=== PATIENT | male | born 1970 | race Caucasian/White ===

== ENCOUNTER → 2017-08-09 | Outpatient (CLI) | payer BC ==
[2017-08-09 07:35] LABS: Basophils # (A) 0.1 k/uL (0-0.2); Basophils % (A) 2 %; CH 30.5; CHCM 34.2; Eosinophils # (A) 0.2 k/uL (0-0.7); Eosinophils % (A) 4 %; HDW 2.52; HGB 16.2 gm/dL (13.0-17.5); Luc # (Auto) 0.24; Luc % (Auto) 3; Lymphocytes # (A) 2.5 k/uL (1.0-4.8); Lymphocytes % (A) 35 %; MCH 28.4 pg (25.0-35.0); MCHC 31.7 g/dL (31.0-37.0); MCV 89.8 fL (80.0-100.0); Mean Platelet Volume 7.8; Monocytes # (A) 0.6 k/uL (0-1.0); Monocytes % (A) 9 %; Neutrophils # (A) 3.3 k/uL (1.3-7.7); Neutrophils % (A) 47 %; RBC 5.68 m/uL (4.30-5.90); RDW 13.6 % (11.5-15.5); WBC (Perox) 6.94
[2017-08-09 07:59] LABS: ALT 66 U/L (21-72); AST 43 U/L (17-59); Alkaline Phosphatase 64 U/L (38-126); Anion Gap 9 mmol/L; Blood Urea Nitrogen 19 mg/dL (9-20); Calcium 9.3 mg/dL (8.4-10.2); Carbon Dioxide 31 mmol/L (22-30); Chloride 107 mmol/L (98-107); Cholesterol 162 mg/dL (<200); Glucose 98 mg/dL (74-99); HDL Cholesterol 41 mg/dL (40-60); Non-African American GFR(MDRD) >60 (>60 ml/min/1.73 sqM); Sodium 147 mmol/L (137-145); Total Bilirubin 0.7 mg/dL (0.2-1.3)
== END | disposition home or self-care (01) ==
LOC: LABWHC1 07:07
PROVIDERS: ATTEND Internal Medicine
DX: Z00.00 Encounter for general adult medical examination without abnormal findings (principal)
CPT/HCPCS: 36415; 80053; 80061; 85025

== ENCOUNTER 2018-09-18 11:09 | Observation (INO) | payer BC ==
[2018-09-18] MEDS ORDERED: ASPIRIN 81 MG PO STA (11:48)
[2018-09-18] MEDS ORDERED: NITROGLYCERIN OINT 1 INCH/GM PACKET TOPICAL STA (11:48)
--- NOTE | 2018-09-18 11:51 | ED ---
General Adult HPI - General Chief complaint: Chest Pain Stated complaint: Chest pain/sob Time Seen by Provider: 09/18/18 11:25 Source: patient, RN notes reviewed Mode of arrival: ambulatory Limitations: no limitations - History of Present Illness Initial comments: This is a 48-year-old male who presents emergency Department with a past history for smoking which he quit in December. Patient states he has high blood pressure high cholesterol. Patient also states he has a family history of heart disease with his dad having had a stent in the past per patient states she's been having intermittent chest pain but today it started when he woke up and he continues to be there now. Patient states the pain radiates to his left shoulder. Patient states she's also short of breath. Patient denies any diaphoresis but he does state he was nauseated with the pain. Patient states he was not exerting himself when the pain occurred. Patient denies any lightheadedness dizziness or near syncopal episode. Patient denies any abdominal pain patient denies any recent fever chills or cough. Patient denies any leg swelling or calf tenderness. - Related Data Home Medications Medication Instructions Recorded Confirmed Aspirin EC [Ecotrin] 325 mg PO DAILY 09/18/18 09/18/18 Escitalopram [Lexapro] 20 mg PO DAILY 09/18/18 09/18/18 Olmesartan Medoxomil [Benicar] 40 mg PO DAILY 09/18/18 09/18/18 Omeprazole 20 mg PO DAILY 09/18/18 09/18/18 Simvastatin [Zocor] 20 mg PO DAILY 09/18/18 09/18/18 Allergies Allergy/AdvReac Type Severity Reaction Status Date / Time Iodinated Contrast- Oral and AdvReac Unknown Verified 09/18/18 11:41 IV Dye Review of Systems ROS Statement: Those systems with pertinent positive or pertinent negative responses have been documented in the HPI. ROS Other: All systems not noted in ROS Statement are negative. Past Medical History Past Medical History: GERD/Reflux, Hyperlipidemia, Hypertension History of Any Multi-Drug Resistant Organisms: None Reported Past Surgical History: Cholecystectomy Past Psychological History: Depression Smoking Status: Former smoker Past Alcohol Use History: Rare Past Drug Use History: None Reported General Exam - General Exam Comments Initial Comments: GENERAL: Patient is well-developed and well-nourished. Patient is nontoxic and well- hydrated and is in mild distress. ENT: Neck is soft and supple. No significant lymphadenopathy is noted. Oropharynx is clear. Moist mucous membranes. Neck has full range of motion without eliciting any pain. EYES: The sclera were anicteric and conjunctiva were pink and moist. Extraocular movements were intact and pupils were equal round and reactive to light. Eyelids were unremarkable. PULMONARY: Unlabored respirations. Good breath sounds bilaterally. No audible rales rhonchi or wheezing was noted. CARDIOVASCULAR: There is a regular rate and rhythm without any murmurs gallops or rubs. ABDOMEN: Soft and nontender with normal bowel sounds. No palpable organomegaly was noted. There is no palpable pulsatile mass. SKIN: Skin is clear with no lesions or rashes and otherwise unremarkable. NEUROLOGIC: Patient is alert and oriented x3. Cranial nerves II through XII are grossly intact. Motor and sensory are also intact. Normal speech, volume and content. Symmetrical smile. MUSCULOSKELETAL: Normal extremities with adequate strength and full range of motion. No lower extremity swelling or edema. No calf tenderness. LYMPHATICS: No significant lymphadenopathy is noted PSYCHIATRIC: Normal psychiatric evaluation. Limitations: no limitations Course Vital Signs 09/18/18 11:29 Temperature 98.5 F Pulse Rate 80 Respiratory 18 Rate Blood Pressure 162/109 O2 Sat by Pulse 98 Oximetry Medical Decision Making - Medical Decision Making EKG shows normal sinus rhythm at 70 bpm [place] interval is 152 QRS is 14 QT interval 392 QTC is 423. Patient's EKG shows no ST segment elevation or depression or T wave abnormalities are noted. Chest x-ray shows no acute normalities. Patient got aspirin and Nitropaste emergency department Patient was started on heparin because the unstable angina. I admitted the patient I spoke with some physicians agreed to admit the patient admitted the patient I consult cardiology continued Nitropaste and aspirin and heparin on the floor. - Lab Data Result diagrams: 09/18/18 12:12 09/18/18 12:12 Lab Results 09/18/18 09/18/18 09/18/18 Range/Units 12:12 12:12 12:12 WBC 6.3 (3.8-10.6) k/uL RBC 4.93 (4.30-5.90) m/uL Hgb 14.4 (13.0-17.5) gm/dL Hct 42.3 (39.0-53.0) % MCV 85.9 (80.0-100.0) fL MCH 29.2 (25.0-35.0) pg MCHC 34.0 (31.0-37.0) g/dL RDW 12.5 (11.5-15.5) % Plt Count 234 (150-450) k/uL Neutrophils % 59 % Lymphocytes % 28 % Monocytes % 7 % Eosinophils % 2 % Basophils % 1 % Neutrophils # 3.7 (1.3-7.7) k/uL Lymphocytes # 1.7 (1.0-4.8) k/uL Monocytes # 0.4 (0-1.0) k/uL Eosinophils # 0.2 (0-0.7) k/uL Basophils # 0.0 (0-0.2) k/uL PT (9.0-12.0) sec INR (<1.2) APTT (22.0-30.0) sec Sodium 139 (137-145) mmol/L Potassium 4.5 (3.5-5.1) mmol/L Chloride 106 (98-107) mmol/L Carbon Dioxide 26 (22-30) mmol/L Anion Gap 7 mmol/L BUN 20 (9-20) mg/dL Creatinine 0.89 (0.66-1.25) mg/dL Est GFR (CKD-EPI)AfAm >90 (>60 ml/min/1.73 sqM) Est GFR (CKD-EPI)NonAf >90 (>60 ml/min/1.73 sqM) Glucose 91 (74-99) mg/dL Calcium 9.2 (8.4-10.2) mg/dL Magnesium 1.7 (1.6-2.3) mg/dL Total Bilirubin 1.3 (0.2-1.3) mg/dL AST 37 (17-59) U/L ALT 50 (21-72) U/L Alkaline Phosphatase 45 (38-126) U/L Total Creatine Kinase 190 H (55-170) U/L CK-MB (CK-2) 2.3 (0.0-2.4) ng/mL CK-MB (CK-2) Rel Index 1.2 Troponin I <0.012 (0.000-0.034) ng/mL Total Protein 6.4 (6.3-8.2) g/dL Albumin 3.6 (3.5-5.0) g/dL 09/18/18 Range/Units 12:12 WBC (3.8-10.6) k/uL RBC (4.30-5.90) m/uL Hgb (13.0-17.5) gm/dL Hct (39.0-53.0) % MCV (80.0-100.0) fL MCH (25.0-35.0) pg MCHC (31.0-37.0) g/dL RDW (11.5-15.5) % Plt Count (150-450) k/uL Neutrophils % % Lymphocytes % % Monocytes % % Eosinophils % % Basophils % % Neutrophils # (1.3-7.7) k/uL Lymphocytes # (1.0-4.8) k/uL Monocytes # (0-1.0) k/uL Eosinophils # (0-0.7) k/uL Basophils # (0-0.2) k/uL PT 10.8 (9.0-12.0) sec INR 1.1 (<1.2) APTT 23.4 (22.0-30.0) sec Sodium (137-145) mmol/L Potassium (3.5-5.1) mmol/L Chloride (98-107) mmol/L Carbon Dioxide (22-30) mmol/L Anion Gap mmol/L BUN (9-20) mg/dL Creatinine (0.66-1.25) mg/dL Est GFR (CKD-EPI)AfAm (>60 ml/min/1.73 sqM) Est GFR (CKD-EPI)NonAf (>60 ml/min/1.73 sqM) Glucose (74-99) mg/dL Calcium (8.4-10.2) mg/dL Magnesium (1.6-2.3) mg/dL Total Bilirubin (0.2-1.3) mg/dL AST (17-59) U/L ALT (21-72) U/L Alkaline Phosphatase (38-126) U/L Total Creatine Kinase (55-170) U/L CK-MB (CK-2) (0.0-2.4) ng/mL CK-MB (CK-2) Rel Index Troponin I (0.000-0.034) ng/mL Total Protein (6.3-8.2) g/dL Albumin (3.5-5.0) g/dL Critical Care Time Critical Care Time: Yes Total Critical Care Time: 35 Disposition Clinical Impression: Unstable angina pectoris Disposition: ADMITTED IP TO THIS HOSP Referrals: Ayan Wynn MD [Primary Care Provider] - 1-2 days Time of Disposition: 13:55
--- NOTE | 2018-09-18 12:28 | XR ---
EXAMINATION TYPE: XR chest 2V DATE OF EXAM: 09/18/2018 COMPARISON: June 07, 2010 HISTORY: Chest pain TECHNIQUE: Frontal and lateral views of the chest are obtained. FINDINGS: There is no focal air space opacity. No evidence for pneumothorax. No pleural effusion. The cardiac silhouette size is within normal limits. The osseous structures are grossly intact. IMPRESSION: 1. No acute cardiopulmonary process.
[2018-09-18 12:37] LABS: RBC 4.93 m/uL (4.30-5.90); WBC 6.3 k/uL (3.8-10.6)
[2018-09-18 12:38] LABS: Basophils % (A) 1 %; Eosinophils # (A) 0.2 k/uL (0-0.7); Eosinophils % (A) 2 %; HCT 42.3 % (39.0-53.0); HGB 14.4 gm/dL (13.0-17.5); Lymphocytes # (A) 1.7 k/uL (1.0-4.8); Lymphocytes % (A) 28 %; MCH 29.2 pg (25.0-35.0); MCV 85.9 fL (80.0-100.0); Mean Platelet Volume 7.5; Monocytes # (A) 0.4 k/uL (0-1.0); Monocytes % (A) 7 %; Neutrophils # (A) 3.7 k/uL (1.3-7.7); Neutrophils % (A) 59 %; Platelet Count 234 k/uL (150-450); RDW 12.5 % (11.5-15.5)
[2018-09-18 12:51] LABS: ALT 50 U/L (21-72); AST 37 U/L (17-59); Albumin 3.6 g/dL (3.5-5.0); Alkaline Phosphatase 45 U/L (38-126); Anion Gap 7 mmol/L; Blood Urea Nitrogen 20 mg/dL (9-20); Calcium 9.2 mg/dL (8.4-10.2); Carbon Dioxide 26 mmol/L (22-30); Chloride 106 mmol/L (98-107); Glucose 91 mg/dL (74-99); Magnesium 1.7 mg/dL (1.6-2.3); Potassium 4.5 mmol/L (3.5-5.1); Sodium 139 mmol/L (137-145); Total Bilirubin 1.3 mg/dL (0.2-1.3); Total Protein 6.4 g/dL (6.3-8.2)
[2018-09-18 13:01] LABS: Creatine Kinase 190 U/L (55-170)
[2018-09-18 13:13] LABS: Creatine Kinase MB 2.3 ng/mL (0.0-2.4); Troponin I <0.012 ng/mL (0.000-0.034)
[2018-09-18 13:28] LABS: INR 1.1 (<1.2); Partial Thromboplastin Time 23.4 sec (22.0-30.0); Prothrombin Time 10.8 sec (9.0-12.0)
[2018-09-18] MEDS ORDERED: HEPARIN SODIUM,PORCINE 5,000 UNIT/ML 1 ML VIAL IV ONE (13:54)
[2018-09-18] MEDS ORDERED: NITROGLYCERIN SL TABS 0.4 MG TAB SUBLINGUAL PRN (13:57)
[2018-09-18] MEDS ORDERED: HEPARIN SOD,PORK IN 0.45% NACL 25,000 UNIT in 0.45% NACL 1 500ML.BAG IV SCH (14:00)
--- NOTE | 2018-09-18 17:04 | P.HPIM ---
History of Present Illness H&P Date: 09/18/18 Chief Complaint: Chest pain The patient is a 48-year-old male with a past with a history of essential hypertension, hyperlipidemia and a former smoker who quit in December of this year who presented to the ER with chief complaint of chest pain. Apparently the patient has been having intermittent episodes of left-sided chest pain over the last several weeks with a been associated with exertion, the patient has also had difficulty controlling his blood pressure. Today in particular the patient while at work began having left-sided chest pressure rated as a 7 out of 10 with radiation into his left upper extremity radiation to his back with associated lightheadedness, nausea and diaphoresis. The patient reported taking his daily aspirin earlier today, the patient denied any palpitations lower extremity swelling but did report some shortness of breath with exertion, he denied any cough subjective fevers chills or night sweats. On arrival the patient was noted to be hypertensive with a blood pressure 162/ 109, is placed on heparin drip, and given nitroglycerin ointment and aspirin. EKG showed normal sinus rhythm without any suggestion of any acute ischemia, plan was negative at less than 0.012. Patient was recommended for admission for chest pain with need to rule out ACS Review of Systems Pertinent positives per HPI , All other review of systems are negative except per HPI Past Medical History Past Medical History: GERD/Reflux, Hyperlipidemia, Hypertension History of Any Multi-Drug Resistant Organisms: None Reported Past Surgical History: Cholecystectomy Past Psychological History: Depression Smoking Status: Former smoker Past Alcohol Use History: Rare Past Drug Use History: None Reported Medications and Allergies Home Medications Medication Instructions Recorded Confirmed Type Aspirin EC [Ecotrin] 325 mg PO DAILY 09/18/18 09/18/18 History Escitalopram [Lexapro] 20 mg PO DAILY 09/18/18 09/18/18 History Olmesartan Medoxomil [Benicar] 40 mg PO DAILY 09/18/18 09/18/18 History Omeprazole 20 mg PO DAILY 09/18/18 09/18/18 History Simvastatin [Zocor] 20 mg PO DAILY 09/18/18 09/18/18 History Allergies Allergy/AdvReac Type Severity Reaction Status Date / Time Iodinated Contrast- Oral and AdvReac Unknown Verified 09/18/18 11:41 IV Dye Physical Exam Vitals: Vital Signs Temp Pulse Resp BP Pulse Ox 09/18/18 15:47 62 18 133/75 98 09/18/18 11:29 98.5 F 80 18 162/109 98 Intake and Output 09/18/18 09/18/18 09/18/18 06:59 14:59 22:59 Other: Weight 145.15 kg Constitutional: No acute distress, conversant, pleasant Eyes: Anicteric sclerae, moist conjunctiva, no lid-lag, PERRLA ENMT: NC/AT,Oropharynx clear, no erythema, exudates Neck:Supple, FROM, no masses, or JVD, No carotid bruits; No thyromegaly Lungs: Clear to auscultation, Clear to percussion, Normal respiratory effort, no accessory muscle use Cardiovascular: Heart regular in rate and rhythm, No murmurs, gallops, or rubs no peripheral edema Abdominal: Soft Nontender, nom distended, no guarding, no rebound or rigidity, Normoactive bowel sounds No hepatomegaly, No splenomegaly, No palpable mass No abdominal wall hernia noted Skin: Normal temperature, tone, texture, turgor, No induration No subcutaneous nodules, No rash, lesions, No ulcers Extremities:No digital cyanosis No clubbing, Pedal pulses intact and symmetrical Radial pulses intact and symmetrical Normal gait and station, No calf tenderness Psychiatric: Alert and oriented to person, place and time, Appropriate affect Intact judgement Neuro: Muscles Strength 5/5 in all 4 extremities, Sensation to light touch grossly present throughout, Cranial nerves II-XII grossly intact. No focal sensory deficits Results CBC & Chem 7: 09/18/18 12:12 09/18/18 12:12 Labs: Abnormal Lab Results - Last 24 Hours (Table) 09/18/18 Range/Units 12:12 Total Creatine Kinase 190 H (55-170) U/L Assessment and Plan (1) Chest pain Current Visit: Yes Status: Acute Code(s): R07.9 - CHEST PAIN, UNSPECIFIED SNOMED Code(s): 00573667 (2) Hypertensive urgency Current Visit: Yes Status: Acute Code(s): I16.0 - HYPERTENSIVE URGENCY SNOMED Code(s): 077692762 (3) Hyperlipidemia Current Visit: Yes Status: Acute Code(s): E78.5 - HYPERLIPIDEMIA, UNSPECIFIED SNOMED Code(s): 08095283 (4) GERD (gastroesophageal reflux disease) Current Visit: Yes Status: Acute Code(s): K21.9 - GASTRO-ESOPHAGEAL REFLUX DISEASE WITHOUT ESOPHAGITIS SNOMED Code(s): 486282753 (5) Morbid obesity Current Visit: Yes Status: Acute Code(s): E66.01 - MORBID (SEVERE) OBESITY DUE TO EXCESS CALORIES SNOMED Code(s): 370782625 Plan: Patient is placed on observation anticipate a less than 2 midnight stay with chest pain concerning for unstable angina with ongoing cardiac risk factors including uncontrolled hypertension, dyslipidemia former smoker and pain with typical features that were relieved by nitroglycerin. Initial EKG and cardiac enzymes are negative for any session acute ischemia, we'll continue sequentially trend cardiac troponins and continue daily aspirin, initiate beta ventura therapy with metoprolol, continue ARB and IV heparin per protocol. We' ll consult cardiology for further recommendations patient was likely need a stress echo, review of his records indicate previous stress echocardiogram in April 2015 was negative for any suggestion of coronary artery. We'll continue to monitor patient's clinical course CODE STATUS full code Discussed plan of care with patient/ Anticipated discharge 1-2 days
[2018-09-18 18:14] LABS: Creatine Kinase 173 U/L (55-170)
[2018-09-18 18:26] LABS: Creatine Kinase MB 1.5 ng/mL (0.0-2.4); Troponin I <0.012 ng/mL (0.000-0.034)
[2018-09-18 18:53] VITALS: BMI 39.9
[2018-09-18] MEDS: NITROGLYCERIN OINT 1 INCH/GM PACKET TOPICAL SCH ×2 (19:36→23:15)
[2018-09-18] MEDS ORDERED: ACETAMINOPHEN TAB 325 MG TAB PO PRN (19:51)
[2018-09-19 00:46] LABS: Creatine Kinase 137 U/L (55-170)
[2018-09-19 00:59] LABS: Creatine Kinase MB 1.3 ng/mL (0.0-2.4); Troponin I <0.012 ng/mL (0.000-0.034)
[2018-09-19] MEDS: NITROGLYCERIN OINT 1 INCH/GM PACKET TOPICAL SCH (03:44)
[2018-09-19 06:01] LABS: Cholesterol 149 mg/dL (<200); HDL Cholesterol 38 mg/dL (40-60); LDL Cholesterol,Calculated 84 mg/dL (0-99); Triglycerides 133 mg/dL (<150)
[2018-09-19] MEDS ORDERED: ASPIRIN 325 MG TAB PO SCH ×2 (09:00)
[2018-09-19] MEDS: PANTOPRAZOLE 40 MG TABLET PO SCH (09:30)
[2018-09-19] MEDS: METOPROLOL TARTRATE 12.5 MG TAB PO SCH (09:31)
[2018-09-19] MEDS: ATORVASTATIN 10 MG TAB PO SCH (09:31)
[2018-09-19] MEDS: LOSARTAN 50 MG TAB PO SCH (09:31)
[2018-09-19] MEDS: ESCITALOPRAM 20 MG TAB PO SCH (09:33)
--- NOTE | 2018-09-19 14:28 | P.PN ---
Subjective Progress Note Date: 09/19/18 Principal diagnosis: Chest pain Patient is doing well this morning. He denies any chest pain or discomfort. He was seen and evaluated by the nurse practitioner working with the cardiology team awaiting the verification manager evaluation. No acute events reported to me by nursing staff. Blood pressure remains not well controlled overnight. Objective - Vital Signs Vital signs: Vital Signs Temp 98.3 F 09/19/18 12:00 Pulse 58 L 09/19/18 12:00 Resp 18 09/19/18 12:00 BP 128/86 09/19/18 12:00 Pulse Ox 98 09/19/18 14:22 Intake & Output 09/18/18 09/19/18 09/19/18 18:59 06:59 18:59 Intake Total 378.932 Balance 378.932 Weight 145.15 kg Intake: Intake, IV Titration 378.932 Amount Heparin Sod,Pork in 0.45% 378.932 NaCl 25,000 unit In 0.45 % NaCl 1 500ml.bag @ 7 UNITS/KG/HR 20.32 mls/hr IV .Q24H [facility] Rx#: [id number] Other: # Voids 1 - Exam General: The patient is awake and alert, in no distress Eye: there is normal conjunctiva bilaterally. Neck: The neck is supple, there is no JVD. Cardiovascular: Normal S1-S2, no S3-S4, no murmurs. Respiratory: Lungs clear to auscultation bilaterally Gastrointestinal: Abdomen is soft, nontender Musculoskeletal: There is no pedal edema. Neurological:. Speech is normal. Skin: Skin is warm and dry - Labs CBC & Chem 7: 09/18/18 12:12 09/18/18 12:12 Labs: Abnormal Lab Results - Last 24 Hours (Table) 09/18/18 09/18/18 09/19/18 Range/Units 17:37 20:41 04:38 APTT 30.3 H (22.0-30.0) sec Total Creatine Kinase 173 H (55-170) U/L HDL Cholesterol 38 L (40-60) mg/dL 09/19/18 Range/Units 04:38 APTT 37.2 H (22.0-30.0) sec Total Creatine Kinase (55-170) U/L HDL Cholesterol (40-60) mg/dL Assessment and Plan Assessment: 1. Hypertensive urgency 2. Chest pain 3. Hyperlipidemia 4. GERD 5. Morbid obesity 48-year-old male who presented to the hospital with chest pain and uncontrolled blood pressure. 12-lead EKG showed no acute ischemic changes. Serial troponin were unremarkable. Patient was seen and evaluated by cardiology. ENT and d- dimer within normal range. Chest x-ray was unremarkable. Awaiting cardiology clearance for discharge or possibly doing a cardiac stress test. We will continue telemetry monitoring.
--- NOTE | 2018-09-19 15:41 | P.CRDCN ---
History of Present Illness History of present illness: This is a pleasant 48-year-old male past medical history significant for hypertension, dyslipidemia, former nicotine dependence quit December 2017 after 20 years, premature coronary artery disease in his father and gastroesophageal reflux disease. We have been asked to see him in consultation for symptoms of chest discomfort. He states he has felt the discomfort in the left thoracic axillary region intermittently for the previous week. Pain is described as a dull pressure sensation. There is no radiation to the arm, back , neck or jaw. He is mildly short of breath with exertion as well as intermittent dizziness and nausea. He states he has been checking his blood pressure at home and his blood pressures and elevated 150s and 60s systolic. Upon arrival to the emergency department blood pressure was 162/109. He states he is compliant with his medications. He denies PND, orthopnea, cough, fever or chills. Discomfort in the left axillary region is ongoing with no specific aggravating or alleviating factor. EKG reveals sinus mechanism with no acute ST or T wave abnormalities noted. Chest x-ray is negative for an acute cardiopulmonary process. Laboratory data reviewed, hemoglobin 14.4, platelets 234, d-dimer 0.48, sodium 139, potassium 4.5, creatinine 0.9, magnesium 1.3, cardiac enzymes negative 3, NT proBNP 44, LDL 84, HDL 38. Current cardiac medications include aspirin 325 mg daily, Benicar 40 mg daily and Zocor 20 mg daily. He also takes omeprazole moexipril. At the time of my exam: CONSTITUTIONAL: Denies fever. Denies chills. EYES: Denies blurred vision. Denies vision changes. Denies eye pain. EARS, NOSE, MOUTH & THROAT: Denies headache. Denies sore throat. Denies ear pain. CARDIOVASCULAR: complains of chest pain. Denies shortness of breath. Denies orthopnea. Denies PND. Denies palpitations. RESPIRATORY: Denies cough. GASTROINTESTINAL: Denies abdominal pain. Denies diarrhea. Denies constipation. Denies nausea. Denies vomiting. MUSCULOSKELETAL: Denies myalgias. INTEGUMENTARY: Denies pruitis. Denies rash. NEUROLOGIC: Denies numbness. Denies tingling. Denies weakness. PSYCHIATRIC: Denies anxiety. Denies depression. ENDOCRINE: Denies fatigue. Denies weight change. Denies polydipsia. Denies polyurina. GENITOURINARY: Denies burning, hematuria or urgency with micturation. HEMATOLOGIC: Denies history of anemia. Denies bleeding. Blood pressure 129/86 heart rate 60 afebrile maintaining oxygen saturation on room air GENERAL: This is a 48-year-old male in no apparent distress at the time of my examination. Obese. HEENT: Head is atraumatic, normocephalic. Pupils are equal, round. Sclerae anicteric. Conjunctivae are clear. Mucous membranes of the mouth are moist. Neck is supple. There is no jugular venous distention. No carotid bruit is heard. LUNGS: Clear to auscultation no wheezes, rales or rhonchi. No chest wall tenderness is noted on palpation or with deep breathing. HEART: Regular rate and rhythm without murmurs, rubs or gallops. S1 and S2 heard. ABDOMEN: Soft, nontender. Bowel sounds are heard. No organomegaly noted. EXTREMITIES: No evidence of peripheral edema and no calf tenderness noted. VASCULAR: Radial and dorsalis pedis pulses palpated, no evidence of clubbing. NEUROLOGIC: Patient is awake, alert and oriented x3. ASSESSMENT Chest pain, atypical. An acute coronary event has been ruled out with no EKG evidence of ischemia and negative cardiac enzymes. Hypertension, uncontrolled Dyslipidemia GERD Former nicotine dependence, quit 12/2017 Obesity, BMI 40 PLAN An acute coronary event has been ruled out with no EKG evidence of ischemia and negative cardiac enzymes. Obtain 2D echocardiogram and doppler study to assess cardiac structure and function. Benicar has been changed to losartan 150 mg daily and lopressor 12.5 mg daily has been added per primary care services. Continue to monitor his blood pressures and increase activity. Assess for ongoing symptoms of chest discomfort. Will continue to monitor for another 24 hours. If stable tomorrow he can go home and follow up in the office for outpatient stress test once his blood pressure is controlled. Thank you kindly for this consultation. Nurse Practitioner note has been reviewed, I agree with a documented findings and plan of care. Patient was seen and examined. Past Medical History Past Medical History: GERD/Reflux, Hyperlipidemia, Hypertension History of Any Multi-Drug Resistant Organisms: None Reported Past Surgical History: Cholecystectomy Past Psychological History: Depression Smoking Status: Former smoker Past Alcohol Use History: Rare Past Drug Use History: None Reported - Past Family History Mother Family Medical History: Cancer Father Family Medical History: Chest Pain / Angina Additional Family Medical History / Comment(s): pt. states that father had stent put in Medications and Allergies Home Medications Medication Instructions Recorded Confirmed Type Aspirin EC [Ecotrin] 325 mg PO DAILY 09/18/18 09/18/18 History Escitalopram [Lexapro] 20 mg PO DAILY 09/18/18 09/18/18 History Olmesartan Medoxomil [Benicar] 40 mg PO DAILY 09/18/18 09/18/18 History Omeprazole 20 mg PO DAILY 09/18/18 09/18/18 History Simvastatin [Zocor] 20 mg PO DAILY 09/18/18 09/18/18 History Allergies Allergy/AdvReac Type Severity Reaction Status Date / Time Iodinated Contrast- Oral and AdvReac Unknown Verified 09/18/18 11:41 IV Dye Physical Exam Vitals: Vital Signs Temp Pulse Pulse Resp BP BP Pulse Ox 09/19/18 03:45 16 09/19/18 03:35 97.8 F 61 16 145/75 94 L 09/19/18 00:00 16 09/18/18 23:29 98.4 F 70 16 133/65 95 09/18/18 20:00 16 09/18/18 19:54 145/84 09/18/18 19:30 98.2 F 60 16 169/97 96 09/18/18 18:15 60 18 121/80 98 09/18/18 15:47 62 18 133/75 98 09/18/18 11:29 98.5 F 80 18 162/109 98 Intake and Output 09/18/18 09/19/18 09/19/18 22:59 06:59 14:59 Intake Total 134.112 244.82 Balance 134.112 244.82 Intake: Intake, IV Titration 134.112 244.82 Amount Heparin Sod,Pork in 0.45% 134.112 244.82 NaCl 25,000 unit In 0.45 % NaCl 1 500ml.bag @ 7 UNITS/KG/HR 20.32 mls/hr IV .Q24H [facility] Rx#: [id number] Other: # Voids 1 Weight 145.15 kg Results 09/18/18 12:12 09/18/18 12:12 Cardiac Enzymes 09/18/18 09/18/18 09/18/18 Range/Units 12:12 12:12 17:37 AST 37 (17-59) U/L CK-MB (CK-2) 2.3 1.5 (0.0-2.4) ng/mL Troponin I <0.012 <0.012 (0.000-0.034) ng/mL 09/18/18 Range/Units 23:49 AST (17-59) U/L CK-MB (CK-2) 1.3 (0.0-2.4) ng/mL Troponin I <0.012 (0.000-0.034) ng/mL Coagulation 09/18/18 09/18/18 09/19/18 Range/Units 12:12 20:41 04:38 PT 10.8 (9.0-12.0) sec APTT 23.4 30.3 H 37.2 H (22.0-30.0) sec Lipids 09/19/18 Range/Units 04:38 Triglycerides 133 (<150) mg/dL Cholesterol 149 (<200) mg/dL HDL Cholesterol 38 L (40-60) mg/dL CBC 09/18/18 Range/Units 12:12 WBC 6.3 (3.8-10.6) k/uL RBC 4.93 (4.30-5.90) m/uL Hgb 14.4 (13.0-17.5) gm/dL Hct 42.3 (39.0-53.0) % Plt Count 234 (150-450) k/uL Comprehensive Metabolic Panel 09/18/18 Range/Units 12:12 Sodium 139 (137-145) mmol/L Potassium 4.5 (3.5-5.1) mmol/L Chloride 106 (98-107) mmol/L Carbon Dioxide 26 (22-30) mmol/L BUN 20 (9-20) mg/dL Creatinine 0.89 (0.66-1.25) mg/dL Glucose 91 (74-99) mg/dL Calcium 9.2 (8.4-10.2) mg/dL AST 37 (17-59) U/L ALT 50 (21-72) U/L Alkaline Phosphatase 45 (38-126) U/L Total Protein 6.4 (6.3-8.2) g/dL Albumin 3.6 (3.5-5.0) g/dL Current Medications Generic Name Dose Route Start Last Admin Trade Name Freq PRN Reason Stop Dose Admin Acetaminophen 650 mg 09/18/18 19:51 Tylenol Tab PO Q4HR PRN Fever and/ or Pain Aspirin 325 mg 09/19/18 09:00 Aspirin PO DAILY [facility] Atorvastatin Calcium 10 mg 09/19/18 09:00 Lipitor PO DAILY [facility] Escitalopram Oxalate 20 mg 09/19/18 09:00 Lexapro PO DAILY [facility] Heparin Sodium/Sodium Chloride 500 mls @ 20.32 mls/hr 09/18/18 14:00 06:13 25,000 unit/ Sodium Chloride IV 13 units/kg/hr .Q24H [facility] 37.73 mls/hr Titration Protocol 7 UNITS/KG/HR Losartan Potassium 150 mg 09/19/18 09:00 Cozaar PO DAILY [facility] Metoprolol Tartrate 12.5 mg 09/19/18 09:00 Lopressor PO DAILY [facility] Nitroglycerin 1 inch 09/18/18 18:00 09/19/18 03:44 Nitro-Bid Oint TOPICAL Not Given Q6HR [facility] Nitroglycerin 0.4 mg 09/18/18 13:57 Nitrostat SUBLINGUAL Q5M PRN Chest Pain Pantoprazole Sodium 40 mg 09/19/18 07:30 Protonix PO AC-BRKFST [facility] Intake and Output 09/18/18 09/19/18 09/19/18 22:59 06:59 14:59 Intake Total 134.112 244.82 Balance 134.112 244.82 Intake: Intake, IV Titration 134.112 244.82 Amount Heparin Sod,Pork in 0.45% 134.112 244.82 NaCl 25,000 unit In 0.45 % NaCl 1 500ml.bag @ 7 UNITS/KG/HR 20.32 mls/hr IV .Q24H [facility] Rx#: [id number] Other: # Voids 1 Weight 145.15 kg 09/18/18 12:12 09/18/18 12:12
[2018-09-20 08:07] VITALS: RESP 18
--- NOTE | 2018-09-20 08:44 | P.PN ---
Subjective Progress Note Date: 09/20/18 This is a 48-year-old gentleman who was admitted with uncontrolled hypertension and chest pain which appeared to be typical. Cardiac enzymes have been negative. EKG did not reveal any acute changes. Echocardiogram showed normal LV function. Patient could be discharged home on current medical therapy. To be scheduled for stress echocardiogram as an outpatient. Follow-up in the office as an outpatient in a week Objective - Vital Signs Vital signs: Vital Signs Temp 98.0 F 09/20/18 08:00 Pulse 62 09/20/18 08:00 Resp 18 09/20/18 08:00 BP 122/86 09/20/18 08:00 Pulse Ox 95 09/20/18 08:00 Intake & Output 09/19/18 09/20/18 09/20/18 18:59 06:59 18:59 Other: # Voids 1 1 - Exam GENERAL EXAM: Patient is alert and oriented and doesn't appear to be in any acute distress HEENT: Normocephalic. Normal reaction of pupils, equal size, normal range of extraocular motion. No erythema or exudates in the throat. NECK: No masses, no nuchal rigidity. CHEST: No chest wall deformity. LUNGS: Equal air entry with no crackles or wheeze. HEART: S1 and S2 normal with no audible mumurs or gallops. Regular rhythm, femorals equal on both sides.. ABDOMEN: No hepatosplenomegaly, normal bowel sounds, no guarding or rigidity. SKIN: No rashes CENTRAL NERVOUS SYSTEM: No focal deficits. EXTREMITIES: No cyanosis, clubbing or edema. - Labs CBC & Chem 7: 09/18/18 12:12 09/18/18 12:12 Assessment and Plan (1) Chest pain Current Visit: Yes Status: Acute Code(s): R07.9 - CHEST PAIN, UNSPECIFIED SNOMED Code(s): 66847507 (2) Hyperlipidemia Current Visit: Yes Status: Acute Code(s): E78.5 - HYPERLIPIDEMIA, UNSPECIFIED SNOMED Code(s): 68712343 (3) Hypertensive urgency Current Visit: Yes Status: Acute Code(s): I16.0 - HYPERTENSIVE URGENCY SNOMED Code(s): 801912786 Plan: Patient is clinically stable. Echo showed normal findings. Patient could be discharged home to have stress echocardiogram as an outpatient. Follow-up in the office after the stress test.
[2018-09-20] MEDS ORDERED: ASPIRIN 81 MG PO SCH (09:00)
[2018-09-20] MEDS: PANTOPRAZOLE 40 MG TABLET PO SCH (09:31)
[2018-09-20] MEDS: LOSARTAN 50 MG TAB PO SCH (09:31)
[2018-09-20] MEDS: METOPROLOL TARTRATE 12.5 MG TAB PO SCH (09:31)
[2018-09-20] MEDS: ATORVASTATIN 10 MG TAB PO SCH (09:31)
[2018-09-20] MEDS: ESCITALOPRAM 20 MG TAB PO SCH (09:33)
--- NOTE | 2018-09-20 10:22 | ECHOF ---
Referral Reason:sob with exertion MEASUREMENTS -------- HEIGHT: 185.4 cm WEIGHT: 145.1 kg BP: RVIDd: 4.2 cm (< 3.3) IVSd: 1.5 cm (0.6 - 1.1) LVIDd: 4.7 cm (3.9 - 5.3) LVPWd: 1.6 cm (0.6 - 1.1) IVSs: 2.1 cm LVIDs: 2.3 cm LVPWs: 2.0 cm Ao Diam: 3.5 cm (2.0 - 3.7) AV Cusp: 2.2 cm (1.5 - 2.6) LA Diam: 3.6 cm (2.7 - 3.8) MV EXCURSION: 18.395 mm (> 18.000) MV EF SLOPE: 107 mm/s (70 - 150) EPSS: 0.5 cm MV E Home: 0.61 m/s MV DecT: 260 ms MV A Home: 0.56 m/s MV E/A Ratio: 1.09 RAP: 5.00 mmHg RVSP: 7.68 mmHg FINDINGS -------- Sinus rhythm. This was a technically difficult study with suboptimal views. The left ventricular size is normal. There is moderate concentric left ventricular hypertrophy. O verall left ventricular systolic function is normal with, an EF between 55 - 60 %. The right ventricle is severely enlarged. The left atrium is normal in size. The right atrium is normal in size. xx ml of Lumason was utilized for enhancement of images. The aortic valve is trileaflet, and appears structurally normal. No aortic stenosis or regurgitation. There is trace mitral regurgitation. Trace tricuspid regurgitation present. The right ventricular systolic pressure, as measured by Dopp ler, is 7.68mmHg. Pulmonic valve appears structurally normal. The aortic root size is normal. The pericardium is normal. CONCLUSIONS -------- 1. Sinus rhythm. 2. This was a technically difficult study with suboptimal views. 3. The left ventricular size is normal. 4. There is moderate concentric left ventricular hypertrophy. 5. Overall left ventricular systolic function is normal with, an EF between 55 - 60 %. 6. The right ventricle is severely enlarged. 7. The left atrium is normal in size. 8. The right atrium is normal in size. 9. xx ml of Lumason was utilized for enhancement of images. 10. The aortic valve is trileaflet, and appears structurally normal. No aortic stenosis or regurgitat ion. 11. There is trace mitral regurgitation. 12. Trace tricuspid regurgitation present. 13. The right ventricular systolic pressure, as measured by Doppler, is 7.68mmHg. 14. Pulmonic valve appears structurally normal. 15. The aortic root size is normal. 16. The pericardium is normal. BEHAVIORAL THERAPY COORDINATOR: Chapis Guerra RDCS
--- NOTE | 2018-09-20 12:02 | P.DS ---
Providers Date of admission: 09/18/18 14:05 Expected date of discharge: 09/20/18 Attending physician: Andrez Zelaya MD Consults: 09/18/18 13:57 Consult Physician Urgent Consulting Provider: [facility] Consult Reason/Comments: Unstable angina Do you want consulting provider notified?: Yes Primary care physician: Ayan Wynn [facility] Course: 1. Hypertensive urgency 2. Chest pain 3. Hyperlipidemia 4. GERD 5. Morbid obesity 48-year-old male who presented to the hospital with chest pain and uncontrolled blood pressure. 12-lead EKG showed no acute ischemic changes. Serial troponin were unremarkable. Patient was seen and evaluated by cardiology. BNP and d- dimer within normal range. Chest x-ray was unremarkable. Patient had an echocardiogram that was unremarkable. He was cleared by cardiology for discharge. Blood pressure well controlled with current regimen. Follow-up with cardiology and PCP as directed. Patient Condition at Discharge: Fair Plan - Discharge Summary Discharge Rx Participant: No New Discharge Prescriptions: New Hydrochlorothiazide [Hydrodiuril] 25 mg PO DAILY #30 tab Continue Omeprazole 20 mg PO DAILY Escitalopram [Lexapro] 20 mg PO DAILY Aspirin EC [Ecotrin] 325 mg PO DAILY Simvastatin [Zocor] 20 mg PO DAILY Olmesartan Medoxomil [Benicar] 40 mg PO DAILY Discharge Medication List Aspirin EC [Ecotrin] 325 mg PO DAILY 09/18/18 [History] Escitalopram [Lexapro] 20 mg PO DAILY 09/18/18 [History] Olmesartan Medoxomil [Benicar] 40 mg PO DAILY 09/18/18 [History] Omeprazole 20 mg PO DAILY 09/18/18 [History] Simvastatin [Zocor] 20 mg PO DAILY 09/18/18 [History] Hydrochlorothiazide [Hydrodiuril] 25 mg PO DAILY #30 tab 09/20/18 [Rx] Follow up Appointment(s)/Referral(s): Ayan Wynn MD [Primary Care Provider] - 3 Days Reji Greer MD [STAFF PHYSICIAN] - 1 Week Discharge Disposition: HOME SELF-CARE
[2018-09-20 12:47] VITALS: BP 130/89; PULSE 52; TEMP 97.6
== END 2018-09-20 13:37 | disposition home or self-care (01) ==
LOC: EC 11:09 → 1SOBS 14:05
PROVIDERS: ADMIT Family Medicine; ATTEND Family Medicine
DX: R07.89 Other chest pain (principal); E78.5 Hyperlipidemia, unspecified; I16.0 Hypertensive urgency; K21.9 Gastro-esophageal reflux disease without esophagitis; E78.00 Pure hypercholesterolemia, unspecified; F32.9 Major depressive disorder, single episode, unspecified; E66.01 Morbid (severe) obesity due to excess calories; Z68.41 Body mass index [BMI] 40.0-44.9, adult; Z90.49 Acquired absence of other specified parts of digestive tract; Z91.041 Radiographic dye allergy status; Z87.891 Personal history of nicotine dependence; Z79.899 Other long term (current) drug therapy; Z79.82 Long term (current) use of aspirin; Z82.49 Family history of ischemic heart disease and other diseases of the circulatory system
CPT/HCPCS: 96366 ×3; 96376; 96365; 99291; 36415; 94760; 93306; 85379; 83880; 80061; 80053; 82550; 82553; 83735; 84484; 85025; 85610; 85730 ×2; 71046; G0378 ×3; J1644 ×2; Q9950; 93005

== ENCOUNTER → 2018-10-02 | Outpatient (CLI) | payer BC ==
--- NOTE | 2018-10-02 20:17 | ECHOS ---
STRESS ECHOCARDIOGRAM INDICATIONS: Chest pain. MEDICATIONS: Benicar, simvastatin, Lexapro, aspirin, omeprazole, hydrochlorothiazide. BASELINE HEART RATE: 76 BASELINE BLOOD PRESSURE: 108/70 MAXIMUM HEART RATE: 150 MAXIMUM BLOOD PRESSURE: 151/65 85% MPHR: 148 100% MPHR: 174 METS: 11.6 MAXIMUM STAGE REACHED: 4 TOTAL EXERCISE TIME: 10:15 PROTOCOL: Stress echo CLINICAL INFORMATION: Baseline rhythm is a sinus mechanism, rate of 76, normal axis and intervals, poor R- wave progression. Baseline blood pressure 108/70 mmHg. Patient exercised on Omar protocol for 10 minutes 15 seconds, reaching peak rate of 150 beats per minute, which is equal to 86% maximum predicted heart rate. Peak blood pressure 151/65 mmHg. Test was terminated because of fatigue. There were no chest pain. Electrocardiograph monitoring revealed no evidence of diagnostic ischemic ST deviation. FINDINGS: Baseline echocardiogram revealed normal wall thickening and motion at peak exercise. There was normal wall motion augmentation with no hypokinesis or dyskinesis. CONCLUSION: 1. Good exercise tolerance with normal electrocardiographic response to exercise. 2. Normal stress echocardiogram with no evidence of stress-induced ischemia. MMODL / IJN: [id number] / MTDD
== END | disposition home or self-care (01) ==
LOC: RADNMMAIN 09:41
PROVIDERS: ATTEND Internal Medicine Cardiovascular Disease
DX: R07.9 Chest pain, unspecified (principal)
CPT/HCPCS: 93351; Q9950

== ENCOUNTER → 2019-08-04 | Outpatient (CLI) | payer BC ==
--- NOTE | 2019-08-04 11:45 | CT ---
EXAMINATION TYPE: CT sinus wo con DATE OF EXAM: 08/04/2019 COMPARISON: CT brain August 29, 2012 HISTORY: Facial pressure and pain per Patient. Chronic sinusitis per order CT DLP: 638 mGycm. Automated Exposure Control for Dose Reduction was Utilized. TECHNIQUE: CT scan of the sinuses is performed without contrast, axial images are obtained, coronal r eformatted images are also reviewed. FINDINGS: Mild mucosal thickening involving right maxillary sinus prominent anterior inferior aspect. Mild to moderate mucosal thickening involving the left maxillary sinus with suspected mucous retenti on cyst and/or polyps inferiorly anteriorly. Some curvilinear calcification or ossification noted denia r root of left second molar tooth seen best coronal image 22. Mild mucosal thickening anteriorly and bilateral ethmoid sinuses The ostiomeatal complex is narrowed but patent on the right due to antral m ucosal thickening coronal image 22 and is patent on the left. Visualized portion of mastoid air cells show no abnormal opacification. The globes are intact bilate rally. Visualized brain parenchyma is unremarkable. IMPRESSION: Chronic paranasal sinus disease as detailed above. No acute sinusitis.
== END | disposition home or self-care (01) ==
LOC: RADCTMAIN 11:16
PROVIDERS: ATTEND Nurse Practitioner Family
DX: J32.9 Chronic sinusitis, unspecified (principal)
CPT/HCPCS: 70486

== ENCOUNTER → 2021-01-26 | Outpatient (CLI) | payer BC ==
--- NOTE | 2021-01-27 09:21 | US ---
EXAMINATION TYPE: US abdomen complete DATE OF EXAM: 01/26/2021 COMPARISON: CT CLINICAL HISTORY: GERD K21.9, RUQ Abd pain R10.11. Gallbladder removed; prior renal stones EXAM MEASUREMENTS: Liver Length: 17.4 cm Gallbladder Wall: surgically removed CBD: 0.4 cm Spleen: 11.0 cm Right Kidney: 10.4 x 5.9 x 5.5 cm Left Kidney: 11.4 x 6.4 x 6.4 cm Pancreas: hyperechoic, limited views due to overlying bowel gas Liver: hyperechoic to right renal cortex and attenuated posteriorly suggests fatty liver Gallbladder: surgically removed Evidence for sonographic Engle's sign: no CBD: wnl Spleen: wnl Right Kidney: No hydronephrosis or masses seen Left Kidney: No hydronephrosis or masses seen Upper IVC: wnl Abd Aorta: wnl IMPRESSION: Fatty liver noted.
== END | disposition home or self-care (01) ==
LOC: RADUSWWP 15:47
PROVIDERS: ATTEND Internal Medicine
DX: K76.0 Fatty (change of) liver, not elsewhere classified (principal)
CPT/HCPCS: 76700

== ENCOUNTER 2021-02-25 16:57 | Emergency (ER) | payer BC ==
[2021-02-25] MEDS ORDERED: PANTOPRAZOLE 40 MG/10 ML VIAL IVP STA (17:23)
[2021-02-25] MEDS ORDERED: SODIUM CHLORIDE 0.9% 1,000 ML IV STA (17:23)
--- NOTE | 2021-02-25 17:31 | ED ---
GI Bleed HPI - General Source: patient Mode of arrival: ambulatory Limitations: no limitations <Reymundo Liu - Last Filed: 02/25/21 19:06> <Noy Dumont - Last Filed: 02/25/21 20:42> - General Chief complaint: GI Bleed Stated complaint: rectal bleeding Time Seen by Provider: 02/25/21 17:10 - History of Present Illness Initial comments: 50-year-old male presents to the emergency department with a chief complaint of rectal bleeding. Patient reports he's been having right flank pain for about 6 weeks that has been constant. States he has seen his primary care physician who obtained an ultrasound with no acute findings. Patient states that he also saw a GI doctor who has scheduled him for a CT. Patient reports over the last several days the pain has increased in severity. States the pain is usually postprandial but he does not have a gallbladder. Also reports having some diarrhea earlier today followed by several episodes of light red rectal bleeding. She denies any abdominal or back pain elsewhere. Denies any chest pain or shortness of breath. Denies any infectious or obstructive urinary symptoms. (Reymundo Liu) - Related Data Home Medications Medication Instructions Recorded Confirmed Aspirin EC [Ecotrin] 325 mg PO DAILY 09/18/18 02/25/21 Escitalopram [Lexapro] 20 mg PO DAILY 09/18/18 02/25/21 Omeprazole 20 mg PO DAILY 09/18/18 02/25/21 Simvastatin [Zocor] 20 mg PO DAILY 09/18/18 02/25/21 Cholecalciferol [Vitamin D3 (25 25 mcg PO DAILY 02/25/21 02/25/21 Mcg = 1000 Iu)] Losartan Potassium [Cozaar] 50 mg PO DAILY 02/25/21 02/25/21 Multivitamins, Thera [Multivitamin 1 tab PO DAILY 02/25/21 02/25/21 (formulary)] Previous Rx's Medication Instructions Recorded hydroCHLOROthiazide [Hydrodiuril] 25 mg PO DAILY #30 tab 09/20/18 Allergies Allergy/AdvReac Type Severity Reaction Status Date / Time Iodinated Contrast Media AdvReac Unknown Verified 02/25/21 17:51 [Iodinated Contrast- Oral and IV Dye] Review of Systems ROS Other: All systems not noted in ROS Statement are negative. <Reymundo Liu - Last Filed: 02/25/21 19:06> ROS Other: All systems not noted in ROS Statement are negative. <DumontNoy blanton Corin - Last Filed: 02/25/21 20:42> ROS Statement: Those systems with pertinent positive or pertinent negative responses have been documented in the HPI. Past Medical History Past Medical History: GERD/Reflux, Hyperlipidemia, Hypertension History of Any Multi-Drug Resistant Organisms: None Reported Past Surgical History: Cholecystectomy Past Psychological History: Depression Smoking Status: Never smoker Past Alcohol Use History: Occasional Past Drug Use History: None Reported - Past Family History Mother Family Medical History: Cancer Father Family Medical History: Chest Pain / Angina Additional Family Medical History / Comment(s): pt. states that father had stent put in <Reymundo Liu - Last Filed: 02/25/21 19:06> General Exam Limitations: no limitations General appearance: alert, in no apparent distress Head exam: Present: atraumatic, normocephalic, normal inspection Eye exam: Present: normal appearance, PERRL, EOMI Pupils: Present: normal accommodation ENT exam: Present: normal exam, normal oropharynx, mucous membranes moist, TM's normal bilaterally, normal external ear exam Neck exam: Present: normal inspection, full ROM. Absent: tenderness Respiratory exam: Present: normal lung sounds bilaterally. Absent: respiratory distress Cardiovascular Exam: Present: regular rate, normal rhythm, normal heart sounds. Absent: systolic murmur Extremities exam: Present: normal inspection, full ROM. Absent: tenderness Back exam: Present: normal inspection, full ROM. Absent: tenderness, CVA tenderness (R), CVA tenderness (L) Neurological exam: Present: alert, oriented X3 Psychiatric exam: Present: normal affect, normal mood Skin exam: Present: warm, dry, intact, normal color <Reymundo Liu - Last Filed: 02/25/21 19:06> Course Vital Signs 02/25/21 17:05 Temperature 98.0 F Pulse Rate 88 Respiratory 16 Rate Blood Pressure 120/81 O2 Sat by Pulse 97 Oximetry Medical Decision Making - Lab Data Result diagrams: 02/25/21 18:01 02/25/21 18:01 <Reymundo Liu - Last Filed: 02/25/21 19:06> - Lab Data Result diagrams: 02/25/21 18:01 02/25/21 18:01 <Noy Dumont - Last Filed: 02/25/21 20:42> - Medical Decision Making At this time, Patient care signed off to Dr. Dumont (Reymundo Liu) Patient care was signed out to me by NADIR Dwyer, patient had presented with complaint of weeks of right flank pain and GI bleeding today. Vitals stable, labs with Hgb 16, CT scan was pending at time of signout. CT scan negative for acute pathology Results were discussed with patient who will follow with GI Dr Fuller as planned. (Noy Dumont) - Lab Data Lab Results 02/25/21 02/25/21 02/25/21 Range/Units 17:50 17:55 18:01 WBC 11.2 H (3.8-10.6) k/uL RBC 5.75 (4.30-5.90) m/uL Hgb 16.3 (13.0-17.5) gm/dL Hct 49.3 (39.0-53.0) % MCV 85.8 (80.0-100.0) fL MCH 28.4 (25.0-35.0) pg MCHC 33.1 (31.0-37.0) g/dL RDW 12.6 (11.5-15.5) % Plt Count 263 (150-450) k/uL MPV 7.8 Neutrophils % 76 % Lymphocytes % 15 % Monocytes % 6 % Eosinophils % 1 % Basophils % 1 % Neutrophils # 8.5 H (1.3-7.7) k/uL Lymphocytes # 1.7 (1.0-4.8) k/uL Monocytes # 0.6 (0-1.0) k/uL Eosinophils # 0.1 (0-0.7) k/uL Basophils # 0.1 (0-0.2) k/uL PT (9.0-12.0) sec INR (<1.2) APTT (22.0-30.0) sec Sodium (137-145) mmol/L Potassium (3.5-5.1) mmol/L Chloride (98-107) mmol/L Carbon Dioxide (22-30) mmol/L Anion Gap mmol/L BUN (9-20) mg/dL Creatinine (0.66-1.25) mg/dL Est GFR (CKD-EPI)AfAm (>60 ml/min/1.73 sqM) Est GFR (CKD-EPI)NonAf (>60 ml/min/1.73 sqM) Glucose (74-99) mg/dL Plasma Lactic Acid Juan M (0.7-2.0) mmol/L Calcium (8.4-10.2) mg/dL Total Bilirubin (0.2-1.3) mg/dL AST (17-59) U/L ALT (4-49) U/L Alkaline Phosphatase (38-126) U/L Troponin I (0.000-0.034) ng/mL Total Protein (6.3-8.2) g/dL Albumin (3.5-5.0) g/dL Blood Type B Positive Blood Type Confirm B Positive Blood Type Recheck No Previous Record Bld Type Recheck Status CABO Indicated Antibody Screen NEGATIVE Spec Expiration Date 02/28/2021 - 235402/25/21 02/25/21 02/25/21 Range/Units 18:01 18:01 18:01 WBC (3.8-10.6) k/uL RBC (4.30-5.90) m/uL Hgb (13.0-17.5) gm/dL Hct (39.0-53.0) % MCV (80.0-100.0) fL MCH (25.0-35.0) pg MCHC (31.0-37.0) g/dL RDW (11.5-15.5) % Plt Count (150-450) k/uL MPV Neutrophils % % Lymphocytes % % Monocytes % % Eosinophils % % Basophils % % Neutrophils # (1.3-7.7) k/uL Lymphocytes # (1.0-4.8) k/uL Monocytes # (0-1.0) k/uL Eosinophils # (0-0.7) k/uL Basophils # (0-0.2) k/uL PT 10.3 (9.0-12.0) sec INR 1.0 (<1.2) APTT 22.7 (22.0-30.0) sec Sodium 140 (137-145) mmol/L Potassium 4.1 (3.5-5.1) mmol/L Chloride 102 (98-107) mmol/L Carbon Dioxide 29 (22-30) mmol/L Anion Gap 9 mmol/L BUN 15 (9-20) mg/dL Creatinine 0.90 (0.66-1.25) mg/dL Est GFR (CKD-EPI)AfAm >90 (>60 ml/min/1.73 sqM) Est GFR (CKD-EPI)NonAf >90 (>60 ml/min/1.73 sqM) Glucose 99 (74-99) mg/dL Plasma Lactic Acid Juan M (0.7-2.0) mmol/L Calcium 9.9 (8.4-10.2) mg/dL Total Bilirubin 0.7 (0.2-1.3) mg/dL AST 41 (17-59) U/L ALT 41 (4-49) U/L Alkaline Phosphatase 56 (38-126) U/L Troponin I <0.012 (0.000-0.034) ng/mL Total Protein 6.9 (6.3-8.2) g/dL Albumin 4.3 (3.5-5.0) g/dL Blood Type Blood Type Confirm Blood Type Recheck Bld Type Recheck Status Antibody Screen Spec Expiration Date 02/25/21 Range/Units 18:01 WBC (3.8-10.6) k/uL RBC (4.30-5.90) m/uL Hgb (13.0-17.5) gm/dL Hct (39.0-53.0) % MCV (80.0-100.0) fL MCH (25.0-35.0) pg MCHC (31.0-37.0) g/dL RDW (11.5-15.5) % Plt Count (150-450) k/uL MPV Neutrophils % % Lymphocytes % % Monocytes % % Eosinophils % % Basophils % % Neutrophils # (1.3-7.7) k/uL Lymphocytes # (1.0-4.8) k/uL Monocytes # (0-1.0) k/uL Eosinophils # (0-0.7) k/uL Basophils # (0-0.2) k/uL PT (9.0-12.0) sec INR (<1.2) APTT (22.0-30.0) sec Sodium (137-145) mmol/L Potassium (3.5-5.1) mmol/L Chloride (98-107) mmol/L Carbon Dioxide (22-30) mmol/L Anion Gap mmol/L BUN (9-20) mg/dL Creatinine (0.66-1.25) mg/dL Est GFR (CKD-EPI)AfAm (>60 ml/min/1.73 sqM) Est GFR (CKD-EPI)NonAf (>60 ml/min/1.73 sqM) Glucose (74-99) mg/dL Plasma Lactic Acid Juan M 0.7 (0.7-2.0) mmol/L Calcium (8.4-10.2) mg/dL Total Bilirubin (0.2-1.3) mg/dL AST (17-59) U/L ALT (4-49) U/L Alkaline Phosphatase (38-126) U/L Troponin I (0.000-0.034) ng/mL Total Protein (6.3-8.2) g/dL Albumin (3.5-5.0) g/dL Blood Type Blood Type Confirm Blood Type Recheck Bld Type Recheck Status Antibody Screen Spec Expiration Date Disposition <Reymundo Liu - Last Filed: 02/25/21 19:06> Is patient prescribed a controlled substance at d/c from ED?: No <Noy Dumont - Last Filed: 02/25/21 20:42> Clinical Impression: GI bleed, Flank pain Disposition: HOME SELF-CARE Condition: Stable Instructions (If sedation given, give patient instructions): Abdominal Pain (ED) Referrals: David Cortez MD [Primary Care Provider] - 1-2 days
[2021-02-25 18:15] LABS: Basophils # (A) 0.1 k/uL (0-0.2); Basophils % (A) 1 %; Eosinophils # (A) 0.1 k/uL (0-0.7); Eosinophils % (A) 1 %; HCT 49.3 % (39.0-53.0); HGB 16.3 gm/dL (13.0-17.5); Lymphocytes # (A) 1.7 k/uL (1.0-4.8); Lymphocytes % (A) 15 %; MCH 28.4 pg (25.0-35.0); MCHC 33.1 g/dL (31.0-37.0); MCV 85.8 fL (80.0-100.0); Mean Platelet Volume 7.8; Monocytes # (A) 0.6 k/uL (0-1.0); Monocytes % (A) 6 %; Neutrophils # (A) 8.5 k/uL (1.3-7.7); Neutrophils % (A) 76 %; Platelet Count 263 k/uL (150-450); RBC 5.75 m/uL (4.30-5.90); RDW 12.6 % (11.5-15.5); WBC 11.2 k/uL (3.8-10.6)
[2021-02-25 18:24] LABS: Partial Thromboplastin Time 22.7 sec (22.0-30.0); Prothrombin Time 10.3 sec (9.0-12.0)
[2021-02-25 18:28] LABS: ALT 41 U/L (4-49); AST 41 U/L (17-59); African American GFR (CKD) >90 (>60 ml/min/1.73 sqM); Albumin 4.3 g/dL (3.5-5.0); Alkaline Phosphatase 56 U/L (38-126); Anion Gap 9 mmol/L; Blood Urea Nitrogen 15 mg/dL (9-20); Calcium 9.9 mg/dL (8.4-10.2); Carbon Dioxide 29 mmol/L (22-30); Chloride 102 mmol/L (98-107); Glucose 99 mg/dL (74-99); Non-African American GFR(CKD) >90 (>60 ml/min/1.73 sqM); Sodium 140 mmol/L (137-145); Total Bilirubin 0.7 mg/dL (0.2-1.3); Total Protein 6.9 g/dL (6.3-8.2)
[2021-02-25 18:34] LABS: Potassium 4.1 mmol/L (3.5-5.1)
[2021-02-25] MEDS ORDERED: methylPREDNISolone SOD SUCCI 125 MG/2 ML VIAL IV STA (19:06)
[2021-02-25] MEDS ORDERED: diphenhydrAMINE 50 MG/ML 1 ML VIAL IVP STA (19:06)
[2021-02-25] MEDS ORDERED: FAMOTIDINE 20 MG/2 ML VIAL IV STA (19:06)
--- NOTE | 2021-02-25 20:27 | CT ---
EXAMINATION TYPE: CT abdomen pelvis w con DATE OF EXAM: 02/25/2021 COMPARISON: 12/28/2010 HISTORY: c/o right flank pain CT DLP: 2468.5 mGycm Automated exposure control for dose reduction was used. CONTRAST: Performed with IV Contrast, patient injected with 100 mL of Isovue 300. Images obtained from the diaphragm to the floor the pelvis with IV contrast. Lung bases are clear of consolidation. There is mild subsegmental atelectasis at the lung bases. Ther e is no pleural effusion. Heart size is normal. There is no pericardial effusion. Liver spleen stomac h pancreas appear intact. Bile ducts are not dilated. There are clips from cholecystectomy. There is no adrenal mass. Kidneys show satisfactory contrast opacification. There is no hydronephrosi s. Ureters are not dilated. There is no retroperitoneal adenopathy. Bladder distends smoothly. There is no inguinal hernia. There is no free fluid in the pelvis. Delayed images show normal renal excreti on. There is no mesenteric edema. There is no ascites or free air. There is no bowel obstruction. Appendi x is inferior and appears normal. Lumbar vertebra have normal alignment. Posterior elements are intact. There is no compression fractur e. Bony pelvis is intact. Hip joints are intact. IMPRESSION: No significant abnormality. Normal appendix. No renal stone or obstruction.
[2021-02-25 21:15] VITALS: BP 129/77; PULSE 62; RESP 18; TEMP 98.3
== END 2021-02-25 21:14 | disposition home or self-care (01) ==
LOC: EC 16:57
DX: K92.2 Gastrointestinal hemorrhage, unspecified (principal); E78.5 Hyperlipidemia, unspecified; F32.9 Major depressive disorder, single episode, unspecified; I10 Essential (primary) hypertension; K21.9 Gastro-esophageal reflux disease without esophagitis; Z79.82 Long term (current) use of aspirin; Z79.899 Other long term (current) drug therapy
CPT/HCPCS: 36415; 93005; 86900; 86901; 80053; 83605; 84484; 85025; 85610; 85730; 86850; 74177; 99285; 96374; 96375; J1200; J2930; C9113; Q9967

== ENCOUNTER 2021-03-12 10:23 | Day surgery (SDC) | payer BC ==
[2021-03-09 11:33] VITALS: BMI 36.6
[~2021-03-12 10:23] MED LIST: LACTATED RINGERS 1,000 ML IV SCH
[2021-03-12 10:51] VITALS: RESP 18; TEMP 97.8
[2021-03-12] MEDS ORDERED: LACTATED RINGERS 1,000 ML IV ONE (10:51)
[2021-03-12] MEDS ORDERED: fentaNYL (PF) 50 MCG/ML 2 ML AMP ONE (11:21)
[2021-03-12] MEDS ORDERED: PROPOFOL 10 MG/ML 20 ML VIAL IV ONE (11:21)
[2021-03-12] MEDS ORDERED: LIDOCAINE 1% INJ 10MG/ML (20 ML MDV) ONE (11:21)
[2021-03-12] MEDS ORDERED: MIDAZOLAM 2 MG/2 ML VIAL ONE (11:21)
[2021-03-12] MEDS ORDERED: KETAMINE 10 MG/ML 20 ML VIAL ONE (11:21)
--- NOTE | 2021-03-12 11:54 | P.PCN ---
Date of Procedure: 03/12/21 Description of Procedure: BRIEF HISTORY: Patient is a 50-year-old male presenting for evaluation of right upper quadrant abdominal pain with esophagogastroduodenoscopy. Symptoms of daily right upper quadrant abdominal pain which is present daily, sharp in quality and waxing and waning in intensity. He is status post cholecystectomy. He is on omeprazole for history of GERD PROCEDURE PERFORMED: Esophagogastroduodenoscopy with biopsy . PREOPERATIVE DIAGNOSIS: Right upper quadrant abdominal pain. ESTIMATED BLOOD LOSS: Minimal. IV sedation per anesthesia. PROCEDURE: After informed consent was obtained, the patient was brought into the endoscopy unit. IV sedation was administered by Anesthesia under continuous monitoring. Initially the Olympus GIF-190 video endoscope was inserted into the mouth. Esophagus intubated without any difficulty. It was gradually advanced into the stomach and duodenum and carefully examined. The bulb and the second part of the duodenum appeared normal, With biopsies taken . The scope at this time was withdrawn to the stomach, adequately insufflated with air, and upon careful examination, mucosa of the antrum, body, cardia and the fundus appeared normal, Except for some mild punctate erythema suggestive of mild gastritis with bi opsies taken . The scope was then withdrawn into the esophagus. The GE junction was located at 42 cm from the incisors. The esophagus appeared normal, Except for 5 cm of salmon-colored mucosa suggestive of Parada's esophagus in the distal esophagus which was biopsied . There were no erosions or ulcerations seen and the patient tolerated the procedure well. IMPRESSION: 1. Suspected Parada's esophagus. 2. Mild gastritis. 3. Biopsies of the duodenum, antrum and body and lower esophagus. RECOMMENDATIONS: The findings of this examination were discussed with the patient and his family. Okay to resume diet. Okay to resume medications. Would pathology from biopsies. Continue omeprazole therapy. Follow up in the GI clinic as scheduled. If Parada's esophagus is confirmed would recommend repeat EGD in 2 years.
[2021-03-12 12:04] VITALS: BP 106/69; PULSE 62
== END 2021-03-12 12:40 | disposition home or self-care (01) ==
LOC: ORWHC2ENDO 10:23
PROVIDERS: ATTEND Internal Medicine
DX: R10.11 Right upper quadrant pain (principal); K21.9 Gastro-esophageal reflux disease without esophagitis; K29.70 Gastritis, unspecified, without bleeding; I10 Essential (primary) hypertension; E78.5 Hyperlipidemia, unspecified; M19.90 Unspecified osteoarthritis, unspecified site; Z79.899 Other long term (current) drug therapy; Z87.891 Personal history of nicotine dependence; Z91.041 Radiographic dye allergy status; Z79.82 Long term (current) use of aspirin
CPT/HCPCS: 88305; 43239; J2250; J2001; J3010; J2704

== ENCOUNTER → 2021-12-06 | Outpatient (CLI) | payer BC ==
--- NOTE | 2021-12-06 16:28 | CONS ---
CONSULTATION DATE OF SERVICE: 12/06/2021 51-year-old gentleman has been evaluated in [facility] for possible obstructive sleep apnea-hypopnea syndrome. HISTORY OF PRESENT ILLNESS SLEEP-WAKE EVALUATION: SLEEP SCHEDULE: Patient's usual sleep schedule from 9:30 p.m. to 4:30 a.m. on weekdays and on weekends a.m. his sleep schedule is different depending from his family activities. DURING SLEEP: He has very loud snoring, grinding teeth and awakenings from sleep with a dry mouth. He usually wakes up from sleep once with nocturia. DURING THE DAY/SLEEP WAKE EVALUATION: During the day, he may feel episodes of depression, usually does not take naps. [place] Sleepiness Scale is 6. No history of hypnagogic hallucinations, sleep paralysis or cataplexy. PAST MEDICAL HISTORY: Positive for hypertension, acid reflux, hyperlipidemia, headaches, sinus problems, depression. PAST SURGICAL HISTORY: Cholecystectomy. MEDICATIONS: Escitalopram 20 mg once a day, losartan 50 mg once a day, hydrochlorothiazide 25 mg once a day, aspirin 81 mg once a day, omeprazole 20 mg once a day, simvastatin 20 mg once a day. SOCIAL HISTORY: Positive for smoking for 25 pack years, quit in 2016. Alcohol consumption occasional. FAMILY HISTORY: Positive for hypertension, heart problems, cancer, mental illness, acid reflux. REVIEW OF SYSTEMS: Awakenings from sleep with dry mouth and nocturia, very loud snoring. PHYSICAL EXAMINATION: GENERAL: gentleman without distress. BP 132/85, HR 72, RR 16, height 6 feet 2 inches, weight 303 pounds. Body mass index 38.9, temperature 98.0. Oxygen saturation at room air 96%. Oropharynx extremely low position of soft palate, Mallampati 4. Wide neck 18-1/4 inches in circumference. Neck: Supple, no JVD. Thyroid is not palpable. LUNGS: Clear to percussion and to auscultation. Good air exchange. No wheezing or rhonchi. HEART: S1, S2 regular. No murmurs, gallops, or rubs. ABDOMEN: Soft and nontender. Bowel sounds are present. No organomegaly appreciated. EXTREMITIES: No clubbing or cyanosis. FAILURE ANALYSIS ENGINEER: Awake, alert, and oriented X3. Cranial nerves 2 to 7 intact. There is no fasciculation or atrophy. noted. No focal deficits observed. IMPRESSION: 1. Loud snoring, awakenings from sleep with nocturia and dry mouth. Extremely low position of soft palate, Mallampati 4, wide neck 18-1/4 inches in circumference; obstructive sleep apnea-hypopnea syndrome. 2. Hypertension. 3. Acid reflux. 4. Hyperlipidemia. 5. Status post cholecystectomy. 6. Headaches. 7. Sinus problems. 8. Depression. PLAN: 1. Home sleep apnea test for evaluation of patient breathing during sleep. 2. CPAP/BiPAP titration if sleep study confirms obstructive sleep apnea-hypopnea syndrome. 3. Preferable position during sleep on the side. 4. No driving if patient feels any sleepiness. 5. I will see patient for follow up visit to explain results of testing and following plan. Thank you for referring this patient for consultation. Sincerely, Gerard Hinds MD, PhD, FAASM Diplomat of [employer] Sleep Medicine Board of [place] [employer] Roaster Helper of [facility] [place] MMODL / IJN: [id number] /
== END ==
LOC: SLEEP 14:15
PROVIDERS: ATTEND Internal Medicine
DX: G47.33 Obstructive sleep apnea (adult) (pediatric) (principal); I10 Essential (primary) hypertension; K21.9 Gastro-esophageal reflux disease without esophagitis; E78.5 Hyperlipidemia, unspecified; J34.9 Unspecified disorder of nose and nasal sinuses; F32.A Depression, unspecified; Z90.49 Acquired absence of other specified parts of digestive tract; Z87.891 Personal history of nicotine dependence; Z79.82 Long term (current) use of aspirin; Z79.899 Other long term (current) drug therapy; Z91.041 Radiographic dye allergy status
CPT/HCPCS: 99211

== ENCOUNTER 2022-01-03 11:50 | Emergency (ER) | payer BC ==
[2022-01-03 11:55] VITALS: RESP 18; TEMP 98.1
[2022-01-03] MEDS ORDERED: SODIUM CHLORIDE 0.9% 500 ML 500 ML IV STA (12:23)
[2022-01-03] MEDS ORDERED: MORPHINE SULFATE 4 MG/ML SYRINGE IV STA (12:23)
--- NOTE | 2022-01-03 12:28 | ED ---
General Adult HPI - General Chief complaint: Abdominal Pain Stated complaint: Poss Kidney Stones Time Seen by Provider: 01/03/22 12:02 Source: patient, RN notes reviewed, old records reviewed Mode of arrival: ambulatory Limitations: no limitations - History of Present Illness Initial comments: 51-year-old male presenting for evaluation of right flank pain and abdominal pain. Patient has remote history of renal colic and kidney stones. He states that he has developed pain over the past 2 days. He's had no vomiting. Normal bowel movement today. No hematuria. He denies fever. - Related Data Home Medications Medication Instructions Recorded Confirmed Escitalopram [Lexapro] 20 mg PO DAILY 09/18/18 01/03/22 Omeprazole 20 mg PO BID 09/18/18 01/03/22 Simvastatin [Zocor] 20 mg PO HS 09/18/18 01/03/22 Cholecalciferol [Vitamin D3 (25 25 mcg PO DAILY 02/25/21 01/03/22 Mcg = 1000 Iu)] Losartan Potassium [Cozaar] 50 mg PO DAILY 02/25/21 01/03/22 hydroCHLOROthiazide [Hydrodiuril] 25 mg PO DAILY 03/09/21 01/03/22 Aspirin EC [Ecotrin Low Dose] 81 mg PO DAILY 01/03/22 01/03/22 Pantoprazole Sodium 40 mg PO AC-BRKFST 01/03/22 01/03/22 Allergies Allergy/AdvReac Type Severity Reaction Status Date / Time Iodinated Contrast Media AdvReac Unknown Verified 03/09/21 11:34 [Iodinated Contrast- Oral and IV Dye] Review of Systems ROS Statement: Those systems with pertinent positive or pertinent negative responses have been documented in the HPI. ROS Other: All systems not noted in ROS Statement are negative. Past Medical History Past Medical History: GERD/Reflux, Hyperlipidemia, Hypertension History of Any Multi-Drug Resistant Organisms: None Reported Past Surgical History: Cholecystectomy Past Psychological History: Depression Smoking Status: Never smoker Past Alcohol Use History: None Reported Past Drug Use History: None Reported - Past Family History Mother Family Medical History: Cancer Father Family Medical History: Chest Pain / Angina Additional Family Medical History / Comment(s): Pt. states that father had stent put in. General Exam Limitations: no limitations General appearance: alert, in no apparent distress Head exam: Present: atraumatic, normocephalic Eye exam: Present: normal appearance, PERRL ENT exam: Present: normal exam Neck exam: Present: normal inspection. Absent: tenderness, meningismus Respiratory exam: Present: normal lung sounds bilaterally. Absent: respiratory distress, wheezes Cardiovascular Exam: Present: regular rate, normal rhythm GI/Abdominal exam: Present: soft. Absent: distended, tenderness, guarding, rebound Extremities exam: Present: normal inspection, normal capillary refill Back exam: Absent: CVA tenderness (R) Neurological exam: Present: alert, oriented X3, CN II-XII intact. Absent: motor sensory deficit Psychiatric exam: Present: normal affect, normal mood Skin exam: Present: warm, dry, intact. Absent: cyanosis, diaphoretic Course Vital Signs 01/03/22 01/03/22 11:53 16:04 Temperature 98.1 F Pulse Rate 76 64 Respiratory 18 18 Rate Blood Pressure 136/84 136/86 O2 Sat by Pulse 96 95 Oximetry EKG Findings - EKG Comments: EKG Findings:: EKG: Sinus rhythm moderate conduction delay rate is 64, AZ interval 167, QRS duration 111, QTC 396, no ST segment elevation. Medical Decision Making - Medical Decision Making 51-year-old male presenting for evaluation of right flank pain and abdominal pain. Patient was concerned that this may be related to renal colic previous history of kidney stones. I did perform CBC, CMP, urinalysis which is all unremarkable. CT shows question of also inflammation surrounding the kidney without hydronephrosis or hydroureter no obstructing stone seen. Patient has normal kidney function, negative urinalysis. Reevaluation is feeling better. He is given strict return parameters. He will follow-up with his primary care physician - Lab Data Result diagrams: 01/03/22 12:47 01/03/22 12:47 Lab Results 01/03/22 01/03/22 01/03/22 Range/Units 12:47 12:47 12:47 WBC 5.8 (3.8-10.6) k/uL RBC 4.94 (4.30-5.90) m/uL Hgb 15.2 (13.0-17.5) gm/dL Hct 43.2 (39.0-53.0) % MCV 87.3 (80.0-100.0) fL MCH 30.8 (25.0-35.0) pg MCHC 35.2 (31.0-37.0) g/dL RDW 12.9 (11.5-15.5) % Plt Count 228 (150-450) k/uL MPV 7.9 Neutrophils % 52 % Lymphocytes % 35 % Monocytes % 7 % Eosinophils % 3 % Basophils % 1 % Neutrophils # 3.0 (1.3-7.7) k/uL Lymphocytes # 2.0 (1.0-4.8) k/uL Monocytes # 0.4 (0-1.0) k/uL Eosinophils # 0.2 (0-0.7) k/uL Basophils # 0.0 (0-0.2) k/uL Sodium 137 (137-145) mmol/L Potassium 4.9 (3.5-5.1) mmol/L Chloride 104 (98-107) mmol/L Carbon Dioxide 27 (22-30) mmol/L Anion Gap 6 mmol/L BUN 20 (9-20) mg/dL Creatinine 0.83 (0.66-1.25) mg/dL Est GFR (CKD-EPI)AfAm >90 (>60 ml/min/1.73 sqM) Est GFR (CKD-EPI)NonAf >90 (>60 ml/min/1.73 sqM) Glucose 95 (74-99) mg/dL Calcium 8.7 (8.4-10.2) mg/dL Total Bilirubin 1.1 (0.2-1.3) mg/dL AST 43 (17-59) U/L ALT 34 (4-49) U/L Alkaline Phosphatase 47 (38-126) U/L Total Protein 7.1 (6.3-8.2) g/dL Albumin 4.0 (3.5-5.0) g/dL Lipase 166 (23-300) U/L Urine Color Yellow Urine Appearance Clear (Clear) Urine pH 7.0 (5.0-8.0) Ur Specific [place] 1.028 (1.001-1.035) Urine Protein Trace H (Negative) Urine Glucose (UA) Negative (Negative) Urine Ketones Negative (Negative) Urine Blood Negative (Negative) Urine Nitrite Negative (Negative) Urine Bilirubin Negative (Negative) Urine Urobilinogen 3.0 (<2.0) mg/dL Ur Leukocyte Esterase Negative (Negative) Disposition Clinical Impression: Abdominal pain Disposition: HOME SELF-CARE Condition: Good Instructions (If sedation given, give patient instructions): Abdominal Pain (ED) Is patient prescribed a controlled substance at d/c from ED?: No Referrals: David Cortez MD [Primary Care Provider] - 1-2 days Time of Disposition: 16:13
[2022-01-03 12:58] LABS: Basophils % (A) 1 %; Eosinophils # (A) 0.2 k/uL (0-0.7); Eosinophils % (A) 3 %; HCT 43.2 % (39.0-53.0); HGB 15.2 gm/dL (13.0-17.5); Lymphocytes % (A) 35 %; MCH 30.8 pg (25.0-35.0); MCHC 35.2 g/dL (31.0-37.0); MCV 87.3 fL (80.0-100.0); Mean Platelet Volume 7.9; Monocytes # (A) 0.4 k/uL (0-1.0); Monocytes % (A) 7 %; Neutrophils % (A) 52 %; Platelet Count 228 k/uL (150-450); RBC 4.94 m/uL (4.30-5.90); RDW 12.9 % (11.5-15.5); WBC 5.8 k/uL (3.8-10.6)
[2022-01-03 13:07] LABS: Appearance,Urine Clear (Clear); Bilirubin,Urine Negative (Negative); Blood,Urine Negative (Negative); Color,Urine Yellow; Glucose,Urine (UA) Negative (Negative); Ketones,Urine Negative (Negative); Leukocyte Esterase,Urine Negative (Negative); Nitrite,Urine Negative (Negative); Protein,Urine Trace (Negative); Specific Gravity,Urine 1.028 (1.001-1.035)
[2022-01-03 13:09] LABS: ALT 34 U/L (4-49); African American GFR (CKD) >90 (>60 ml/min/1.73 sqM); Anion Gap 6 mmol/L; Blood Urea Nitrogen 20 mg/dL (9-20); Calcium 8.7 mg/dL (8.4-10.2); Carbon Dioxide 27 mmol/L (22-30); Chloride 104 mmol/L (98-107); Glucose 95 mg/dL (74-99); Lipase 166 U/L (23-300); Non-African American GFR(CKD) >90 (>60 ml/min/1.73 sqM); Sodium 137 mmol/L (137-145); Total Bilirubin 1.1 mg/dL (0.2-1.3); Total Protein 7.1 g/dL (6.3-8.2)
[2022-01-03 13:10] LABS: AST 43 U/L (17-59); Alkaline Phosphatase 47 U/L (38-126); Potassium 4.9 mmol/L (3.5-5.1)
--- NOTE | 2022-01-03 13:20 | XR ---
KUB HISTORY: Abdominal pain Frontal KUB and [address] abdomen pelvis 02/25/2021 Surgical clips are present right upper quadrant. Lung bases are clear. There is no evident bowel obst ruction or pneumoperitoneum. No evident pathologic calcification. Bones show normal mineralization. IMPRESSION: No acute abnormality.
--- NOTE | 2022-01-03 14:16 | CT ---
EXAMINATION TYPE: CT abdomen pelvis wo con DATE OF EXAM: 01/03/2022 COMPARISON: CT dated 02/25/2021 HISTORY: Right sided flank pain CT DLP: 1793 mGycm Automated exposure control for dose reduction was used. TECHNIQUE: Helical acquisition of images was performed from the lung bases through the pelvis. No IV contrast administration. FINDINGS: LUNG BASES: Basal pulmonary dependent densities and peripheral reticulations. Questionable cardiomega ly. LIVER/GB: Bulky liver. No definite hepatic focal lesion. Previous cholecystectomy. PANCREAS: No significant abnormality is seen. SPLEEN: No significant abnormality is seen. ADRENALS: No significant abnormality is seen. KIDNEYS: Minimal bilateral perinephric fat stranding, slightly more on the left side. Unremarkable ki dneys otherwise. No hydroureter or hydronephrosis. No radiodense urinary calculi. FREE AIR: No free air is visualized RETROPERITONEAL ADENOPATHY: No pathologically enlarged REPRODUCTIVE ORGANS: Bulky prostate, please correlate with PSA level. Unremarkable seminal vesicles URINARY BLADDER: No significant abnormality is seen. PELVIC ADENOPATHY: None visualized. OSSEOUS STRUCTURES: Mild degenerative changes of the lower thoracic spine. BOWEL: Unremarkable nondistended stomach, duodenum and small bowel. Scattered uncomplicated colonic diverticulosis. Normal appendix. OTHER: No sizable ascites. Left fat-containing inguinal hernia with smaller right-sided inguinal chris ia. IMPRESSION: No definite radiodense urinary calculi. No hydroureter or hydronephrosis. Bilateral minimal perinephr ic fat stranding, slightly more on the left side, nonspecific. Underlying acute renal inflammatory/in fectious process cannot be excluded, please correlate clinically and with renal function tests/urinal ysis results. Other incidental findings as described above.
[2022-01-03] MEDS ORDERED: MORPHINE SULFATE 4 MG/ML SYRINGE IVP STA (14:19)
[2022-01-03 16:05] VITALS: BP 136/86; PULSE 64
== END 2022-01-03 17:22 | disposition home or self-care (01) ==
LOC: EC 11:50
DX: R10.9 Unspecified abdominal pain (principal); K21.9 Gastro-esophageal reflux disease without esophagitis; E78.5 Hyperlipidemia, unspecified; I10 Essential (primary) hypertension; F32.A Depression, unspecified; Z90.49 Acquired absence of other specified parts of digestive tract; Z87.442 Personal history of urinary calculi; Z79.82 Long term (current) use of aspirin
CPT/HCPCS: 99284; 96374; 96376; 96361; 36415; 93005; 80053; 83690; 85025; 81003; 74018; 74176; J2270

== ENCOUNTER → 2022-07-18 | Outpatient (CLI) | payer BC ==
--- NOTE | 2022-07-18 16:44 | P.PN ---
Subjective DATE: 07/18/2022 FOLLOW UP VISIT. Patient with obstructive sleep apnea hypopnea syndrome return to sleep center for follow-up visit. Recently patient had sleep study which documented obstructive sleep apnea hypopnea syndrome. Patient was initiated on PAP therapy and today is first visit after treatment was started. Patient was able to use PAP equipment most of the nights. Patient feels better on treatment with CPAP. The patient does not have significant problems with the mask, PAP pressure and humidification. [place] sleepiness scale is 6. I checked information from PAP unit. PAP unit pressure 5-18 cm H2O. Usage is using CPAP for 70 % of nights and 57% for more then 4 hours, average 6.5 hours per night. Leak is 14.7 l/m, which is in acceptable range. Apnea Hypopnea Index is 0.9, which is normal. MEDICATIONS:1. Losartan 50 mg once a day 2. Hydrochlorothiazide 25 mg once a day 3. Aspirin 81 mg once a day 4. Omeprazole 20 mg once a day 5. Simvastatin 20 mg once a day 6. Escitalopram 20 mg once a day During physical exam: GENERAL: A pleasant patient without any distress. VITAL SIGNS: BP 125/85, HR 78, RR 16, weight 287.2, temperature 97.1, oxygen s aturation at room air 95%. HEENT: PERRLA, EOMI.low position of soft palate, Mallapati 4 . NECK: Supple. No JVD. LUNGS: Clear to percussion and to auscultation. Good air exchange. No wheezing or rhonchi. HEART: S1, S2 regular. ABDOMEN: Soft and nontender.[] EXTREMITIES: No clubbing or cyanosis. STEWARDING SUPERVISOR: Awake, alert, and oriented x3. No focal deficit. Impressions: 1. Obstructive sleep apnea-hypopnea syndrome. Patient demonstrated borderline compliance with treatment, benefiting from treatment. 2. Hypertension. 3. Acid reflux. 4. Hyperlipidemia. 5. Headaches. 6. Depression. 7. Status post cholecystectomy. 8. Headaches. Plan: 1. Continue using PAP equipment every night for the whole night. 2. To change air filter at least 1-2 times per month. 3. PAP unit should stay lower then position of the head. 4. Advised patient to remove all remaining water from humidifier canister daily and make it dry after each usage. Refill canister with fresh distilled water before each usage. 5. Sleep hygiene with regular time in bed for at least 8 hours. 6. Precautions related to driving. No driving if feel any sleepiness. 7. I will maintain prescription for PAP supplies including mask, tube, filters. 8. Follow up visit in 6 months or earlier if patient has any problems. 9. Watching weight. Thank you very much for allowing me to participate in the management of your patient. Gerard Hinds MD, PhD, FAASM. Diplomat of [employer] [employer], Sleep Medicine Board by [employer] Waxing Machine Operator Helper of [facility] [place]
== END ==
LOC: SLEEP 16:01
PROVIDERS: ATTEND Internal Medicine
DX: G47.33 Obstructive sleep apnea (adult) (pediatric) (principal); I10 Essential (primary) hypertension; K21.9 Gastro-esophageal reflux disease without esophagitis; E78.5 Hyperlipidemia, unspecified; R51.9 Headache, unspecified; F32.A Depression, unspecified; Z90.49 Acquired absence of other specified parts of digestive tract; Z99.89 Dependence on other enabling machines and devices; Z91.041 Radiographic dye allergy status; Z87.891 Personal history of nicotine dependence

== ENCOUNTER → 2023-03-13 | Outpatient (CLI) | payer OTHER ==
--- NOTE | 2023-03-13 15:42 | XR ---
EXAM TYPE: LUMBAR SPINE X RAY SERIES COMPARISON: NONE HISTORY: Lower back pain TECHNIQUE: 3 views are submitted. FINDINGS: Alignment is anatomic. The pedicles are intact. The transverse processes are intact. There is surg ical clips in the gallbladder fossa and there is a grade 1 anterolisthesis of L3 on L4. There is mult ilevel facet arthropathy with degenerative disc disease at L5-S1. Slight curvature of the spine. SI j oints symmetric. Degenerative disc disease and hypertrophic changes thoracolumbar junction. IMPRESSION: 1. Multilevel degenerative change and facet arthropathy with grade 1 anterolisthesis of L3 on L4. Con clinical unit educator follow-up MRI.
== END | disposition home or self-care (01) ==
LOC: RADXRMAIN 15:23
PROVIDERS: ATTEND Emergency Medicine
DX: S39.012A Strain of muscle, fascia and tendon of lower back, initial encounter (principal); M43.16 Spondylolisthesis, lumbar region; M47.816 Spondylosis without myelopathy or radiculopathy, lumbar region; X58.XXXA Exposure to other specified factors, initial encounter
CPT/HCPCS: 72100

== ENCOUNTER → 2023-03-21 | Outpatient (CLI) | payer OTHER ==
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
== END | disposition home or self-care (01) ==
LOC: RADUSWWP 11:29
PROVIDERS: ATTEND Emergency Medicine
DX: N50.812 Left testicular pain (principal)
CPT/HCPCS: 76870; 93975

== ENCOUNTER → 2023-05-08 | Outpatient (CLI) | payer BC, OTHER ==
--- NOTE | 2023-05-08 14:10 | MR ---
EXAMINATION TYPE: MR lumbar spine wo con DATE OF EXAM: 05/08/2023 1:57 PM COMPARISON: CT 01/03/2022 and 02/25/2021. CLINICAL INDICATION: Male, 52 years old with history of S39.012D; PHH, Low back pain that radiates do wn left leg. TECHNIQUE: Multi planar, multi sequence imaging was performed utilizing: T1-weighted, T2-weighted, a nd turbo inversion recovery imaging of the lumbar spine. IV Contrast: None. FINDINGS: Alignment: The lumbar vertebral bodies have preserved heights and grade 1 anterolisthesis of L3 on L4 . Cord: The conus medullaris and the distal spinal cord appear unremarkable with regards to their sig nal intensity and morphology. Bones/Discs: Abnormal bone signal within the T11-T12 vertebrae corresponding with some sclerosis on p rior CT on 01/03/2022 and also seen dating back to 2020. No abnormal bony edema on inversion recovery s equences. Multilevel disc degenerative is noted and most pronounced at the L3-L4. Intervertebral disc signal is maintained. T12-L1: No evidence of significant spinal canal stenosis or neural foraminal stenosis. L1-L2: No evidence of significant spinal canal stenosis or neural foraminal stenosis. L2-L3: No evidence of significant spinal canal stenosis or neural foraminal stenosis. L3-L4: Disc bulge and facet joint arthropathy result in mild spinal canal and mild bilateral neural f oraminal stenosis. L4-L5: No evidence of significant spinal canal stenosis. Facet joint arthropathy mild bilateral neura l foraminal stenosis. L5-S1: No evidence of significant spinal canal stenosis. Facet joint arthropathy mild bilateral neura l foraminal stenosis. No significant spinal canal or neural foraminal stenosis in the remainder of the visualized levels. Other findings: None. IMPRESSION: 1. No evidence of disc herniation or significant spinal canal or neural foraminal stenosis. 2. Mild disc degeneration with associated osteoarthritic changes. 3. Grade 1 anterolisthesis of L3 on L4.
== END | disposition home or self-care (01) ==
LOC: RADMRIMAIN 12:54
PROVIDERS: ATTEND Emergency Medicine
DX: S39.012D Strain of muscle, fascia and tendon of lower back, subsequent encounter (principal); M43.16 Spondylolisthesis, lumbar region; M51.36 Other intervertebral disc degeneration, lumbar region; M47.816 Spondylosis without myelopathy or radiculopathy, lumbar region
CPT/HCPCS: 72148

== ENCOUNTER → 2023-07-17 | Outpatient (CLI) | payer BC ==
--- NOTE | 2023-07-17 16:19 | P.PN ---
Subjective DATE: 07/17/2023 FOLLOW UP VISIT. Patient with obstructive sleep apnea hypopnea syndrome return to sleep center for follow-up visit. Information from previous visit have been reviewed. Patient is using PAP equipment every night for the whole night, getting PAP supplies in time. The patient does not have significant problems with the mask, PAP unit and humidification. [place] sleepiness scale is 7, which is normal. I checked information from PAP unit. PAP unit pressure 5-18, average 7.7 cm H2O. Usage is 87% and 77 % for more then 4 hours, average 7.5 hours per night. Leak is 13.9 l/m, which is in acceptable range. Apnea Hypopnea Index is 0.5, which is normal. MEDICATIONS:1. Lexapro 2. Omeprazole 3. Losartan 50 mg once a day 4. Hydrochlorothiazide 25 mg once a day During physical exam: GENERAL: A pleasant patient without any distress. VITAL SIGNS: BP 113/71, HR 77, RR 18 , weight 283.8, temperature 98.3, oxygen saturation at room air 99 % . HEENT: PERRLA, EOMI.low position of soft palate, Mallapati 4 . NECK: Supple. No JVD. LUNGS: Clear to percussion and to auscultation. Good air exchange. No wheezing or rhonchi. HEART: S1, S2 regular. ABDOMEN: Soft and nontender.[] EXTREMITIES: No clubbing or cyanosis. MEDICAL RECORD LIBRARIANS TEACHER: Awake, alert, and oriented x3. No focal deficit. Impressions: 1. Obstructive sleep apnea-hypopnea syndrome. Patient demonstrated good compliance with treatment, benefiting from treatment. 2. Hypertension. 3. Acid reflux. 4. Hyperlipidemia. 5. History of depression. 6. Headaches. Plan: 1. Continue using PAP equipment every night for the whole night. 2. To change air filter at least 1-2 times per month. 3. PAP unit should stay lower then position of the head. 4. Advised patient to remove all remaining water from humidifier canister daily and make it dry after each usage. Refill canister with fresh distilled water before each usage. 5. Sleep hygiene with regular time in bed for at least 8 hours. 6. Precautions related to driving. No driving if feel any sleepiness. 7. I will maintain prescription for PAP supplies including mask, tube, filters. 8. Watching and losing weight. 9. Follow up visit in 6 months or earlier if patient has any problems. Thank you very much for allowing me to participate in the management of your patient. Gerard Hinds MD, PhD, FAASM. Diplomat of [place] [employer], Sleep Medicine Board by [place] [employer] Mold Maker Helper of [facility] [place]
== END ==
LOC: 3 N SLEEP 15:34
PROVIDERS: ATTEND Internal Medicine
DX: G47.33 Obstructive sleep apnea (adult) (pediatric) (principal); E78.5 Hyperlipidemia, unspecified; F32.A Depression, unspecified; R51.9 Headache, unspecified; I10 Essential (primary) hypertension; K21.9 Gastro-esophageal reflux disease without esophagitis; Z79.899 Other long term (current) drug therapy; Z99.89 Dependence on other enabling machines and devices; Z91.041 Radiographic dye allergy status; Z79.82 Long term (current) use of aspirin; Z87.891 Personal history of nicotine dependence
CPT/HCPCS: 99212

== ENCOUNTER → 2023-08-12 | Outpatient (CLI) | payer BC ==
--- NOTE | 2023-08-12 17:22 | CA ---
Stress Echo Report Ambrosio Flowers Age: 52 Gender: M : 1970 Exam Date: 08/12/2023 10:16 Exam Location: [facility] Ht (in): 75 Wt (lb): 284 Ordering Physician: David Cortez MD Referring Physician: CHRISTY,, Fret Saw Operator: Kenisha Calderon RDCS Technologist Procedure CPT: Indication: R07.9 CHEST PAIN ICD-9 Codes: Rhythm: Patient History: CP, HEAVENLY, PALPATATIONS, HTN, ELEVATED CHOLESTEROL LEVELS, FAMILY HX OF HEART DISEASE, CHEWING TOBACCO X 34 YEARS Cardiac Medications: LEXAPRO,,,,,, SIMVASTATIN,,,,,, OMEPRAZOLE,,,,,, LOSARTAN,,,,,, HZTZ,,,,,, ASA 81 mg,,,,, Medications in past 24 hours: Contrast: Stress Results Protocol: Omar Total dose(mL): Exercise Duration (min:sec): 11:[address] Depression (mm): Angina Score: Mtz Score: METS: 12.1 Resting HR: 78 Resting BP: 118 / 85 Peak HR: 148 Peak BP: 151 / 63 Max Predicted HR: 170 87 % Max Predicted HR Target HR: 145 Double Product: [id number] Stress Summary: BP Response: Reason for Termination: MAX EXERTION/TARGET HR Cardiac Symptoms: NO SYMPTOMS ECG Analysis Resting ECG: Stress ECG: Arrhythmia: Echo Analysis Resting Echo: Peak Echo Analysis: MEASUREMENTS (Male/Female) Normal Values CONCLUSIONS Normal dobutamine stress echo Exercise capacity on a Omar protocol of 11 minutes 42 seconds No arrhythmias Normal heart rate and blood pressure response Dr. Luke Batista MD (Electronically Signed) Final Date: 12 August 2023 17:21
== END | disposition home or self-care (01) ==
LOC: RADNMMAIN 09:49
PROVIDERS: ATTEND Internal Medicine
DX: R07.9 Chest pain, unspecified (principal); I10 Essential (primary) hypertension; E78.00 Pure hypercholesterolemia, unspecified; Z82.49 Family history of ischemic heart disease and other diseases of the circulatory system
CPT/HCPCS: 93351

== ENCOUNTER 2023-11-05 22:58 | Emergency (ER) | payer BC ==
[2023-11-05 23:13] VITALS: RESP 18
--- NOTE | 2023-11-05 23:53 | ED ---
Chest Pain HPI - General Source: patient, RN notes reviewed Mode of arrival: ambulatory Limitations: no limitations <Mali Brandon - Last Filed: 11/05/23 23:52> - General Source: patient, RN notes reviewed Mode of arrival: ambulatory Limitations: no limitations <Robert Raygoza - Last Filed: 11/06/23 09:21> - General Chief Complaint: Arrhythmia/Palpitations Stated Complaint: Chest Flutter, Shortness of breath, Headache Time Seen by Provider: 11/05/23 23:52 - History of Present Illness Initial Comments: Patient is a 53-year-old male presented ER with chief complaint of palpitations. Patient states this started about 4 hours ago. Patient also endorses shortness of breath and headache which is worse with breathing. Patient denies any known cardiac history. Patient denies any fevers but endorses chills. (Mali Brandon) Patient is a pleasant 33-year-old male presenting to the emergency department feeling well. Onset of symptoms was last night. Patient does have palp itations. Patient does have chills. Patient has mild headache. Patient feels achy and does have mild discomfort in his chest. (Robert Raygoza) - Related Data Home Medications Medication Instructions Recorded Confirmed Escitalopram [Lexapro] 20 mg PO DAILY 09/18/18 01/03/22 Omeprazole 20 mg PO BID 09/18/18 01/03/22 Simvastatin [Zocor] 20 mg PO HS 09/18/18 01/03/22 Cholecalciferol [Vitamin D3 (25 25 mcg PO DAILY 02/25/21 01/03/22 Mcg = 1000 Iu)] Losartan Potassium [Cozaar] 50 mg PO DAILY 02/25/21 01/03/22 hydroCHLOROthiazide [Hydrodiuril] 25 mg PO DAILY 03/09/21 01/03/22 Aspirin EC [Ecotrin Low Dose] 81 mg PO DAILY 01/03/22 01/03/22 Pantoprazole Sodium 40 mg PO AC-BRKFST 01/03/22 01/03/22 Allergies Allergy/AdvReac Type Severity Reaction Status Date / Time Iodinated Contrast Media AdvReac Unknown Verified 11/05/23 23:10 [Iodinated Contrast- Oral and IV Dye] Review of Systems ROS Other: All systems not noted in ROS Statement are negative. <Mali Brandon - Last Filed: 11/05/23 23:52> ROS Other: All systems not noted in ROS Statement are negative. Constitutional: Reports: chills. Denies: fever Eyes: Denies: eye pain ENT: Denies: ear pain Respiratory: Reports: as per HPI Cardiovascular: Reports: as per HPI, palpitations Endocrine: Denies: fatigue Gastrointestinal: Denies: abdominal pain Genitourinary: Denies: urgency <Robert Raygoza Last Filed: 11/06/23 09:21> ROS Statement: Those systems with pertinent positive or pertinent negative responses have been documented in the HPI. EKG Findings - EKG Results: EKG: interpreted by ERMD, sinus rhythm, normal axis, normal QRS, normal ST/T <Robert Raygoza Last Filed: 11/06/23 09:21> Past Medical History Past Medical History: GERD/Reflux, Hyperlipidemia, Hypertension History of Any Multi-Drug Resistant Organisms: None Reported Past Surgical History: Cholecystectomy Past Psychological History: Depression Smoking Status: Never smoker Past Alcohol Use History: Occasional Past Drug Use History: None Reported - Past Family History Mother Family Medical History: Cancer Father Family Medical History: Chest Pain / Angina Additional Family Medical History / Comment(s): Pt. states that father had stent put in. <Mali Brandon - Last Filed: 11/05/23 23:52> General Exam Limitations: no limitations <Mali Brandon - Last Filed: 11/05/23 23:52> Limitations: no limitations General appearance: alert, in no apparent distress Head exam: Present: normocephalic Eye exam: Present: normal appearance Neck exam: Present: normal inspection Respiratory exam: Present: normal lung sounds bilaterally Cardiovascular Exam: Present: regular rate, normal rhythm Expanded Peripheral pulses: 2+: Radial (R), Radial (L), Posterior Tibialis (R), Posterior Tibialis (L) GI/Abdominal exam: Present: soft. Absent: tenderness Extremities exam: Present: normal inspection. Absent: pedal edema, calf tenderness Neurological exam: Present: alert Psychiatric exam: Present: normal affect, normal mood Skin exam: Present: normal color <Robert Raygoza Last Filed: 11/06/23 09:21> - General Exam Comments Initial Comments: Visual Physical Exam Vital signs reviewed General: Well-appearing, nontoxic, no acute distress. Head: Normocephalic, atraumatic Eyes: PERRLA, EOMI ENT: Airway patent Chest: Nonlabored breathing Skin: No visual rash, normal skin tone Neuro: Alert and oriented 3 Musculoskeletal: No gross abnormalities (Mali Brandon) Course Vital Signs 11/05/23 23:11 Temperature 97.6 F Pulse Rate 67 Respiratory 18 Rate Blood Pressure 161/95 O2 Sat by Pulse 95 Oximetry Chest Pain MDM <Mali Brandon - Last Filed: 11/05/23 23:52> <Robert Raygoza - Last Filed: 11/06/23 09:21> - DADA I performed the quick note portion of the exam. Electronically signed by Mali Brandon PA-C (Mali Brandon) Was pt. sent in by a medical professional or institution ([facility] Pope, WEATHER TEACHER, urgent care, hospital, or fpc...) When possible be specific @ -No Did you speak to anyone other than the patient for history (EMS, parent, family, police, friend...)? What history was obtained from this source @ -No Did you review nursing and triage notes (agree or disagree)? Why? @ -I reviewed and agree with nursing and triage notes Were old charts reviewed (outside hosp., previous admission, EMS record, old EKG, old radiological studies, urgent care reports/EKG's, fpc records)? Report findings @ -Previous chest x-ray reviewed Differential Diagnosis (chest pain, altered mental status, abdominal pain women, abdominal pain men, vaginal bleeding, weakness, fever, dyspnea, syncope, headache, dizziness, GI bleed, back pain, seizure, CVA, palpatations, mental health, musculoskeletal)? @ -Differential Dyspnea: Coronary syndrome, arrhythmia, tamponade, asthma, COPD, pulmonary embolism, pneumonia, pneumothorax, pulmonary effusion, anaphylaxis, diabetic ketoacidosis, flailed chest, pulmonary contusion, diaphragmatic rupture, anemia, neuromuscular, this is not meant to be an all-inclusive list. EKG interpreted by me (3pts min.). @ -As above X-rays interpreted by me (1pt min.). @ -Chest x-ray shows no acute process CT interpreted by me (1pt min.). @ -Computed tomography scan with right-sided pulmonary emboli U/S interpreted by me (1pt. min.). @ -None done What testing was considered but not performed or refused? (CT, X-rays, U/S, labs)? Why? @ -None What meds were considered but not given or refused? Why? @ -None Did you discuss the management of the patient with other professionals (professionals i.e. , PA, WEATHER TEACHER, lab, RT, psych nurse, social media specialist, dehydration unit operator, teacher, consumer loan officer, manager case management)? Give summary @ -Case discussed with Dr. Staton, who will admit covering Dr. Joe Was smoking cessation discussed for >3mins.? @ -No Was critical care preformed (if so, how long)? @ -32 minutes critical care time provided Were there social determinants of health that impacted care today? How? (Homelessness, low income, unemployed, alcoholism, drug addiction, transportation, low edu. Level, literacy, decrease access to med. care, custodial, rehab)? @ -No Was there de-escalation of care discussed even if they declined (Discuss DNR or withdrawal of care, Hospice)? DNR status @ -No What co-morbidities impacted this encounter? (DM, HTN, Smoking, COPD, CAD, Cancer, CVA, ARF, Chemo, Hep., AIDS, mental health diagnosis, sleep apnea, morbid obesity)? @ -None Was patient admitted / discharged? Hospital course, mention meds given and route, prescriptions, significant lab abnormalities, going to OR and other pertinent info. @ -Patient will be admitted with IV heparin and pulmonary consult. No evidence of heart strain therefore no need for ekos. Admission orders written. Consult placed. Undiagnosed new problem with uncertain prognosis? @ -No Drug Therapy requiring intensive monitoring for toxicity (Heparin, Nitro, Insulin, Cardizem)? @ -Patient will be monitoring with heparin drip. Were any procedures done? @ -No Diagnosis/symptom? @ -Embolism Acute, or Chronic, or Acute on Chronic? @ -Acute Uncomplicated (without systemic symptoms) or Complicated (systemic symptoms)? @ -default Side effects of treatment? @ -No Exacerbation, Progression, or Severe Exacerbation? @ -No Poses a threat to life or bodily function? How? (Chest pain, [place], GA, pneumonia, PE, COPD, DKA, ARF, appy, cholecystitis, CVA, Diverticulitis, Homicidal, Suicidal, threat to staff... and all critical care pts) @ -No (Robert Raygoza) Critical Care Time Critical Care Time: Yes Total Critical Care Time: 32 <Robert Raygoza - Last Filed: 11/06/23 09:21> Disposition <Mali Brandon - Last Filed: 11/05/23 23:52> Is patient prescribed a controlled substance at d/c from ED?: No Time of Disposition: 09:21 <Robert Raygoza - Last Filed: 11/06/23 09:21> Clinical Impression: Pulmonary embolism Disposition: ADMITTED IP TO THIS HOSP Referrals: David Cortez MD [Primary Care Provider] - 1-2 days
[2023-11-06 01:27] LABS: HCT 43.4 % (39.0-53.0); HGB 14.8 gm/dL (13.0-17.5); MCH 29.4 pg (25.0-35.0); MCHC 34.2 g/dL (31.0-37.0); Mean Platelet Volume 8.2; Platelet Count 245 k/uL (150-450); RBC 5.04 m/uL (4.30-5.90); RDW 12.7 % (11.5-15.5); WBC 9.2 k/uL (3.8-10.6)
[2023-11-06 01:40] LABS: ALT 34 U/L (4-49); AST 34 U/L (17-59); African American GFR (CKD) >90 (>60 ml/min/1.73 sqM); Albumin 4.1 g/dL (3.5-5.0); Alkaline Phosphatase 61 U/L (38-126); Anion Gap 9 mmol/L; Blood Urea Nitrogen 22 mg/dL (9-20); Calcium 9.3 mg/dL (8.4-10.2); Carbon Dioxide 28 mmol/L (22-30); Chloride 103 mmol/L (98-107); Glucose 93 mg/dL (74-99); Non-African American GFR(CKD) 90 (>60 ml/min/1.73 sqM); Potassium 4.2 mmol/L (3.5-5.1); Sodium 140 mmol/L (137-145); Total Bilirubin 0.7 mg/dL (0.2-1.3); Total Protein 6.8 g/dL (6.3-8.2)
--- NOTE | 2023-11-06 02:03 | XR ---
EXAM: XR Chest, 2 Views CLINICAL HISTORY: ITS.REASON XR Reason: angina TECHNIQUE: Frontal and lateral views of the chest. COMPARISON: No relevant prior studies available. FINDINGS: Lungs: No consolidation or mass. Pleural space: No effusion. Heart: cardiomegaly. Bones/joints: No acute findings. IMPRESSION: No acute cardiopulmonary process.
[2023-11-06] MEDS ORDERED: diphenhydrAMINE 50 MG/ML 1 ML VIAL IVP STA (06:22)
[2023-11-06] MEDS ORDERED: methylPREDNISolone SOD SUCCI 125 MG/2 ML VIAL IV STA (06:22)
[2023-11-06] MEDS ORDERED: FAMOTIDINE 20 MG/2 ML VIAL IV STA (06:22)
[2023-11-06] MEDS ORDERED: HEPARIN SODIUM 1,000 UN/ML (10ML VL) IV PRN (08:48)
[2023-11-06] MEDS ORDERED: HEPARIN SODIUM 1,000 UN/ML (10ML VL) IV ONE (08:48)
--- NOTE | 2023-11-06 08:51 | CT ---
EXAMINATION TYPE: CT chest angio for PE DATE OF EXAM: 11/06/2023 COMPARISON: NONE HISTORY: chest pain, SOB CT DLP: 1033.5 mGycm. Automated Exposure Control for Dose Reduction was Utilized. CONTRAST: CTA scan of the thorax is performed with IV Contrast, patient injected with 100 mL of Isovue 300, pul monary embolism protocol. MIP Images are created on CT scanner and reviewed. FINDINGS: LUNGS: Focal bibasilar linear scarring and/or atelectasis. Remainder of lungs are clear. There is no pleural effusion or pneumothorax seen. The tracheobronchial tree is patent. MEDIASTINUM: There is suboptimal bolus with most dense contrast in the SVC and poor overall opacifica tion of the pulmonary arteries. There is however a pulmonary embolism seen at the branch point of rig ht middle and lower lobe with segmental extension axial image 74. Low dense clot extends into segment al and subsegmental branches of the right lower lobe. No definitive left-sided central pulmonary embo li. No right ventricular dilatation. There are no greater than 1 cm hilar or mediastinal lymph nodes. No cardiomegaly or pericardial effusion is seen. OTHER: Cholecystectomy clips are present. IMPRESSION: Suboptimal study with at least small degree of pulmonary embolism in the right lower lung . No convincing CT evidence for right ventricular strain. Critical results communicated to ordering emergency room physician assistant wrestling coach via telephone at time of dictation.
[2023-11-06] MEDS ORDERED: HEPARIN SOD,PORK IN 0.45% NACL 25,000 UNIT in 0.45% NACL 1 250ML.BAG IV SCH (09:00)
[2023-11-06] MEDS ORDERED: NALOXONE 0.4 MG/ML 1 ML VIAL IV PRN (09:21)
[2023-11-06] MEDS ORDERED: SODIUM CHLORIDE 0.9% 1,000 ML IV SCH (09:30)
--- NOTE | 2023-11-06 12:30 | P.CONS ---
History of Present Illness - Reason for Consult Consult date: 11/06/23 Requesting physician: Robert Raygoza - Chief Complaint chest pain, - History of Present Illness 53-year-old man with medical history of hypertension, hyperlipidemia, GERD pres ented for evaluation of chest pain. Patient says that starting yesterday he had sudden onset chest pain, sharp in nature, worse with inspiration. He had some shortness of breath with ambulation. The pain was associated with a headache, which got worse on inspiration as well. Based on the symptoms, patient presents the hospital for further evaluation. Patient denies fevers, chills, nausea, vom iting. Patient reports palpitations. Patient denies cough, reports dyspnea. Patient denies abdominal pain, constipation, diarrhea, dysuria, dyschezia, numbness/weakness of extremities. Patient reports that he has been up-to-date with cancer screening, last colonoscopy was last year and was benign. He has a family history of lung cancer in an elderly age. He denies recent travel, prolonged immobilization, recent surgery. He denies family history of clotting disorders. In the emergency room, patient was afebrile, 161/95, heart rate 67, 95% on room air. CBC was unremarkable. Basic metabolic panel was unremarkable. Liver function tests are unremarkable. Troponins less than 0.012 than trended less than 0.012. Influenza A, B, RSV, Covid were negative. D-dimer was 0.88. EKG showed normal sinus rhythm with normal axis, no evidence of ischemia or right heart strain. CT angiography was a suboptimal study but showed at least a small degree of pulmonary embolism in the right lower lung without evidence of right ventricular strain. All Systems reviewed and pertinent positives and negatives noted in HPI, all other symptoms are negative Gen: in no apparent distress, resting comfortably in bed Eyes: PERRL, no scleral injection or icterus HENT: normocephalic, atraumatic, good hearing acuity, moist mucous membranes Neck: no tracheal deviation, full range of motion Resp: good air exchange, breathing comfortably with no accessory muscle use, no tactile fremitus CVS: good distal perfusion x 4, no pitting edema GI: soft, NTTP, ND, no hepatosplenomegaly : no suprapubic tenderness, no CVAT, bella catheter not present MSK: no clubbing, no cyanosis, no noted contractures of extremities Skin: no noted rashes, petechiae; temperature of skin is appropriate Neuro: moving all extremities without signs of weakness, CN II-XII intact Psych: cooperative, euthymic mood, insight and judgment intact Labs and imaging as above Assessment/plan: Acute pulmonary embolism, submassive, without evidence of right heart strain -Discussed with patient that no provoking factors could be identified at this time, however, as there is no evidence of right heart strain, oxygen requirement, and chest pain can be controlled with oral medications, there is no indication to admit him to the hospital at this time. 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 I requested he follow-up with h is primary care physician in approximately 1 week. I did day camp counselor him on alarm symptoms to return to the hospital including: Worsening chest pain, worsening headache, worsening shortness of breath, any evidence of bleeding. On patient's discharge medication list, I recommended he discontinue aspirin while he is on blood thinner unless there is another primary indication, however, patient denied any history of stroke or AL. Past Medical History Past Medical History: GERD/Reflux, Hyperlipidemia, Hypertension History of Any Multi-Drug Resistant Organisms: None Reported Past Surgical History: Cholecystectomy Past Psychological History: Depression Smoking Status: Never smoker Past Alcohol Use History: Occasional Past Drug Use History: None Reported - Past Family History Mother Family Medical History: Cancer Father Family Medical History: Chest Pain / Angina Additional Family Medical History / Comment(s): Pt. states that father had stent put in. Medications and Allergies Home Medications Medication Instructions Recorded Confirmed Type Escitalopram [Lexapro] 20 mg PO DAILY 09/18/18 01/03/22 History Omeprazole 20 mg PO BID 09/18/18 01/03/22 History Simvastatin [Zocor] 20 mg PO HS 09/18/18 01/03/22 History Cholecalciferol [Vitamin D3 (25 25 mcg PO DAILY 02/25/21 01/03/22 History Mcg = 1000 Iu)] Losartan Potassium [Cozaar] 50 mg PO DAILY 02/25/21 01/03/22 History hydroCHLOROthiazide [Hydrodiuril] 25 mg PO DAILY 03/09/21 01/03/22 History Apixaban [Eliquis Starter Pack 5 - 10 mg PO DIRECTED 30 Days 11/06/23 Rx (for VTE)] #1 each Allergies Allergy/AdvReac Type Severity Reaction Status Date / Time Iodinated Contrast Media AdvReac Unknown Verified 11/05/23 23:10 [Iodinated Contrast- Oral and IV Dye] Physical Exam Osteopathic Statement: *. No significant issues noted on an osteopathic structural exam other than those noted in the History and Physical/Consult. Vitals: Vital Signs Temp Pulse Resp BP Pulse Ox 11/05/23 23:11 97.6 F 67 18 161/95 95 Intake and Output 11/05/23 11/06/23 11/06/23 22:59 06:59 14:59 Other: Weight 127.006 kg Results CBC & Chem 7: 11/06/23 01:19 11/06/23 01:19 Labs: Abnormal Lab Results - Last 24 Hours (Table) 11/06/23 11/06/23 Range/Units 01:19 01:19 D-Dimer 0.88 H (<0.60) mg/L FEU BUN 22 H (9-20) mg/dL
[2023-11-06 12:38] VITALS: BP 130/87; PULSE 75; TEMP 98
[2023-11-06] MEDS ORDERED: FAMOTIDINE 20 MG TAB PO SCH (21:00)
== END 2023-11-06 10:16 | disposition home or self-care (01) ==
LOC: EC 22:58
DX: I26.99 Other pulmonary embolism without acute cor pulmonale (principal); I10 Essential (primary) hypertension; K21.9 Gastro-esophageal reflux disease without esophagitis; F32.A Depression, unspecified; E78.5 Hyperlipidemia, unspecified; Z79.82 Long term (current) use of aspirin; Z79.899 Other long term (current) drug therapy; Z91.041 Radiographic dye allergy status; Z90.49 Acquired absence of other specified parts of digestive tract; Z20.822 Contact with and (suspected) exposure to COVID-19
CPT/HCPCS: 99291 ×2; 96374 ×2; 96375 ×3; 36415; 93005; 85379; 80053; 84484; 85027; 87636; 71046; 71275; J1200; J2930; J3490; Q9967

== ENCOUNTER → 2023-11-25 | Outpatient (CLI) | payer BC ==
--- NOTE | 2023-11-25 13:31 | US ---
EXAMINATION TYPE: US venous doppler duplex LE DATE OF EXAM: 11/25/2023 1:20 PM COMPARISON: NONE CLINICAL INDICATION: Male, 53 years old with history of I26.99 OTHER PULMONARY EMBOLISM; HX of lung c lot. Patient is on blood thinners. No other pain or symptoms. SIDE PERFORMED: Bilateral TECHNIQUE: The lower extremity deep venous system is examined utilizing real time linear array sonog elsy with graded compression, doppler sonography and color-flow sonography. VESSELS IMAGED: Common Femoral Vein Deep Femoral Vein Greater Saphenous Vein * Femoral Vein Popliteal Vein Small Saphenous Vein * Proximal Calf Veins (* superficial vessels) Right Leg: Negative for DVT Left Leg: Negative for DVT IMPRESSION: Grayscale, color doppler, spectral doppler imaging performed of the deep veins of the lo wer extremities. There is normal flow, compressibility, vascular waveforms.
--- NOTE | 2023-11-25 17:55 | CA ---
Transthoracic Echo Report Name: Ambrosio Flowers Age: 53 Gender: M : 1970 Exam Date: 11/25/2023 14:04 Exam Location: [facility] Ht (in): 75 Wt (lb): 290 Ordering Physician: Tate Burns MD Attending/Referring Phys: [employer] Chief Scientist Dayna COELLO Procedure CPT: Indications: I26.99 Cardiac Hx: Technical Quality: Fair Contrast 1: Total Dose (mL): Contrast 2: Total Dose (mL): MEASUREMENTS (Male / Female) Normal Values 2D ECHO LV Diastolic Diameter PLAX 5.1 cm 4.2 - 5.9 / 3.9 - 5.3 cm LV Systolic Diameter PLAX 3.7 cm IVS Diastolic Thickness 1.1 cm 0.6 - 1.0 / 0.6 - 0.9 cm LVPW Diastolic Thickness 1.2 cm 0.6 - 1.0 / 0.6 - 0.9 cm LV Relative Wall Thickness 0.4 LVOT Diameter 2.0 cm LV Diastolic Volume MOD BP 139.5 cm??? 67 - 155 / 56 - 104 cm??? LV Systolic Volume MOD BP 66.4 cm??? 22 - 58 / 19 - 49 cm??? LV Ejection Fraction MOD BP 52.4 % >= 55 % LV Cardiac Index MOD BP 1719.3 cm???/min???m??? LV Diastolic Volume MOD 4C 123.8 cm??? LV Systolic Volume MOD 4C 69.8 cm??? LV Ejection Fraction MOD 4C 43.6 % LV Cardiac Index MOD 4C 1268.3 cm???/min???m??? LV Diastolic Length 4C 8.7 cm LV Systolic Length 4C 7.9 cm LV Diastolic Volume MOD 2C 150.6 cm??? LV Systolic Volume MOD 2C 59.6 cm??? LV Ejection Fraction MOD 2C 60.4 % LV Cardiac Index MOD 2C 2136.3 cm???/min???m??? LV Diastolic Length 2C 9.2 cm LV Systolic Length 2C 7.4 cm LA Volume 76.9 cm??? 18 - 58 / 22 - 52 cm??? LA Volume Index 28.7 cm???/m??? 16 - 28 cm???/m??? Ascending Aorta Diameter 3.5 cm M-MODE Aortic Root Diameter MM 2.9 cm LA Systolic Diameter MM 4.4 cm LA Ao Ratio MM 1.5 AV Cusp Separation MM 2.3 cm DOPPLER AV Peak Velocity 115.4 cm/s AV Peak Gradient 5.3 mmHg AV Mean Velocity 77.2 cm/s AV Mean Gradient 2.8 mmHg AV Velocity Time Integral 24.6 cm LVOT Peak Velocity 102.2 cm/s LVOT Peak Gradient 4.2 mmHg LVOT Velocity Time Integral 25.2 cm LVOT Stroke Volume 80.5 cm??? LVOT Stroke Volume Index 31.3 ml/m??? LVOT Cardiac Index 1891.7 cm???/min???m??? AV Area Cont Eq vti 3.3 cm??? AV Area Cont Eq pk 2.8 cm??? MV Area PHT 3.8 cm??? Mitral E Point Velocity 46.1 cm/s Mitral A Point Velocity 51.8 cm/s Mitral E to A Ratio 0.9 MV Deceleration Time 198.7 ms LV E' Lateral Velocity 9.3 cm/s Mitral E to LV E' Lateral Ratio 5.0 LV E' Septal Velocity 8.1 cm/s Mitral E to LV E' Septal Ratio 5.7 Right Atrial Pressure 3.0 mmHg FINDINGS Left Ventricle Mildly increased left ventricular wall thickness. Left ventricular cavity size normal. Low normal left ventricular systolic function with no obvious regional wall motion abnormalities. Left ventricular ejection fraction is estimated at 50-55%. Right Ventricle Severe right ventricular dilatation. Normal right ventricular global systolic function. Right Atrium Severe right atrial dilatation. Left Atrium Mild left atrial dilatation. Mitral Valve Structurally normal mitral valve. Trace mitral regurgitation. Aortic Valve Trileaflet aortic valve. No aortic valve stenosis or regurgitation. Tricuspid Valve Structurally normal tricuspid valve. No tricuspid regurgitation. Pulmonic Valve Pulmonic valve not well visualized. Pericardium Minimal pericardial effusion (normal variant). Aorta Normal size aortic root and proximal ascending aorta. CONCLUSIONS Normal LV systolic function Previewed by: Dr. Dejon Desai MD (Electronically Signed) Final Date: 25 November 2023 17:54
== END | disposition home or self-care (01) ==
LOC: RADUSWWP 12:48
PROVIDERS: ATTEND Internal Medicine Critical Care Medicine
DX: I26.99 Other pulmonary embolism without acute cor pulmonale (principal); Z79.01 Long term (current) use of anticoagulants
CPT/HCPCS: 93306; 93970

== ENCOUNTER → 2024-07-15 | Outpatient (CLI) | payer BC ==
[2024-07-15 11:35] VITALS: BP 134/75; PULSE 64; RESP 16; TEMP 97.8
--- NOTE | 2024-07-15 12:11 | P.PROGSL ---
Subjective DATE: 07/15/2024 FOLLOW UP VISIT. Patient with obstructive sleep apnea hypopnea syndrome return to sleep center for follow-up visit. Information from previous visit have been reviewed. Patient is using PAP equipment every night for the whole night, getting PAP supplies in time. The patient does not have significant problems with the mask, PAP unit and humidification. [place] sleepiness scale is 7. I checked information from PAP unit. PAP unit pressure 5-18, average 8.0 cm H2O. Usage is 80% and 70% for more then 4 hours, average 7 hours per night. Leak is 10.6 l/m, which is in acceptable range. Apnea Hypopnea Index is 0.9, which is normal. MEDICATIONS Lexapro 20 mg once a day, omeprazole 20 mg once a day, Singulair 20 mg once a day, hydrochlorothiazide 25 mg once a day, losartan 50 mg once a day, aspirin 81 mg once a day. During physical exam: GENERAL: A pleasant patient without any distress. VITAL SIGNS: Please see below, weight is 275.4 lbs. HEENT: PERRLA, EOMI.low position of soft palate, Mallapati 4 . NECK: Supple. No JVD. LUNGS: Clear to percussion and to auscultation. Good air exchange. No wheezing or rhonchi. HEART: S1, S2 regular. ABDOMEN: Soft and nontender.[] EXTREMITIES: No clubbing or cyanosis. SOLDERER ASSEMBLY REPAIR: Awake, alert, and oriented x3. No focal deficit. Impressions: 1. Obstructive sleep apnea-hypopnea syndrome. Patient demonstrated good compliance with treatment, benefiting from treatment. 2. Obesity, BMI 34.8, patient lost 8 pounds comparing with previous visit. 3. Hypertension. 4. Acid reflux. 5. History of headaches. 6. History of depression. 7. Hyperlipidemia. Plan: 1. Continue using PAP equipment every night for the whole night. 2. Sleep hygiene with regular time in bed for at least 7.5-8 hours 3. PAP unit should stay lower then position of the head. 4. Advised patient to remove all remaining water from humidifier canister daily and make it dry after each usage. Refill canister with fresh distilled water before each usage. 5. Watching and continue losing weight. 6. Precautions related to driving. No driving if feel any sleepiness. 7. I will maintain prescription for PAP supplies including mask, tube, filters. 8. Follow up visit in 6 months or earlier if patient has any problems. Thank you very much for allowing me to participate in the management of your pat ient. Gerard Hinds MD, PhD, FAASM. Diplomat of [place] [employer], Sleep Medicine Board by [place] [employer] [facility] [place] Objective - Vital Signs Vital Signs: Vital Signs Temp 97.8 F 07/15/24 11:32 Pulse 64 07/15/24 11:32 Resp 16 07/15/24 11:32 BP 134/75 07/15/24 11:32 Pulse Ox 95 07/15/24 11:32 FiO2 Intake & Output 07/14/24 07/15/24 07/15/24 18:59 06:59 18:59 Weight 124.851 kg Home Medications: Home Medications Medication Instructions Recorded Confirmed Type Escitalopram [Lexapro] 20 mg PO DAILY 09/18/18 01/03/22 History Omeprazole 20 mg PO BID 09/18/18 01/03/22 History Simvastatin [Zocor] 20 mg PO HS 09/18/18 01/03/22 History Cholecalciferol [Vitamin D3 (25 25 mcg PO DAILY 02/25/21 01/03/22 History Mcg = 1000 Iu)] Losartan Potassium [Cozaar] 50 mg PO DAILY 02/25/21 01/03/22 History hydroCHLOROthiazide [Hydrodiuril] 25 mg PO DAILY 03/09/21 01/03/22 History Apixaban [Eliquis Starter Pack 5 - 10 mg PO DIRECTED 30 Days 11/06/23 Rx (for VTE)] #1 each
== END ==
LOC: 3 N SLEEP 11:21
PROVIDERS: ATTEND Internal Medicine
CPT/HCPCS: 99212

== ENCOUNTER → 2025-02-15 | Outpatient (CLI) | payer BC ==
--- NOTE | 2025-02-15 15:58 | XR ---
EXAMINATION TYPE: XR chest 2V DATE OF EXAM: 02/15/2025 3:44 PM COMPARISON: 11/06/2023 CLINICAL INDICATION: Male, 54 years old with history of R06.89 OTHER ABNORMALITIES OF BREATHING R05.8 OTHE, shortness of breath, TECHNIQUE: Frontal and lateral views FINDINGS: Heart normal size. Aorta and pulmonary vasculature within normal limits. Hazy lung densities relating to large patient body habitus. No consolidation or pleural effusion seen. IMPRESSION: Limitations due to patient body habitus. No definite acute process. [facility], Workstation: [email or web address]-JOANN, 02/15/2025 3:56 PM
== END | disposition home or self-care (01) ==
LOC: RADXRMAIN 15:32
PROVIDERS: ATTEND Internal Medicine
DX: R06.89 Other abnormalities of breathing (principal); R05.8 Other specified cough
CPT/HCPCS: 71046

== ENCOUNTER 2025-02-21 15:34 | Inpatient (IN) | payer BC ==
[2025-02-21 16:00] LABS: Basophils # (A) 0.15 10*3/uL (0.00-0.10); Basophils % (A) 0.9 %; Eosinophils # (A) 0.26 10*3/uL (0.04-0.35); Eosinophils % (A) 1.6 %; HCT 44.6 % (39.6-50.0); HGB 15.5 g/dL (13.0-17.0); Lymphocytes % (A) 18.8 %; MCH 30.3 pg (27.0-32.0); MCHC 34.8 g/dL (32.0-37.0); MCV 87.1 fL (80.0-97.0); Mean Platelet Volume 10.1 fL (9.5-12.2); Monocytes # (A) 1.29 10*3/uL (0.20-1.00); Monocytes % (A) 8.1 %; Neutrophils # (A) 11.03 10*3/uL (1.80-7.70); Platelet Count 318 10*3/uL (140-440); RBC 5.12 10*6/uL (4.40-5.60); RDW 12.6 % (11.5-14.5); WBC 15.99 10*3/uL (4.50-10.00)
[2025-02-21 16:10] LABS: ALT 29 U/L (4-49); AST 26 U/L (17-59); African American GFR (CKD) >90 (>60 ml/min/1.73 sqM); Albumin 4.1 g/dL (3.5-5.0); Alkaline Phosphatase 69 U/L (38-126); Anion Gap 6 mmol/L; Blood Urea Nitrogen 22 mg/dL (9-20); Calcium 9.6 mg/dL (8.4-10.2); Carbon Dioxide 31 mmol/L (22-30); Chloride 102 mmol/L (98-107); Glucose 96 mg/dL (74-99); Magnesium 1.8 mg/dL (1.6-2.3); Non-African American GFR(CKD) >90 (>60 ml/min/1.73 sqM); Potassium 4.3 mmol/L (3.5-5.1); Sodium 139 mmol/L (137-145); Total Bilirubin 0.8 mg/dL (0.2-1.3); Total Protein 6.9 g/dL (6.3-8.2)
--- NOTE | 2025-02-21 16:13 | ED ---
General Adult HPI - General Source: patient, RN notes reviewed Mode of arrival: ambulatory Limitations: no limitations <Susan Tijerina - Last Filed: 02/21/25 18:59> <Francisco J Morris - Last Filed: 02/21/25 22:03> - General Chief complaint: Chest Pain Stated complaint: Chest Pain Time Seen by Provider: 02/21/25 15:54 - History of Present Illness Initial comments: 54-year-old male with history of hypertension, hyperlipidemia, and PE, presenting to emergency room with referral from primary care provider to rule out PE. Patient states that approximately a week ago he was experiencing bodyaches, congestion and mild chest pressure. Chest x-ray was completed at the time where he was diagnosed with pneumonia and started on antibiotics. states he was feeling well however yesterday began to experience left-sided pressure in his chest that mildly radiates into his back and felt like his symptoms worsened. endorses an aching sensation in his chest that feels similar as when he had a PE previously. He endorses mild difficulty of breathing. Denies radiation of pain, associated diaphoresis, nausea or vomiting. endorses pain to the left lower extremity earlier today that has resolved. Denies current blood thinner use. 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 (Susan Tijerina) - Related Data Home Medications Medication Instructions Recorded Confirmed Escitalopram [Lexapro] 20 mg PO DAILY 09/18/18 02/21/25 Omeprazole 20 mg PO DAILY 09/18/18 02/21/25 Simvastatin [Zocor] 20 mg PO DAILY 09/18/18 02/21/25 Losartan Potassium [Cozaar] 50 mg PO DAILY 02/25/21 02/21/25 hydroCHLOROthiazide [Hydrodiuril] 25 mg PO DAILY 03/09/21 02/21/25 Aspirin EC [Ecotrin] 325 mg PO DAILY 02/21/25 02/21/25 Fluticasone Nasal [place] [Flonase 1 spray EA NOSTRIL BID PRN 02/21/25 02/21/25 Nasal [place]] Allergies Allergy/AdvReac Type Severity Reaction Status Date / Time Iodinated Contrast Media AdvReac "sneezed" Verified 02/21/25 17:36 [Iodinated Contrast- Oral and IV Dye] Review of Systems ROS Other: All systems not noted in ROS Statement are negative. <Susan Tijerina - Last Filed: 02/21/25 18:59> ROS Other: All systems not noted in ROS Statement are negative. <Francisco J Morris - Last Filed: 02/21/25 22:03> ROS Statement: Those systems with pertinent positive or pertinent negative responses have been documented in the HPI. Past Medical History Past Medical History: GERD/Reflux, Hyperlipidemia, Hypertension History of Any Multi-Drug Resistant Organisms: None Reported Past Surgical History: Cholecystectomy Past Psychological History: Depression Smoking Status: Never smoker Past Alcohol Use History: Occasional Past Drug Use History: None Reported - Past Family History Mother Family Medical History: Cancer Father Family Medical History: Chest Pain / Angina Additional Family Medical History / Comment(s): Pt. states that father had stent put in. <Susan Tijerina - Last Filed: 02/21/25 18:59> General Exam Limitations: no limitations General appearance: alert, in no apparent distress ENT exam: Present: normal exam, mucous membranes moist Neck exam: Present: normal inspection. Absent: tenderness, meningismus, lymphadenopathy Respiratory exam: Present: decreased breath sounds. Absent: normal lung sounds bilaterally, respiratory distress, wheezes, rales, rhonchi, stridor Cardiovascular Exam: Present: regular rate, normal rhythm, normal heart sounds. Absent: systolic murmur, diastolic murmur, rubs, gallop, clicks GI/Abdominal exam: Present: soft, normal bowel sounds. Absent: distended, tenderness, guarding, rebound, rigid Extremities exam: Present: normal inspection, full ROM, normal capillary refill. Absent: tenderness, pedal edema, joint swelling, calf tenderness Back exam: Present: normal inspection <Susan Tijerina - Last Filed: 02/21/25 18:59> Course Vital Signs 02/21/25 02/21/25 02/21/25 15:36 15:52 17:20 Temperature 97.6 F Pulse Rate 69 64 Pulse Rate [ Bilateral Supine Computer Forensics Investigator] Respiratory 14 24 18 Rate Blood Pressure 131/92 131/93 O2 Sat by Pulse 96 97 Oximetry 02/21/25 02/21/25 17:25 20:01 Temperature Pulse Rate 74 Pulse Rate [ 64 Bilateral Supine Computer Forensics Investigator] Respiratory 18 Rate Blood Pressure 137/91 O2 Sat by Pulse 95 Oximetry Medical Decision Making - Lab Data Result diagrams: 02/21/25 15:51 02/21/25 15:51 <Susan Tijerina - Last Filed: 02/21/25 18:59> - Lab Data Result diagrams: 02/21/25 15:51 02/21/25 15:51 <Francisco J Morris - Last Filed: 02/21/25 22:03> - Medical Decision Making Was pt. sent in by a medical professional or institution (, PA, ADOPTION COUNSELOR, urgent care, hospital, or care home...) When possible be specific @ -Patient was advised by primary care provider to report Emergency Department for further evaluation of chest discomfort to rule out potential for PE. Did you speak to anyone other than the patient for history (EMS, parent, family, police, friend...)? What history was obtained from this source @ -No Did you review nursing and triage notes (agree or disagree)? Why? @ -I reviewed and agree with nursing and triage notes Were old charts reviewed (outside hosp., previous admission, EMS record, old EKG, old radiological studies, urgent care reports/EKG's, care home records)? Report findings @ -Reviewed patient's Emergency Department visit note from 11/05/2023 where he presented with complaint of heart palpitations in addition to shortness of br eath and headache that is worse with inspiration. CTA of the chest was completed revealing a right sided pulmonary emboli where he was admitted to the hospital. Chest x-ray completed on with a overall limited impression due to body habitus with no definitive acute process Differential Diagnosis (chest pain, altered mental status, abdominal pain women, abdominal pain men, vaginal bleeding, weakness, fever, dyspnea, syncope, headache, dizziness, GI bleed, back pain, seizure, CVA, palpatations, mental health, musculoskeletal)? @ -Differential Chest Pain: Stable Angina, Unstable Angina, STEMI, NSTEMI Aortic Dissection, Pneumothorax, Musculoskeletal, Esophageal Spasm GERD, Cholecystitis, Pancreatitis, Zoster, this is not meant to be an all-inclusive list. EKG interpreted by me (3pts min.). @ -Completed at 1544 sinus rhythm with a ventricular rate of 68, VT interval 15 7, QRS 106, QTc 379. X-rays interpreted by me (1pt min.). @ -Chest x-ray completed with no acute cardiopulmonary process or disease CT interpreted by me (1pt min.). @ -None done U/S interpreted by me (1pt. min.). @ -None done What testing was considered but not performed or refused? (CT, X-rays, U/S, labs)? Why? @ -None What meds were considered but not given or refused? Why? @ -None Did you discuss the management of the patient with other professionals (professionals i.e. DrJosé Luis, PA, ADOPTION COUNSELOR, lab, RT, psych nurse, social secretary, conference center manager, teacher, commissary officer, caser shoe parts)? Give summary @ -I spoke with radiologist, Dr. Jean, at 1752, who alerted me that the patient is found to have a right lower lobe PE on CTA with no evidence of right heart strain. spoke with unix consultant sound physician, Dr. Nino, who has agreed to admit the patient and he be started on high intensity heparin with CTA diagnosis of PE. Was smoking cessation discussed for >3mins.? @ -No Was critical care preformed (if so, how long)? @ -Yes, greater than 35 minutes due to evidence of PE on CTA and initiation of high intensity heparin. Were there social determinants of health that impacted care today? How? (Homelessness, low income, unemployed, alcoholism, drug addiction, transportation, low edu. Level, literacy, decrease access to med. care, [facility], rehab)? @ -No Was there de-escalation of care discussed even if they declined (Discuss DNR or withdrawal of care, Hospice)? DNR status @ -No What co-morbidities impacted this encounter? (DM, HTN, Smoking, COPD, CAD, Cancer, CVA, ARF, Chemo, Hep., AIDS, mental health diagnosis, sleep apnea, morbid obesity)? @ -None Was patient admitted / discharged? Hospital course, mention meds given and route, prescriptions, significant lab abnormalities, going to OR and other pertinent info. @ -admitted. 54-year-old male presents emergency department with chest pressure. Initial vitals are stable. Overall patient is well-appearing in no signs of respiratory or acute distress my evaluation. EKG pleated with sinus rhythm. He is provided with dose of aspirin for chest pressure. Laboratory testing shows leukocytosis 15.9, left shift neutrophils 11.03. Additionally, patient has elevated D-dimer at 3.05. Troponin not elevated. Patient is premedicated with Solu-Medrol, Pepcid, Benadryl and is evaluated via CTA of the chest to rule out potential PE. CT of the chest reveals a right lower lobe PE that was informed to me at 1752. Patient was started on high intensity heparin and admitted to internal medicine. Pulmonology consult placed. Case discussed with Dr. Morris Undiagnosed new problem with uncertain prognosis? @ -No Drug Therapy requiring intensive monitoring for toxicity (Heparin, Nitro, Insulin, Cardizem)? @ -Yes, heparin Were any procedures done? @ -No Diagnosis/symptom? @ -Right lower lobe pulmonary embolism Acute, or Chronic, or Acute on Chronic? @ -Acute Uncomplicated (without systemic symptoms) or Complicated (systemic symptoms)? @ -Complicated Side effects of treatment? @ -No Exacerbation, Progression, or Severe Exacerbation? @ -No Poses a threat to life or bodily function? How? (Chest pain, [place], [place], pneumonia, PE, COPD, DKA, ARF, appy, cholecystitis, CVA, Diverticulitis, Homicidal, Suicidal, threat to staff... and all critical care pts) @ -Yes, can cause an organ system damage (Susan Tijerina) - Lab Data Lab Results 02/21/25 02/21/25 02/21/25 Range/Units 15:51 15:51 15:51 WBC 15.99 H (4.50-10.00) 10*3/uL RBC 5.12 (4.40-5.60) 10*6/uL Hgb 15.5 (13.0-17.0) g/dL Hct 44.6 (39.6-50.0) % MCV 87.1 (80.0-97.0) fL MCH 30.3 (27.0-32.0) pg MCHC 34.8 (32.0-37.0) g/dL Plt Count 318 (140-440) 10*3/uL MPV 10.1 (9.5-12.2) fL Immature Gran % (Auto) 1.6 % Neutrophils % 69.0 % Lymphocytes % 18.8 % Monocytes % 8.1 % Eosinophils % 1.6 % Basophils % 0.9 % Immature Gran # 0.26 H (0.00-0.04) 10*3/uL Neutrophils # 11.03 H (1.80-7.70) 10*3/uL Lymphocytes # 3.00 (0.90-5.00) 10*3/uL Monocytes # 1.29 H (0.20-1.00) 10*3/uL Eosinophils # 0.26 (0.04-0.35) 10*3/uL Basophils # 0.15 H (0.00-0.10) 10*3/uL PT 10.7 (10.0-12.5) sec INR 1.0 (<1.2) APTT 22.3 (22.0-30.0) sec D-Dimer 3.05 H (<0.60) mg/L FEU Sodium 139 (137-145) mmol/L Potassium 4.3 (3.5-5.1) mmol/L Chloride 102 (98-107) mmol/L Carbon Dioxide 31 H (22-30) mmol/L Anion Gap 6 mmol/L BUN 22 H (9-20) mg/dL Creatinine 0.80 (0.66-1.25) mg/dL Est GFR (CKD-EPI)AfAm >90 (>60 ml/min/1.73 sqM) Est GFR (CKD-EPI)NonAf >90 (>60 ml/min/1.73 sqM) Glucose 96 (74-99) mg/dL Calcium 9.6 (8.4-10.2) mg/dL Magnesium 1.8 (1.6-2.3) mg/dL Total Bilirubin 0.8 (0.2-1.3) mg/dL AST 26 (17-59) U/L ALT 29 (4-49) U/L Alkaline Phosphatase 69 (38-126) U/L Troponin I (0.000-0.034) ng/mL Total Protein 6.9 (6.3-8.2) g/dL Albumin 4.1 (3.5-5.0) g/dL 02/21/25 Range/Units 15:51 WBC (4.50-10.00) 10*3/uL RBC (4.40-5.60) 10*6/uL Hgb (13.0-17.0) g/dL Hct (39.6-50.0) % MCV (80.0-97.0) fL MCH (27.0-32.0) pg MCHC (32.0-37.0) g/dL Plt Count (140-440) 10*3/uL MPV (9.5-12.2) fL Immature Gran % (Auto) % Neutrophils % % Lymphocytes % % Monocytes % % Eosinophils % % Basophils % % Immature Gran # (0.00-0.04) 10*3/uL Neutrophils # (1.80-7.70) 10*3/uL Lymphocytes # (0.90-5.00) 10*3/uL Monocytes # (0.20-1.00) 10*3/uL Eosinophils # (0.04-0.35) 10*3/uL Basophils # (0.00-0.10) 10*3/uL PT (10.0-12.5) sec INR (<1.2) APTT (22.0-30.0) sec D-Dimer (<0.60) mg/L FEU Sodium (137-145) mmol/L Potassium (3.5-5.1) mmol/L Chloride (98-107) mmol/L Carbon Dioxide (22-30) mmol/L Anion Gap mmol/L BUN (9-20) mg/dL Creatinine (0.66-1.25) mg/dL Est GFR (CKD-EPI)AfAm (>60 ml/min/1.73 sqM) Est GFR (CKD-EPI)NonAf (>60 ml/min/1.73 sqM) Glucose (74-99) mg/dL Calcium (8.4-10.2) mg/dL Magnesium (1.6-2.3) mg/dL Total Bilirubin (0.2-1.3) mg/dL AST (17-59) U/L ALT (4-49) U/L Alkaline Phosphatase (38-126) U/L Troponin I <0.012 (0.000-0.034) ng/mL Total Protein (6.3-8.2) g/dL Albumin (3.5-5.0) g/dL Disposition Decision to Admit Reason: Admit from EC Decision Date: 02/21/25 Decision Time: 18:40 <Susan Tijerina - Last Filed: 02/21/25 18:59> <Francisco J Morris - Last Filed: 02/21/25 22:03> Clinical Impression: Pulmonary embolism Disposition: ADMITTED IP TO THIS HOSP Condition: Serious
[2025-02-21 16:16] LABS: Partial Thromboplastin Time 22.3 sec (22.0-30.0); Prothrombin Time 10.7 sec (10.0-12.5)
[2025-02-21] MEDS: ASPIRIN 81 MG PO STA (16:32)
--- NOTE | 2025-02-21 16:33 | XR ---
EXAMINATION TYPE: XR chest 2V DATE OF EXAM: 02/21/2025 4:07 PM COMPARISON: Chest radiographs from 02/15/2025 CLINICAL INDICATION: Male, 54 years old with history of Chest Pain; TECHNIQUE: XR chest 2V Frontal and lateral views of the chest. FINDINGS: Lungs/Pleura: There is no evidence of pleural effusion, focal consolidation, or pneumothorax. Pulmonary vascularity: Unremarkable. Heart/mediastinum: Cardiomediastinal silhouette is unremarkable. Musculoskeletal: No acute osseous pathology. Other findings: None IMPRESSION: No acute cardiopulmonary disease/process. [facility], , 02/21/2025 4:31 PM
[2025-02-21] MEDS: methylPREDNISolone SOD SUCCI 125 MG/2 ML VIAL IV STA (16:36)
[2025-02-21] MEDS: FAMOTIDINE 20 MG/2 ML VIAL IV STA (16:51)
[2025-02-21] MEDS: diphenhydrAMINE 50 MG/ML 1 ML VIAL IVP STA (16:51)
--- NOTE | 2025-02-21 18:00 | CT ---
EXAMINATION TYPE: CT chest angio for PE DATE OF EXAM: 02/21/2025 5:12 PM COMPARISON: 11/06/2023 CLINICAL INDICATION: Male, 54 years old with history of HEAVENLY, L sided chest pain, hx PE, elevated dime r; HEAVENLY, chest pain, high dimer. TECHNIQUE/CONTRAST: CTA scan of the thorax is performed with IV Contrast, patient injected with 100 ml mL of Isovue 370, MIP images are created and reviewed these are created on a separate workstation.. CT DLP: 1125.2 mGycm, Automated exposure control for dose reduction was used. FINDINGS: Lungs/Pleura: No evidence of focal consolidation, pleural effusion or pneumothorax. Airway: Large airways are patent. Heart: Size within normal limits. No significant coronary artery calcifications. Vasculature: Suboptimal exam due to bolus timing. Filling defect is seen within the right lower lobe pulmonary arterial vasculature series 411 image 84. Additional filling defects are thought to be seen which are subtle due to phase of contrast including right upper lobe series 4 through image 78 and 8 0a right middle lobe image 61. Mediastinum: No gross evidence of adenopathy. Musculoskeletal: Mild disc degeneration changes are present throughout the thoracolumbar spine second lokesh to osteophyte formation and facet joint arthropathy. Soft Tissues/lymph nodes: Unremarkable. Lower neck: No significant findings. Upper Abdomen: No significant findings. IMPRESSION: Scattered bilateral filling defects are seen compatible with pulmonary emboli. No evidence right hear t strain. . Findings communicated to Susan Tijerina PAC on 02/21/2025 5:[address] Tino Jean. [facility], , 02/21/2025 5:58 PM
[2025-02-21] MEDS ORDERED: HEPARIN SODIUM 1,000 UN/ML (10ML VL) IV PRN (18:02)
[2025-02-21] MEDS: HEPARIN SOD,PORK IN 0.45% NACL 25,000 UNIT in 0.45% NACL 1 250ML.BAG IV SCH (18:18)
[2025-02-21] MEDS: HEPARIN SODIUM 1,000 UN/ML (10ML VL) IV ONE (18:20)
[2025-02-21] MEDS ORDERED: MORPHINE SULFATE 4 MG/ML SYRINGE IV PRN (18:22)
[2025-02-21] MEDS ORDERED: ACETAMINOPHEN TAB 325 MG TAB PO PRN (18:22)
[2025-02-21] MEDS ORDERED: ONDANSETRON 4 MG/2 ML VIAL IVP PRN (18:22)
[2025-02-21] MEDS ORDERED: NALOXONE 0.4 MG/ML 1 ML VIAL IV PRN (18:22)
[2025-02-21] MEDS ORDERED: FLUTICASONE NASAL 50MCG/SPRAY 16GM BTL EA NOSTRIL PRN (19:31)
--- NOTE | 2025-02-21 20:31 | US ---
EXAMINATION TYPE: US venous doppler duplex LE LT DATE OF EXAM: 02/21/2025 8:26 PM COMPARISON: US 11/25/23 CLINICAL INDICATION: Male, 54 years old with history of left leg pain r/o DVT; patient hx PE. states he was having left leg pain. no swelling or redness. takes aspirin., Pain TECHNIQUE: The lower extremity deep venous system is examined utilizing real time linear array sonog elsy with graded compression, color doppler sonography, and spectral doppler. SIDE PERFORMED: Left FINDINGS: VESSELS IMAGED: Common Femoral Vein Deep Femoral Vein Greater Saphenous Vein * Femoral Vein Popliteal Vein Small Saphenous Vein * Proximal Calf Veins (* superficial vessels) Left Leg: negative for dvt, Color Doppler imaging shows patency of the vessels. Spectral waveforms a re within normal limits. IMPRESSION: No ultrasound evidence for deep venous thrombosis. [facility], , 02/21/2025 8:29 PM
[2025-02-21] MEDS: ENOXAPARIN 40 MG/0.4 ML SYRINGE SQ SCH (20:36)
--- NOTE | 2025-02-21 21:00 | P.HPIM ---
History of Present Illness H&P Date: 02/21/25 Patient is a 60-year-old male with hypertension, GERD, hyperlipidemia, depression and history of pulmonary embolism (placed on apixaban for 6 months on 11/26) here for evaluation of chest pressure. Patient reported that 5 days ago patient noted to have experienced pneumonialike symptoms with shortness of breath. He sought care with his PCP and had a chest x-ray done that showed pneumonia. He was given steroids oral and Zithromax for 5 days. However his symptoms did not fully improve. Last night, he began to experience left lower extremity pain that was a squeezing pain around his calf area that was worse with weightbearing that was intermittent. Then this morning, he began to experience chest pressure that was sharp, radiating to the back with a 5 out of 10 intensity at maximum worse with expiration with associated shortness of breath, nausea. He denied palpitations, focal weakness, lightheadedness, dizziness, fever, vomiting, recent travel, recent surgery, recent hospitalizatio n, recent trauma or fall, or recent immobility. He has a history of pulmonary embolism was diagnosed in 11/2023 and was given apixaban for 6 months. Patient reported that he was also evaluated by heme-onc after that diagnosis and workup was unremarkable. On admission: Vitals: 97.6 Fahrenheit, pulse rate 69, respiratory rate 14, blood pressure 131/92, O2 saturation 96% on room air Labs: WBC 15.9, hemoglobin 15.5, platelet count 318,000, D-dimer 3.05, bicarb 31, BUN 22, creatinine 0.8, troponin less than 0.0 12, magnesium 1.8, potassium 4.3. Imaging: Chest CTA showed scattered bilateral filling defects compatible with pulmonary emboli with no right heart strain. EKG showed sinus rhythm with a rate of 68, TN interval 157 MS, no ST-T changes, good R wave progression, QTc 379 MS. Chest x-ray showed no acute cardiopulmonary process. ED documentation reviewed. Initiated heparin drip. IV Solu-Medrol and high-dose aspirin given once in the ED. Review of systems: Pertinent positives and negatives as discussed in HPI, a complete review of systems was performed and all other systems are negative. Social history: Tobacco: History of smoking. Quit in 2018. Smoked 1 pack a day for 20 years Alcohol: Occasional alcohol intake Recreational drugs: Denied history of illicit or recreational drug use Travel: No recent travel Physical examination: Vital signs reviewed General: non toxic, no distress, appears at stated age, on room air Derm: no unusual rashes/lesions, warm Head: atraumatic, normocephalic, symmetric Eyes: EOMI, anicteric sclera, pupils equal round reactive to light ENT: Nose and ears atraumatic Neck: No cervical lymphadenopathy, trachea midline, supple Mouth: no lip lesion, mucus membranes moist Cardiovascular: S1S2 reg, no murmur Lungs: CTA bilateral, no rhonchi, no rales, no accessory muscle use Abdominal: soft, nondistended, nontender to palpation, no guarding Ext: muscle strength 5 out of 5 in all 4 extremities grossly, no gross muscle atrophy, no contractures, positive dorsalis pedis pulse bilateral, no edema, tenderness on upper calf on palpation Neuro: CN II-XI grossly intact, no gross focal neuro deficits Psych: Alert and oriented x 3, appropriate affect and mood Assessment/Plan: 54-year-old male with prior history of pulmonary embolism subm assive here for evaluation of chest pressure. CT angiography is positive for scattered pulmonary embolism with no evidence of heart strain. The patient is admitted with an anticipated less than than 2 midnight stay for evaluation of submassive pulmonary embolism Active: #. Pulmonary embolism, submassive with no evidence of heart strain -Chest CTA showed scattered bilateral filling defects compatible with pulmonary emboli with no right heart strain. -EKG showed sinus rhythm with a rate of 68, TN interval 157 MS, no ST-T changes, good R wave progression, QTc 379 MS. -D-dimer 3.05 -Heparin drip initiated in the ED. Heparin drip discontinued. Initiated Lovenox 40 mg subcu daily - Echocardiogram ordered - Left lower extremity venous Doppler ultrasound ordered - Patient has had recurrent pulmonary embolism with no provoking cause. Consult hematology for further evaluation - Pulmonology consulted by ED - Consider age appropriate cancer screening - Continue cardiac telemetry #. Leukocytosis, likely reactive secondary to steroids -Patient currently asymptomatic and afebrile. Infection not likely -Patient recently had a course of steroids. Given IV Solumedrol on admission. -Will monitor for now Chronic Conditions: #. Hypertension #. GERD #. Hyperlipidemia #. Depression -Resumed home losartan, Protonix, atorvastatin 10 mg, Lexapro 20 mg and hydrochlorothiazide 20 mg. DVT ppx: Lovenox 40 mg subcu daily CODE STATUS: Full Discussed with: Patient Anticipated discharge place: Home Noy Youngblood MD PGY-1 Internal Medicine Dictation was produced using [employer] dictation software. please excuse any grammatical, word or spelling errors. Past Medical History Past Medical History: GERD/Reflux, Hyperlipidemia, Hypertension History of Any Multi-Drug Resistant Organisms: None Reported Past Surgical History: Cholecystectomy Past Psychological History: Depression Smoking Status: Never smoker Past Alcohol Use History: Occasional Past Drug Use History: None Reported - Past Family History Mother Family Medical History: Cancer Father Family Medical History: Chest Pain / Angina Additional Family Medical History / Comment(s): Pt. states that father had stent put in. Medications and Allergies Home Medications Medication Instructions Recorded Confirmed Type Escitalopram [Lexapro] 20 mg PO DAILY 09/18/18 02/21/25 History Omeprazole 20 mg PO DAILY 09/18/18 02/21/25 History Simvastatin [Zocor] 20 mg PO DAILY 09/18/18 02/21/25 History Losartan Potassium [Cozaar] 50 mg PO DAILY 02/25/21 02/21/25 History hydroCHLOROthiazide [Hydrodiuril] 25 mg PO DAILY 03/09/21 02/21/25 History Aspirin EC [Ecotrin] 325 mg PO DAILY 02/21/25 02/21/25 History Fluticasone Nasal [place] [Flonase 1 spray EA NOSTRIL BID PRN 02/21/25 02/21/25 History Nasal [place]] Allergies Allergy/AdvReac Type Severity Reaction Status Date / Time Iodinated Contrast Media AdvReac "sneezed" Verified 02/21/25 17:36 [Iodinated Contrast- Oral and IV Dye] Physical Exam Vitals: Vital Signs Temp Pulse Pulse Resp BP Pulse Ox 02/21/25 17:25 64 02/21/25 17:20 64 18 131/93 97 02/21/25 15:52 24 02/21/25 15:36 97.6 F 69 14 131/92 96 Intake and Output 02/21/25 02/21/25 02/21/25 06:59 14:59 22:59 Other: Weight 132.449 kg Results CBC & Chem 7: 02/21/25 15:51 02/21/25 15:51 Labs: Abnormal Lab Results - Last 24 Hours (Table) 02/21/25 02/21/25 02/21/25 Range/Units 15:51 15:51 15:51 WBC 15.99 H (4.50-10.00) 10*3/uL Immature Gran # 0.26 H (0.00-0.04) 10*3/uL Neutrophils # 11.03 H (1.80-7.70) 10*3/uL Monocytes # 1.29 H (0.20-1.00) 10*3/uL Basophils # 0.15 H (0.00-0.10) 10*3/uL D-Dimer 3.05 H (<0.60) mg/L FEU Carbon Dioxide 31 H (22-30) mmol/L BUN 22 H (9-20) mg/dL Assessment and Plan Plan: I have seen and examined the patient today> I have discussed the patient with the resident and agree with the resident findings as documented in the resident's note. > Lungs clear bilaterally, Heart regular, ext no edema> Change Heparin to Lovenox weight based given patient's stability, agree with close monitoring, Pulm and Hematology have been contacted. The patient's questions and concerns were addressed
--- NOTE | 2025-02-22 02:37 | P.CNPUL ---
History of Present Illness Consult date: 02/22/25 Requesting physician: Susan Tijerina Reason for consult: pulmonary embolism Chief complaint: Shortness of breath, cough, hemoptysis History of present illness: Patient is a 54-year-old male with past medical history significant for hypertension, hyperlipidemia, GERD, obesity, obstructive sleep apnea, and pulmonary embolism. Patient previously diagnosed with pulmonary embolism November,; and was treated with Eliquis for 4 to 6 months. He is not currently on any anticoagulation. Sent in by his primary care provider yesterday for evaluation. Chief complaint persistent cough with occasional hemoptysis, shortness of breath, chest pressure. Associated left lower extremity pain from the knee down, which is now resolved. Workup in the emergency department including an elevated D-dimer which incited CT angio protocol which was a suboptimal evaluation due to poor bolus timing. There were scattered bilateral filling defects, primarily on the right upper and lower lobe segmental and subsegmental branches. No CT evidence of right-sided heart strain. No pleural effusions, pneumothoraces, focal infiltrates. Venous Doppler left lower extremity was unremarkable for DVT. Previously started on IV heparin in the ED, this was transitioned to subcutaneous low molecular weight heparin. CBC: WBC count 16, hemoglobin 15.5, platelets 318. CMP: Sodium 139, potassium 4.3, chloride 102, serum bicarb 31, BUN 22, creatinine 0.8, glucose 96. LFTs not elevated. Troponin less than 0.012. EKG: Normal sinus rhythm, rate 68 bpm, no acute ST segment elevations or T wave inversions. Patient currently being evaluated emergency department. On room air, not in any apparent respiratory distress. Blood pressures have remained normotensive. Not requiring any fluid bolus or vasopressors. Not tachypneic or tachycardic. Reports that he has been suffering from a persistent cough, with occasional blood-tinged sputum. Last treated with antibiotics and steroids on Friday by his primary care provider. Did have some brief improvement in his symptoms. Last night woke up to left- sided chest pressure/aching sensation with posterior radiation and difficulty breathing. Reports previous left lower extremity pain and inability to bear weight on this extremity. This is improved. Not significantly swollen or edematous. Denies any lightheadedness, syncopal events. Denies any recent tra vasyl. Denies any recent hospitalizations, trauma, surgeries. No known malignancies. Reportedly previously worked up by hematology oncology after his original PE. Current vital signs: Temperature 98 F, heart rate 69 bpm, blood pressure 129/80 mmHg, nontachypneic, SpO2 97% on bedside monitor. Review of Systems Constitutional: Denies chills, Denies fatigue, Denies fever, Denies poor appetite, Denies weakness, Denies weight gain, Denies weight loss Ears, nose, mouth and throat: Denies epistaxis, Denies headache, Denies nasal congestion, Denies nasal discharge, Denies post-nasal drip, Denies sinus pain, Denies sinus pressure, Denies sore throat Cardiovascular: Reports chest pain, Reports shortness of breath, Denies leg edema, Denies lightheadedness, Denies orthopnea, Denies palpitations, Denies syncope Respiratory: Reports cough, Reports dyspnea, Reports hemoptysis, Reports pain on inspiration, Reports respiratory infections, Denies excessive sputum Gastrointestinal: Denies abdominal pain, Denies change in bowel habits, Denies coffee ground emesis, Denies diarrhea, Denies hematemesis, Denies hematochezia, Denies melena, Denies nausea, Denies vomiting Genitourinary: Denies dysuria, Denies hematuria Musculoskeletal: Denies limitation of motion Integumentary: Denies rash, Denies unusual bruising Neurological: Denies head injury, Denies headaches, Denies seizures, Denies syncope Psychiatric: Denies anxiety, Denies depression Past Medical History Past Medical History: GERD/Reflux, Hyperlipidemia, Hypertension History of Any Multi-Drug Resistant Organisms: None Reported Past Surgical History: Cholecystectomy Past Psychological History: Depression Smoking Status: Never smoker Past Alcohol Use History: Occasional Past Drug Use History: None Reported - Past Family History Mother Family Medical History: Cancer Father Family Medical History: Chest Pain / Angina Additional Family Medical History / Comment(s): Pt. states that father had stent put in. Medications and Allergies Home Medications Medication Instructions Recorded Confirmed Type Escitalopram [Lexapro] 20 mg PO DAILY 09/18/18 02/21/25 History Omeprazole 20 mg PO DAILY 09/18/18 02/21/25 History Simvastatin [Zocor] 20 mg PO DAILY 09/18/18 02/21/25 History Losartan Potassium [Cozaar] 50 mg PO DAILY 02/25/21 02/21/25 History hydroCHLOROthiazide [Hydrodiuril] 25 mg PO DAILY 03/09/21 02/21/25 History Aspirin EC [Ecotrin] 325 mg PO DAILY 02/21/25 02/21/25 History Fluticasone Nasal [place] [Flonase 1 spray EA NOSTRIL BID PRN 02/21/25 02/21/25 History Nasal [place]] Allergies Allergy/AdvReac Type Severity Reaction Status Date / Time Iodinated Contrast Media AdvReac "sneezed" Verified 02/21/25 17:36 [Iodinated Contrast- Oral and IV Dye] Physical Exam Vitals: Vital Signs Temp Pulse Pulse Resp BP Pulse Ox 02/21/25 23:09 98 F 69 16 129/80 97 02/21/25 20:01 74 18 137/91 95 02/21/25 17:25 64 02/21/25 17:20 64 18 131/93 97 02/21/25 15:52 24 02/21/25 15:36 97.6 F 69 14 131/92 96 Intake and Output 02/21/25 02/21/25 02/22/25 14:59 22:59 06:59 Other: Weight 132.449 kg GENERAL EXAM: Alert, 54-year-old obese male, comfortable in no apparent distress. HEAD: Normocephalic and atraumatic EYES: Normal reaction of pupils, equal size. NOSE: Clear with pink turbinates. THROAT: No erythema or exudates. NECK: No masses, no JVD. CHEST: No chest wall deformity. LUNGS: Equal air entry with no crackles, wheeze, rhonchi or dullness. On room air. No conversational dyspnea or accessory muscle use.. CVS: S1 and S2 normal with no audible murmur, regular rhythm. No extra heart sounds ABDOMEN: No hepatosplenomegaly, active bowel sounds, no guarding or rigidity. SPINE: No scoliosis or deformity SKIN: No rashes CENTRAL NERVOUS SYSTEM: No focal deficits, tone is normal in all 4 extremities. EXTREMITIES: There is no peripheral edema, clubbing, or cyanosis. Peripheral pulses are intact. Results - Laboratory Findings CBC and BMP: 02/22/25 06:49 02/22/25 06:49 PT/INR, D-dimer PT 10.7 sec (10.0-12.5) 02/21/25 15:51 INR 1.0 (<1.2) 02/21/25 15:51 D-Dimer 3.05 mg/L FEU (<0.60) H 02/21/25 15:51 Abnormal lab findings: Abnormal Labs 02/21/25 02/21/25 02/21/25 15:51 15:51 15:51 WBC 15.99 H Immature Gran # 0.26 H Neutrophils # 11.03 H Monocytes # 1.29 H Basophils # 0.15 H D-Dimer 3.05 H Carbon Dioxide 31 H BUN 22 H - Diagnostic Findings Chest x-ray: image reviewed CT scan - chest: image reviewed Assessment and Plan Assessment: Acute segmental and subsegmental bilateral pulmonary emboli, Chest CT angio was technically a suboptimal evaluation due to poor bolus timing. There were s cattered bilateral filling defects, primarily on the right upper and lower lobe segmental and subsegmental branches. No CT evidence of right-sided heart strain. Acute dyspnea, secondary to above Acute leukocytosis likely reactive to steroids or above History of pulmonary embolism, previously treated with 4 to 6 months of Eliquis Hypertension History of hyperlipidemia History of GERD Obesity, with a BMI of 37.5 kg/m History of obstructive sleep apnea Plan: Patient currently on room air Hemodynamics have remained stable CT evidence of right-sided heart strain Follow-up echocardiogram is ordered Bolused with IV heparin in Ed and previously transitioned to subcu low molecular weight heparin No obvious identified provoking factors Hematology/oncology consulted Will likely be transition back to Eliquis indefinitely Case to be discussed with Dr. Burns I have personally seen and examined the patient, performed the documentation and the assessment and plan as written. Number of minutes spent on the visit:20 The patient is being seen in joint evaluation along with the nurse practitioner. This evaluation was done more than 30 minutes. The patient is known to have a previous history of pulmonary embolism back in November 2024. The patient was seen by hematology and was taken off anticoagulants and is presenting with symptoms of chest pain and shortness of breath. He also had some limited hemoptysis. A CTA of the chest was repeated in the emergency department and the patient has filling defects, scattered bilaterally compatible with pulmonary embolism. There are filling defects in the right lower lobe pulmonary artery segments and filling defect in the right upper lobe and the right middle lobe. No significant mediastinal lymphadenopathy. Doppler of the lower extremity was negative. D-dimer was elevated at 3.05. The patient was started on therapeutic dose of Lovenox. He is currently on room air oxygen. Echocardiogram was done on 02/22/2025 and the patient has preserved LV function with an EF of around 55 to 60%. Mild RV dilatation, normal RV global function with mild PA pressures estimated to be at 35 mmHg. My plan is to transition this patient to anticoagulation with Eliquis. Will discuss the case with hematology oncology. This is most likely a recurrent event/ thromboembolic disease, unprovoked Time with Patient: Greater than 30
[2025-02-22 07:10] LABS: Basophils # (A) 0.06 10*3/uL (0.00-0.10); Basophils % (A) 0.3 %; Eosinophils # (A) 0.01 10*3/uL (0.04-0.35); HCT 45.1 % (39.6-50.0); HGB 15.7 g/dL (13.0-17.0); Lymphocytes # (A) 1.41 10*3/uL (0.90-5.00); Lymphocytes % (A) 6.7 %; MCH 30.4 pg (27.0-32.0); MCHC 34.8 g/dL (32.0-37.0); MCV 87.4 fL (80.0-97.0); Mean Platelet Volume 10.2 fL (9.5-12.2); Monocytes # (A) 0.85 10*3/uL (0.20-1.00); Monocytes % (A) 4.1 %; Neutrophils # (A) 18.44 10*3/uL (1.80-7.70); Platelet Count 317 10*3/uL (140-440); RBC 5.16 10*6/uL (4.40-5.60); RDW 12.6 % (11.5-14.5); WBC 20.96 10*3/uL (4.50-10.00)
[2025-02-22 08:02] LABS: ALT 25 U/L (4-49); AST 20 U/L (17-59); African American GFR (CKD) >90 (>60 ml/min/1.73 sqM); Albumin 3.9 g/dL (3.5-5.0); Alkaline Phosphatase 56 U/L (38-126); Anion Gap 10 mmol/L; Blood Urea Nitrogen 22 mg/dL (9-20); Calcium 9.9 mg/dL (8.4-10.2); Carbon Dioxide 27 mmol/L (22-30); Chloride 103 mmol/L (98-107); Glucose 122 mg/dL (74-99); Non-African American GFR(CKD) >90 (>60 ml/min/1.73 sqM); Potassium 4.6 mmol/L (3.5-5.1); Sodium 140 mmol/L (137-145); Total Bilirubin 0.9 mg/dL (0.2-1.3); Total Protein 6.6 g/dL (6.3-8.2)
[2025-02-22] MEDS: PANTOPRAZOLE 40 MG TABLET PO SCH (09:02)
[2025-02-22] MEDS: ATORVASTATIN 10 MG TAB PO SCH (09:03)
[2025-02-22] MEDS: ESCITALOPRAM 20 MG TAB PO SCH (09:03)
[2025-02-22] MEDS: hydroCHLOROthiazide 25 MG TAB PO SCH (09:03)
[2025-02-22] MEDS: LOSARTAN 50 MG TAB PO SCH (09:04)
[2025-02-22] MEDS: ENOXAPARIN 60 MG/0.6 ML SYRINGE SQ SCH (09:05)
--- NOTE | 2025-02-22 11:54 | CA ---
Transthoracic Echo Report Name: Ambrosio Flowers Age: 54 Gender: M : 1970 Exam Date: 02/22/2025 08:30 Exam Location: [facility] Ht (in): 74 Wt (lb): 292 Ordering Physician: Noy Youngblood MD Attending/Referring Phys: [employer]enet Developer Day Freeman RDCS Procedure CPT: Indications: Pulmonary Embolism Cardiac Hx: Technical Quality: Fair Contrast 1: Total Dose (mL): Contrast 2: Total Dose (mL): MEASUREMENTS (Male / Female) Normal Values 2D ECHO LV Diastolic Diameter PLAX 5.3 cm 4.2 - 5.9 / 3.9 - 5.3 cm LV Systolic Diameter PLAX 3.7 cm IVS Diastolic Thickness 1.3 cm 0.6 - 1.0 / 0.6 - 0.9 cm LVPW Diastolic Thickness 1.4 cm 0.6 - 1.0 / 0.6 - 0.9 cm LV Relative Wall Thickness 0.5 RV Internal Dim ED PLAX 3.6 cm LVOT Diameter 2.5 cm LV Diastolic Volume MOD BP 159.6 cm??? 67 - 155 / 56 - 104 cm??? LV Systolic Volume MOD BP 67.2 cm??? 22 - 58 / 19 - 49 cm??? LV Ejection Fraction MOD BP 57.9 % >= 55 % LV Cardiac Index MOD BP 2172.5 cm???/min???m??? LV Diastolic Volume MOD 4C 181.4 cm??? LV Systolic Volume MOD 4C 73.7 cm??? LV Ejection Fraction MOD 4C 59.4 % LV Cardiac Index MOD 4C 2534.3 cm???/min???m??? LV Diastolic Length 4C 9.0 cm LV Systolic Length 4C 7.4 cm LV Diastolic Volume MOD 2C 140.8 cm??? LV Systolic Volume MOD 2C 61.2 cm??? LV Ejection Fraction MOD 2C 56.6 % LV Cardiac Index MOD 2C 1873.8 cm???/min???m??? LV Diastolic Length 2C 9.0 cm LV Systolic Length 2C 7.3 cm LA Volume 90.3 cm??? 18 - 58 / 22 - 52 cm??? LA Volume Index 33.7 cm???/m??? 16 - 28 cm???/m??? Ascending Aorta Diameter 3.7 cm DOPPLER AV Peak Velocity 151.6 cm/s AV Peak Gradient 9.2 mmHg AV Mean Velocity 105.4 cm/s AV Mean Gradient 4.9 mmHg AV Velocity Time Integral 31.6 cm LVOT Peak Velocity 124.9 cm/s LVOT Peak Gradient 6.2 mmHg LVOT Velocity Time Integral 27.7 cm LVOT Stroke Volume 139.1 cm??? LVOT Stroke Volume Index 54.5 ml/m??? LVOT Cardiac Index 3273.9 cm???/min???m??? AV Area Cont Eq vti 4.4 cm??? AV Area Cont Eq pk 4.1 cm??? MV Area PHT 3.6 cm??? Mitral E Point Velocity 52.1 cm/s Mitral A Point Velocity 55.9 cm/s Mitral E to A Ratio 0.9 MV Deceleration Time 213.6 ms TR Peak Velocity 275.5 cm/s TR Peak Gradient 30.4 mmHg Right Atrial Pressure 5.0 mmHg Pulmonary Artery Systolic Pressu 35.4 mmHg Right Ventricular Systolic Press 35.4 mmHg PV Peak Velocity 103.4 cm/s PV Peak Gradient 4.3 mmHg FINDINGS Left Ventricle Left ventricular ejection fraction is estimated at 55-60 %. Normal left ventricular systolic function with no obvious regional wall motion abnormalities. Left ventricular cavity size normal. Mildly increased left ventricular wall thickness. Right Ventricle Mild right ventricular dilatation. Normal right ventricular global systolic function. Mild pulmonary hypertension. Right Atrium Moderate right atrial dilatation. Left Atrium Mildly increased left atrial volume. Mildly increased left atrial area. Mitral Valve Structurally normal mitral valve. No evidence for mitral valve prolapse. No mitral stenosis. Mild mitral regurgitation. Aortic Valve Trileaflet aortic valve. No aortic valve stenosis or regurgitation. Tricuspid Valve Structurally normal tricuspid valve. No tricuspid stenosis. Mild tricuspid regurgitation. Pulmonic Valve Structurally normal pulmonic valve. No pulmonic stenosis. No pulmonic regurgitation. Pericardium No pericardial effusion. Aorta Normal size aortic root and proximal ascending aorta. CONCLUSIONS 1. Normal left ventricular size and systolic function 2. Borderline dilatation of the right ventricle with preserved systolic function and mild pulmonary hypertension 3. Mild mitral and tricuspid regurgitation Previewed by: Dr. Alber Mancilla MD (Electronically Signed) Final Date: 22 February 2025 11:54
--- NOTE | 2025-02-22 14:15 | P.PN ---
Subjective Progress Note Date: 02/22/25 Hospital course: Patient is a very pleasant 54-year-old male with a past medical history of hypertension, hyperlipidemia, GERD, depression, and previous PE status post COVID infection no longer on anticoagulation. He presented to the hospital on with a chief complaint of shortness of breath. Patient reports upper respiratory infection approximately 3 weeks ago with that he does not feel that he recovered from completely. Patient denies being tested for COVID during this time. Upon arrival to our facility, patient underwent evaluation in the emerge ncy department. Vital signs upon arrival show blood pressure 131/92, heart rate 69, respiratory rate 14, temp 97.6 F, and SpO2 of 96% on room air. EKG completed showing normal sinus rhythm at 68 bpm with no significant T wave or ST abnormality showing no signs of acute ischemia upon personal review and interpretation. Chest x-ray completed negative for acute cardiopulmonary process. Labs completed and reviewed. CBC showing leukocytosis with WBC count of 15.99. Coagulation profile showing an elevated D-dimer of 3.05. BMP showing hypercarbia with bicarb of 31 and mild prerenal azotemia with BUN of 22. Blood glucose was 96. Magnesium 1.8. Liver profile unremarkable. And troponin was negative at less than 0.012. CTA chest completed showing scattered bilateral filling defects compatible with pulmonary emboli with no evidence of right heart strain. Left lower extremity Doppler was negative for DVT. Patient was admitted under our services with consultation to pulmonology and hematology. Physical exam: Vital signs reviewed and stable. General: Nontoxic, no distress and appears stated age. Derm: Skin warm and dry, normal coloration for ethnicity. Head: Atraumatic, normocephalic and symmetric. Eyes: EOM's intact, no lid lag, and anicteric sclera Mouth: no lip lesions, mucus membranes moist Cardiovascular: regular rate and rhythm with normal S1S2, no murmur, positive posterior tibial pulses bilaterally, and cap refill < 2 seconds. Lungs: Respirations even, regular, and unlabored on room air. Lungs CTA bilaterally, no rhonchi, no rales, no wheezing, and no accessory muscle usage. Abdominal: soft, nontender to palpation, no guarding, no appreciable organomegaly Ext: ROM intact. No gross muscle atrophy, no edema, no contractures Neuro: Speech clear, face symmetrical and CN II-XII grossly intact with no noted focal neuro deficits Psych: Alert and oriented to person, place, time, and situation. Appropriate and pleasant affect. Assessment and Plan of Care: Pulmonary embolism, submassive with no evidence of right heart strain Leukocytosis, likely secondary to above History of previous PE, November 2023 after COVID infection -Pulmonology following, reviewed documentation in chart. -Hematology consulted, appreciate recommendations. -Telemetry monitoring -Continue therapeutic Lovenox 60 mg twice daily -Echocardiogram Hypertension -Monitor vital signs and continue daily medication regimen with losartan 50 mg daily Hyperlipidemia -Atorvastatin 10 mg daily. Heart healthy diet. GERD -Continue Protonix 40 mg daily. Depression -Continue Lexapro 20 mg daily. Data and imaging reviewed: -CTA chest completed showing scattered bilateral filling defects compatible with pulmonary emboli with no evidence of right heart strain. -Left lower extremity Doppler was negative for DVT. - Vital signs reviewed. Blood pressure 121/86, heart rate 64, respiratory rate 18, temp 97.8 F, and SpO2 of 94% on room air. - Morning labs reviewed. CBC showing leukocytosis with WBC count of 20.96. BMP unremarkable with exception of mild prerenal azotemia with BUN of 22. Blood glucose 122. Liver profile unremarkable. CODE STATUS: Full code DVT prophylaxis: Lovenox Anticipated discharge date: Pending clinical course, likely within the next [address]: Home Patient was seen independently by Nurse Pracitioner. This document was prepared using [employer] dictation software. Please allow for errors in trace clerk, while rare they do occur. Oz Kumari NP rendered care for this patient independently, reviewed the findings and plan as documented in the note above and agree with plan. I did not physically speak with or examine the patient on this date. Objective - Vital Signs Vital signs: Vital Signs Temp 97.8 F 02/22/25 07:29 Pulse 60 02/22/25 07:29 Resp 18 02/22/25 07:29 BP 124/84 02/22/25 07:29 Pulse Ox 93 L 02/22/25 07:29 FiO2 Intake & Output 02/21/25 02/22/25 02/22/25 18:59 06:59 18:59 Weight 132.449 kg - Labs CBC & Chem 7: 02/22/25 06:49 02/22/25 06:49 Labs: Abnormal Lab Results - Last 24 Hours (Table) 02/21/25 02/21/25 02/21/25 Range/Units 15:51 15:51 15:51 WBC 15.99 H (4.50-10.00) 10*3/uL Immature Gran # 0.26 H (0.00-0.04) 10*3/uL Neutrophils # 11.03 H (1.80-7.70) 10*3/uL Monocytes # 1.29 H (0.20-1.00) 10*3/uL Eosinophils # (0.04-0.35) 10*3/uL Basophils # 0.15 H (0.00-0.10) 10*3/uL D-Dimer 3.05 H (<0.60) mg/L FEU Carbon Dioxide 31 H (22-30) mmol/L BUN 22 H (9-20) mg/dL Glucose (74-99) mg/dL 02/22/25 02/22/25 Range/Units 06:49 06:49 WBC 20.96 H (4.50-10.00) 10*3/uL Immature Gran # 0.19 H (0.00-0.04) 10*3/uL Neutrophils # 18.44 H (1.80-7.70) 10*3/uL Monocytes # (0.20-1.00) 10*3/uL Eosinophils # 0.01 L (0.04-0.35) 10*3/uL Basophils # (0.00-0.10) 10*3/uL D-Dimer (<0.60) mg/L FEU Carbon Dioxide (22-30) mmol/L BUN 22 H (9-20) mg/dL Glucose 122 H (74-99) mg/dL
[2025-02-22 18:00] VITALS: RESP 16
--- NOTE | 2025-02-22 20:06 | P.CONS ---
History of Present Illness - Reason for Consult Consult date: 02/22/25 recurrent PE Requesting physician: Noy Youngblood - Chief Complaint SOB - History of Present Illness Mr. Flowers is a 54-year-old gentleman with a past medical history significant for hypertension and hyperlipidemia and PE who followed up with Dr. Jamal Butler last year for PE. He had presented to [facility] ED on 11/06/2023 with increased sternal chest discomfort with palpitations. He noted having pleuritic chest pain with dyspnea as well. Lab revealed elevated D-dimer at 0.88. CTA of the chest on 11/06/2023 noted suboptimal study, but at least small degree of pulmonary embolism of the right lower lung with no evidence for right ventricular strain. He was started on therapeutic Eliquis and has so far been tolerating this well without any bruising or bleeding diathesis. Prior to diagnosis of pulmonary embolism, he noted suresh COVID-19 approximately 2 weeks prior with URI symptoms and anosmia along with mild dyspnea. He did not require hospitalization. He did have a trip to [facility] after suresh COVID-19, for which he drove 2 hours to and from home. He otherwise denied any current cigarette smoking, prolonged traveling, or testosterone supplementation. He denies any constitutional symptoms. He denies any known family history of VTE. He smoked 1 pack a day for at least 30 years and quit smoking in 2014. Venous Doppler of the lower extremities bilaterally along with echocardiogram on 11/25/[address] Burns of pulmonology revealed no DVT in the legs and EF of 55 to 50% with no right heart strain. It did note severe right ventricular dilatation. This was felt to be a provoked PE, and patient was treated with Eliquis for 3 months. 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 Patient tolerated AC well, and completed recommended 3 months of treatment Patient presents the emergency room with shortness of breath. Patient reports for last couple weeks he was recently treated for URI with Medrol Dosepak and due to persisting symptoms was then treated with additional Medrol Dosepak and antibiotics and started to see improvement. However patient was experiencing cough with blood-tinged sputum and progressing shortness of breath at which time he presented to his PCP who instructed him to come to the ER for further evaluation. Upon admit D-dimer is elevated at 3.05, and CTA chest was subsequently obtained showing scattered bilateral filling defects compatible with pulmonary emboli with no evidence of right heart strain. He also reported left lower extremity pain and left lower extremity Doppler was negative for DVT. Patient was started on heparin drip and was transition to Lovenox. Review of Systems 10 point ROS is negative except as stated in the HPI Past Medical History Past Medical History: GERD/Reflux, Hyperlipidemia, Hypertension History of Any Multi-Drug Resistant Organisms: None Reported Past Surgical History: Cholecystectomy Past Psychological History: Depression Smoking Status: Never smoker Past Alcohol Use History: Occasional Past Drug Use History: None Reported - Past Family History Mother Family Medical History: Cancer Father Family Medical History: Chest Pain / Angina Additional Family Medical History / Comment(s): Pt. states that father had stent put in. Medications and Allergies Home Medications Medication Instructions Recorded Confirmed Type Escitalopram [Lexapro] 20 mg PO DAILY 09/18/18 02/21/25 History Omeprazole 20 mg PO DAILY 09/18/18 02/21/25 History Simvastatin [Zocor] 20 mg PO DAILY 09/18/18 02/21/25 History Losartan Potassium [Cozaar] 50 mg PO DAILY 02/25/21 02/21/25 History hydroCHLOROthiazide [Hydrodiuril] 25 mg PO DAILY 03/09/21 02/21/25 History Aspirin EC [Ecotrin] 325 mg PO DAILY 02/21/25 02/21/25 History Fluticasone Nasal [place] [Flonase 1 spray EA NOSTRIL BID PRN 02/21/25 02/21/25 History Nasal [place]] Allergies Allergy/AdvReac Type Severity Reaction Status Date / Time Iodinated Contrast Media AdvReac "sneezed" Verified 02/21/25 17:36 [Iodinated Contrast- Oral and IV Dye] Physical Exam Vitals: Vital Signs Temp Pulse Pulse Resp BP Pulse Ox 02/22/25 09:01 64 18 121/86 94 L 02/22/25 07:29 97.8 F 60 18 124/84 93 L 02/22/25 06:07 62 18 117/81 97 02/22/25 02:10 64 16 111/65 95 02/21/25 23:09 98 F 69 16 129/80 97 02/21/25 20:01 74 18 137/91 95 02/21/25 17:25 64 02/21/25 17:20 64 18 131/93 97 02/21/25 15:52 24 02/21/25 15:36 97.6 F 69 14 131/92 96 Intake and Output 02/21/25 02/22/25 02/22/25 22:59 06:59 14:59 Other: Weight 132.449 kg - Constitutional General appearance: no acute distress - EENT Eyes: anicteric sclerae, EOMI ENT: hearing grossly normal - Respiratory breathing is even and unlabored - Cardiovascular skin warm and dry leg Peripheral Edema: bilateral: None - Gastrointestinal General gastrointestinal: soft, no tenderness - Integumentary Integumentary: no cyanotic - Neurologic Neurologic: CNII-XII intact - Musculoskeletal Musculoskeletal: generalized weakness - Psychiatric Psychiatric: A&O x's 3 Results CBC & Chem 7: 02/22/25 06:49 02/22/25 06:49 Labs: Abnormal Lab Results - Last 24 Hours (Table) 02/21/25 02/21/25 02/21/25 Range/Units 15:51 15:51 15:51 WBC 15.99 H (4.50-10.00) 10*3/uL Immature Gran # 0.26 H (0.00-0.04) 10*3/uL Neutrophils # 11.03 H (1.80-7.70) 10*3/uL Monocytes # 1.29 H (0.20-1.00) 10*3/uL Eosinophils # (0.04-0.35) 10*3/uL Basophils # 0.15 H (0.00-0.10) 10*3/uL D-Dimer 3.05 H (<0.60) mg/L FEU Carbon Dioxide 31 H (22-30) mmol/L BUN 22 H (9-20) mg/dL Glucose (74-99) mg/dL 02/22/25 02/22/25 Range/Units 06:49 06:49 WBC 20.96 H (4.50-10.00) 10*3/uL Immature Gran # 0.19 H (0.00-0.04) 10*3/uL Neutrophils # 18.44 H (1.80-7.70) 10*3/uL Monocytes # (0.20-1.00) 10*3/uL Eosinophils # 0.01 L (0.04-0.35) 10*3/uL Basophils # (0.00-0.10) 10*3/uL D-Dimer (<0.60) mg/L FEU Carbon Dioxide (22-30) mmol/L BUN 22 H (9-20) mg/dL Glucose 122 H (74-99) mg/dL CT scan - chest: report reviewed Venous US: report reviewed Assessment and Plan (1) Pulmonary embolism Current Visit: Yes Status: Acute Priority: High Code(s): I26.99 - OTHER PULMONARY EMBOLISM WITHOUT ACUTE COR PULMONALE SNOMED Code(s): 29747159 Plan: Recurrent PE: Presented with SOB after being treated for URI -History as dictated in the HPI. Previously dx with provoked PE, treated with 3 months of Eliquis -Upon admit D-dimer is elevated at 3.05, and CTA chest was subsequently obtained showing scattered bilateral filling defects compatible with pulmonary emboli with no evidence of right heart strain. He also reported left lower extremity pain and left lower extremity Doppler was negative for DVT. -Patient was started on heparin drip and was transitioned to Lovenox. -This would be considered unprovoked PE. Due to recurrent PE and unprovoked VTE would recommend life long anticoagulation. -Will transition patient to Eliquis -Clinic f/u will be scheduled upon discharge for further management Discussed findings and recommendations with pt, he was agreeable to the same
[2025-02-22] MEDS: Apixaban Initiation Dose--VTE 5 MG TAB PO SCH (20:27)
[2025-02-23 08:53] VITALS: BP 112/76; PULSE 62; TEMP 98.3
--- NOTE | 2025-02-23 10:23 | P.DS ---
Providers Date of admission: 02/21/25 19:37 Expected date of discharge: 02/23/25 Attending physician: Radha Nino MD Consults: 02/21/25 18:22 Consult Physician Routine Consulting Provider: Tate Burns Consult Reason/Comments: r lobe PE Do you want consulting provider notified?: Yes, Notify in am 02/21/25 20:05 Consult Physician Routine Consulting Provider: Edin Bolanos Consult Reason/Comments: recurrent pulmonary embolism Do you want consulting provider notified?: Yes Primary care physician: David Cortez Hospital Course: Discharge Diagnosis: Unprovoked Pulmonary embolism, submassive with no evidence of right heart strain. This is a recurrent unprovoked PE. CTA chest completed showing scattered bilateral filling defects compatible with pulmonary emboli with no evidence of right heart strain. Left lower extremity Doppler was negative for DVT. Patient initially started on heparin infusion and then transition to Lovenox and lastly placed on oral Eliquis. Echocardiogram was completed showing a preserved EF of 55 to 60% with borderline dilation of the right ventricle with preserved systolic function and mild pulmonary hypertension with mild mitral and tricuspid regurgitation. Patient was cleared by pulmonary perspective for discharge and oral DOAC. Discussed in detail with sanitary inspector patient to remain on lifelong anticoagulation. Discussed lifelong anticoagulation with patient and family at bedside. He is maintaining oxygen saturations on room air at 99%. Patient medically optimized for discharge and prescription sent for Eliquis. Discussed with patient that we are discontinuing his aspirin 325 mg daily previously prescribed for his peripheral vascular disease and will place patient only on 81 mg daily. Patient instructed to avoid additional NSAIDs with use of anticoagulation. Patient to follow-up outpatient with PCP in 1 to 2 days, sanitary inspector in 2 weeks, and foundry engineer in 1 week Leukocytosis, reactive likely secondary to above and initial administration of IV steroids History of previous PE, November 2023 after COVID infection Hypertension. Monitor vital signs and continue daily medication regimen with losartan 50 mg daily Hyperlipidemia. Continue home medication regimen with atorvastatin 10 mg daily. Heart healthy diet. GERD. Continue Protonix 40 mg daily. Depression. Continue Lexapro 20 mg daily. Hospital course: Patient is a very pleasant 54-year-old male with a past medical history of hypertension, hyperlipidemia, GERD, depression, and previous PE status post COVID infection no longer on anticoagulation. He presented to the hospital on with a chief complaint of shortness of breath. Patient reports upper respiratory infection approximately 3 weeks ago with that he does not feel that he recovered from completely. Patient denies being tested for COVID during this time. Upon arrival to our facility, patient underwent evaluation in the emergency department. Vital signs upon arrival show blood pressure 131/92, heart rate 69, respiratory rate 14, temp 97.6 F, and SpO2 of 96% on room air. EKG completed showing normal sinus rhythm at 68 bpm with no significant T wave or ST abnormality showing no signs of acute ischemia upon personal review and interpretation. Chest x-ray completed negative for acute cardiopulmonary process. Labs completed and reviewed. CBC showing leukocytosis with WBC count of 15.99. Coagulation profile showing an elevated D-dimer of 3.05. BMP showing hypercarbia with bicarb of 31 and mild prerenal azotemia with BUN of 22. Blood glucose was 96. Magnesium 1.8. Liver profile unremarkable. And troponin was negative at less than 0.012. CTA chest completed showing scattered bilateral filling defects compatible with pulmonary emboli with no evidence of right heart strain. Left lower extremity Doppler was negative for DVT. Patient was ad mitted under our services with consultation to pulmonology and hematology. Patient initially started on heparin infusion and then transition to Lovenox and lastly placed on oral Eliquis. Echocardiogram was completed showing a preserved EF of 55 to 60% with borderline dilation of the right ventricle with preserved systolic function and mild pulmonary hypertension with mild mitral and tricuspid regurgitation. Patient was cleared by pulmonary perspective for discharge and oral DOAC. Discussed in detail with sanitary inspector patient to remain on lifelong anticoagulation. Discussed lifelong anticoagulation with patient and family at bedside. Patient reports feeling "great" today. He reports currently feeling free from any shortness of breath at this time. He is maintaining oxygen saturations on room air at 99%. Patient medically optimized for discharge and prescription sent for Eliquis. Discussed with patient that we are discontinuing his aspirin 325 mg daily previously prescribed for his peripheral vascular disease and will place patient only on 81 mg daily. Patient instructed to avoid additional NSAIDs with use of anticoagulation. Patient to follow-up outpatient with PCP in 1 to 2 days, sanitary inspector in 2 weeks, and foundry engineer in 1 week Physical exam: Vital signs reviewed and stable. General: Nontoxic, no distress and appears stated age. Derm: Skin warm and dry, normal coloration for ethnicity. Head: Atraumatic, normocephalic and symmetric. Eyes: EOM's intact, no lid lag, and anicteric sclera Mouth: no lip lesions, mucus membranes moist Cardiovascular: regular rate and rhythm with normal S1S2, no murmur, positive posterior tibial pulses bilaterally, and cap refill < 2 seconds. Lungs: Respirations even, regular, and unlabored on room air. Lungs CTA bilaterally, no rhonchi, no rales, no wheezing, and no accessory muscle usage. Abdominal: soft, nontender to palpation, no guarding, no appreciable organomegaly Ext: ROM intact. No gross muscle atrophy, no edema, no contractures Neuro: Speech clear, face symmetrical and CN II-XII grossly intact with no noted focal neuro deficits Psych: Alert and oriented to person, place, time, and situation. Appropriate and pleasant affect. A total of 34 minutes of time were spent preparing this complex discharge summary. Pt was discharged on 02/23/25 at 9:43 AM Patient was seen independently by Nurse Practitioner. This document was prepared using Flexion dictation software. Please allow for errors in ladle puller while rare they do occur. Oz Kumari NP rendered care for this patient independently, reviewed the findings and plan as documented in the note above. I did not physically speak with or examine the patient on this date. . Patient Condition at Discharge: Stable Plan - Discharge Summary Discharge Rx Participant: No New Discharge Prescriptions: New Aspirin 81 mg PO DAILY 30 Days #30 tab Apixaban [Eliquis Starter Pack (for VTE)] 5 - 10 mg PO DIRECTED 30 Days #1 each Continue Omeprazole 20 mg PO DAILY Escitalopram [Lexapro] 20 mg PO DAILY Simvastatin [Zocor] 20 mg PO DAILY hydroCHLOROthiazide [Hydrodiuril] 25 mg PO DAILY Losartan Potassium [Cozaar] 50 mg PO DAILY Fluticasone Nasal [place] [Flonase Nasal [place]] 1 spray EA NOSTRIL BID PRN PRN Reason: Congestion Discontinued Aspirin EC [Ecotrin] 325 mg PO DAILY Discharge Medication List Escitalopram [Lexapro] 20 mg PO DAILY 09/18/18 [History] Omeprazole 20 mg PO DAILY 09/18/18 [History] Simvastatin [Zocor] 20 mg PO DAILY 09/18/18 [History] Losartan Potassium [Cozaar] 50 mg PO DAILY 02/25/21 [History] hydroCHLOROthiazide [Hydrodiuril] 25 mg PO DAILY 03/09/21 [History] Fluticasone Nasal [place] [Flonase Nasal [place]] 1 spray EA NOSTRIL BID PRN 02/21/25 [History] Apixaban [Eliquis Starter Pack (for VTE)] 5 - 10 mg PO DIRECTED 30 Days #1 each 02/23/25 [Rx] Aspirin 81 mg PO DAILY 30 Days #30 tab 02/23/25 [Rx] Follow up Appointment(s)/Referral(s): Yuly Butler MD [STAFF PHYSICIAN] - 2 Weeks David Cortez DO [Primary Care Provider] - 1-2 days Tate Burns MD [STAFF PHYSICIAN] - 1 Week Activity/Diet/Wound Care/Special Instructions: Activity: As tolerated. Take breaks as needed. Diet: Heart healthy and carb consistent diet. Special Instructions: Take all of your medications as directed and remember to keep all of your doctor's appointments and follow-up as needed You are also being discharged home on a blood thinner, Eliquis. This is very important to take daily as directed unless otherwise advised by your Consumer Experience Consultant Dr. Yuly Butler. Being that you are being placed on a blood thinner it is very important to watch for any signs of bleeding and notify your doctor immediately if you notice any bleeding. It is also important as we discussed to remove any trip hazards such as rugs or loose extension cords from your home to prevent unnecessary falls and if you do experience a fall or head injury, it is extremely important to be evaluated by a medical provider immediately to ensure no internal bleeding. Due to being discharged on a blood thinner, we have decreased your daily dose of aspirin from 325 mg daily down to 81 mg daily. Do not take any additional aspirin, ibuprofen, Motrin, Advil, naproxen, or any other NSAIDs while on the anticoagulant as doing so will increase your risk of bleeding. Thank you for allowing us to participate in your care, it was truly a pleasure having you for our patient!!! . Discharge Disposition: HOME SELF-CARE
--- NOTE | 2025-02-23 17:18 | P.PN ---
Subjective Progress Note Date: 02/23/25 Patient is a 54-year-old male with past medical history significant for hypertension, hyperlipidemia, GERD, obesity, obstructive sleep apnea, and pulmonary embolism. Patient previously diagnosed with pulmonary embolism November,; and was treated with Eliquis for 4 to 6 months. He is not currently on any anticoagulation. Sent in by his primary care provider yesterday for evaluation. Chief complaint persistent cough with occasional hemoptysis, shortness of breath, chest pressure. Associated left lower extremity pain from the knee down, which is now resolved. Workup in the emergency department including an elevated D-dimer which incited CT angio protocol which was a suboptimal evaluation due to poor bolus timing. There were scattered bilateral filling defects, primarily on the right upper and lower lobe segmental and subsegmental branches. No CT evidence of right-sided heart strain. No pleural effusions, pneumothoraces, focal infiltrates. Venous Doppler left lower extremity was unremarkable for DVT. Previously started on IV heparin in the ED, this was transitioned to subcutaneous low molecular weight heparin. CBC: WBC count 16, hemoglobin 15.5, platelets 318. CMP: Sodium 139, potassium 4.3, chloride 102, serum bicarb 31, BUN 22, creatinine 0.8, glucose 96. LFTs not elevated. Troponin less than 0.012. EKG: Normal sinus rhythm, rate 68 bpm, no acute ST segment elevations or T wave inversions. Patient currently being evaluated emergency department. On room air, not in any apparent respiratory distress. Blood pressures have remained normotensive. Not requiring any fluid bolus or vasopressors. Not tachypneic or tachycardic. Reports that he has been suffering from a persistent cough, with occasional blood-tinged sputum. Last treated with antibiotics and steroids on Friday by his primary care provider. Did have some brief improvement in his symptoms. Last night woke up to left- sided chest pressure/aching sensation with posterior radiation and difficulty breathing. Reports previous left lower extremity pain and inability to bear weight on this extremity. This is improved. Not significantly swollen or edematous. Denies any lightheadedness, syncopal events. Denies any recent travel. Denies any recent hospitalizations, trauma, surgeries. No known malignancies. Reportedly previously worked up by hematology oncology after his original PE. Current vital signs: Temperature 98 F, heart rate 69 bpm, blood pressure 129/80 mmHg, nontachypneic, SpO2 97% on bedside monitor. On today's evaluation of 02/23/2025, the patient is being seen for a follow-up. Patient is doing well with no specific complaints. Hemodynamically stable. Oxygenation is also stable and the patient's pulse ox 99% on room air oxygen. No chest pain. No pleurisy or hemoptysis. No new labs are available from today. The patient is going home on anticoagulation with Eliquis to be followed up on outpatient basis. Rest of the home medication will be resumed. Objective - Vital Signs Vital signs: Vital Signs Temp 98.3 F 02/23/25 08:00 Pulse 62 02/23/25 08:00 Resp 16 02/23/25 08:00 BP 112/76 02/23/25 08:00 Pulse Ox 99 02/23/25 08:00 FiO2 Intake & Output 02/22/25 02/23/25 02/23/25 18:59 06:59 18:59 Weight 132.449 kg 131.5 kg Other: Voiding Method Toilet Toilet # Voids 2 - Exam GENERAL EXAM: Alert, 54-year-old obese male, comfortable in no apparent distress. HEAD: Normocephalic and atraumatic EYES: Normal reaction of pupils, equal size. NOSE: Clear with pink turbinates. THROAT: No erythema or exudates. NECK: No masses, no JVD. CHEST: No chest wall deformity. LUNGS: Equal air entry with no crackles, wheeze, rhonchi or dullness. On room air. No conversational dyspnea or accessory muscle use.. CVS: S1 and S2 normal with no audible murmur, regular rhythm. No extra heart sounds ABDOMEN: No hepatosplenomegaly, active bowel sounds, no guarding or rigidity. SPINE: No scoliosis or deformity SKIN: No rashes CENTRAL NERVOUS SYSTEM: No focal deficits, tone is normal in all 4 extremities. EXTREMITIES: There is no peripheral edema, clubbing, or cyanosis. Peripheral pulses are intact. - Labs CBC & Chem 7: 02/22/25 06:49 02/22/25 06:49 Assessment and Plan Assessment: Acute segmental and subsegmental bilateral pulmonary emboli, Chest CT angio was technically a suboptimal evaluation due to poor bolus timing. There were scattered bilateral filling defects, primarily on the right upper and lower lobe segmental and subsegmental branches. No CT evidence of right-sided heart strain., Clinically and hemodynamically stable. No significant shortness of breath. No hypoxemia. No chest pain or pleurisy at this point in time. Acute dyspnea, secondary to above, improved Acute leukocytosis likely reactive to steroids or above History of pulmonary embolism, previously treated with 4 to 6 months of Eliquis Hypertension History of hyperlipidemia History of GERD Obesity, with a BMI of 37.5 kg/m History of obstructive sleep apnea Plan: Recommend anticoagulation with Eliquis initially 10 mg p.o. twice a day to be reduced to 5 mg p.o. twice daily. He will likely need long-term anticoagulation regarding his recurrent pulmonary embolism. Outpatient follow-up.
== END 2025-02-23 10:37 | disposition home or self-care (01) | DRG 175 ==
LOC: EC 15:34 → 3SCARD 19:37
PROVIDERS: ADMIT Student in an Organized Health Care Education/Training Program; ATTEND Student in an Organized Health Care Education/Training Program
DX: I26.99 Other pulmonary embolism without acute cor pulmonale (principal); J18.9 Pneumonia, unspecified organism; I27.20 Pulmonary hypertension, unspecified; I10 Essential (primary) hypertension; F32.A Depression, unspecified; I08.1 Rheumatic disorders of both mitral and tricuspid valves; E66.9 Obesity, unspecified; I73.9 Peripheral vascular disease, unspecified; E78.5 Hyperlipidemia, unspecified; K21.9 Gastro-esophageal reflux disease without esophagitis; Z68.37 Body mass index [BMI] 37.0-37.9, adult; Z79.01 Long term (current) use of anticoagulants; Z79.82 Long term (current) use of aspirin; Z79.899 Other long term (current) drug therapy; Z86.16 Personal history of COVID-19; Z90.49 Acquired absence of other specified parts of digestive tract; Z91.041 Radiographic dye allergy status; Z87.891 Personal history of nicotine dependence
CPT/HCPCS: 36415; 71046; 71275; 80053; 83735; 84484; 85025; 85379; 85610; 85730; 93005; 93306